=== PATIENT | female | born 1940 | race Two or more races ===

== ENCOUNTER → 2016-12-10 | Outpatient (CLI) | payer OTHER ==
--- NOTE | 2016-12-11 07:26 | HKNOTE ---
DATE OF SERVICE: 12/10/2016 MAIN COMPLAINT: Pain in the right knee. HISTORY OF MAIN COMPLAINT: The patient is a 76-year-old female from [place] who complains of pain in both knees which has been present for about 8 years. The pain in her right knee is worse than in th e left knee (60/40). The pain has become so severe that she is not able to get around. She uses a walker and/or a wheelc hair pretty much all the time to get around. She is not able to take more than 10 steps at a time b ecause of the pain. She saw Dr. Dru Serra, and he has referred her to me for diagnosis and treatmen t of her right knee problem. PRESENT COMPLAINTS: The patient gets pain in both knees as noted above. The pain in the right knee is described as being severe. The pain is aggravated by any attempt at walking and bearing weight on the right leg. She is not able to do stairs. She does get rest pain and night pain. She takes Naprosyn 500 mg twice a day for pain and indicates that this does not give her any relief. She has not had any other treatments in the past. She does not have any problems with her lower back. No numbness or tingling in her legs. She can walk about 10 steps using a walker. She gets pain in the knee with every step that she take s. She does limp all the time. She does not have a shoe lift. It is difficult for her to clip her toenails or tie her shoelaces. PAST ORTHOPEDIC HISTORY: PREVIOUS ORTHOPEDIC OPERATIONS: None. PRIOR CORTISONE INTAKE: None. ALCOHOL INTAKE: None. OTHER JOINT PROBLEMS: None. BLOOD TESTS FOR ARTHRITIS: None. PRIOR INJURIES TO HIPS OR KNEES: None. 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 PAST MEDICAL HISTORY: 1. Hypertension. 2. Arthritis. PAST SURGICAL HISTORY: Negative. ALLERGIES: NONE. MEDICATIONS: 1. Naproxen 50 mg by mouth once or twice a day. 2. Atenolol 50 mg once a day. 3. Losartan once a day. FAMILY HISTORY: Father, not applicable. Mother at unstated age of a stroke and hypertension. SYSTEMS REVIEW: Gait disturbance, hypertension. HABITS: The patient does not smoke or drink alcoholic beverages. 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 Dru Serra, [id number] [place], [place] [address] PHYSICAL EXAMINATION: GENERAL: The patient is a rather fragile looking 76-year-old female. She comes in with her 2 daugh ters. She comes in a wheelchair. HIPS: Both hips have full range of motion without pain. RIGHT KNEE: Varus alignment instability of the medial collateral ligament, 6+ crepitus of the knee and the patella. Extension lacks 15 degrees. Flexion is to 105 degrees. Pain at all limits of mot ion. The medial and lateral collateral ligaments and cruciate ligaments are intact. Barbara test is negative. There is no effusion, tenderness, scarring, or cysts. The patella tracks normally. There is no tenderness on the articular surface of the patella or in the patellar groove. The Q angle is n ormal. IMAGING: Plain x-rays of the right knee brought with her show exceedingly severe degenerative osteo arthritis of the right knee affecting mostly the medial compartment with erosion of the medial tibia l plateau. There is marked narrowing of the medial compartment as well as the patellofemoral joint. Mild osteoporosis. Osteophyte formation. Subchondral sclerosis. Intraosseous cyst formation. DIAGNOSES: 1. Exceedingly severe degenerative osteoarthritis of the right knee. 2. Hypertension. MANAGEMENT: The patient is advised that she could be greatly helped by having a knee replacement op eration. It is remarkable to me that she has not sought surgical attention for this in the past. The operation of total knee replacement was discussed with the patient and her family in a great sury l of detail. Note that all 3 of them speak perfect [place]. One of the daughters indicates that she downloaded my online book on knee arthritis including the te stimonials. The patient was given my manual titled "Arthritis of the Knee Joint" which contains information conc erning the various alternatives of treatment. It includes various forms of conservative treatment, i ncluding the use of nonsteroidal anti-inflammatory medications and their dangers. Various surgical a lternatives are discussed. The technique of total knee replacement is discussed in detail, including possible complications. Included also is a section on the possible complications of blood transfusi on, a section on postoperative precautions, and an exercise program to follow at home after total kn ee replacement. The long-term care of a total knee replacement implant is also covered in detail. Th e patient was instructed to read this manual in its entirety since it is, in and of itself, a form o f informed consent. After reading this manual, the patient will make a list of further questions paresh t may not have been covered adequately. The patient was further advised that this manual, although e xhaustive in nature, is only intended to supplement and complement a one-on-one discussion with me. FINAL DIAGNOSES: 1. Exceedingly severe degenerative osteoarthritis of the right knee. 2. Hypertension. The patient will call to have her surgery scheduled in the very near future. FOOTNOTE: The patient will need a stemmed component on the tibial side. Dictated By: LEAH BERNAL/CITLALLI Conf#: [id number] DID#: [id number]
== END | disposition home or self-care (01) ==
LOC: HKI 15:41
DX: M17.11 Unilateral primary osteoarthritis, right knee (principal); I10 Essential (primary) hypertension
CPT/HCPCS: G0463

== ENCOUNTER → 2017-01-02 | Outpatient (CLI) | payer OTHER ==
[~2017-01-02] MED LIST: HYDR12.58 PO; LOSA25TA5 PO; LOSA50TA6 PO
--- NOTE | 2017-01-02 17:22 | HKNOTE ---
DATE OF SERVICE: 01/02/2017 Patient comes in for preoperative evaluation. Scheduled to have a right total knee replacement on 0 01/03/2017. She has been cleared for surgery by Dr. Dru Serra. They have read my booklet on knee a rthritis and knee replacement surgery. Numerous questions were asked and answered. She comes in wi th her 2 daughters. She has not given any blood for autotransfusion. She understands the risks ass ociated with using hospital blood. She is agreeable to using hospital blood if needed. Note that s he has severe pain in her left knee. She has not been authorized to have x-rays or any treatment fo r the left knee, but clinically she has degenerative osteoarthritis of the left knee. She is agreeable to having me inject cortisone into her left knee while she is under anesthetic karime libra in order to assist with her recovery on her right knee replacement. Dictated By: LEAH BERNAL/CITLALLI Conf#: [id number] DID#: [id number]
== END | disposition home or self-care (01) ==
LOC: HKI 14:18
DX: Z01.818 Encounter for other preprocedural examination (principal)
CPT/HCPCS: G0463

== ENCOUNTER 2017-01-03 05:30 | Inpatient (IN) | payer OTHER ==
[2017-01-02 10:53] VITALS: BMI 28.3
--- NOTE | 2017-01-02 12:38 | PREOPHP ---
DATE OF ADMISSION: 01/03/2017 PREOPERATIVE CLEARANCE HISTORY OF PRESENT ILLNESS: Kylee Pereira is scheduled for right total knee replacement by Dr. Juanito schumacher. The patient is a 76-year-old female and she has history of severe osteoarthritis of the knee for more than 8 years and she is scheduled for right total knee replacement. The patient has history of hypertension, which is controlled with losartan 75 mg daily and low salt diet and exercise. 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 Oth er than that, there is no significant history. PHYSICAL EXAMINATION: As far as medical examination: VITAL SIGNS: Blood pressure is 120/80, temperature is 98, the height is 59 and weight is 137. ENT: Eyes are okay. NECK: Supple. BACK: No positive finding. HEART: Regular sinus rhythm. ABDOMEN: Overweight. No hepatosplenomegaly. PELVIC: Examination was refused. EXTREMITIES: There was tenderness of both knees, right more than left. ALLERGIES: The patient does not have any history of allergies. MEDICATIONS: 1. Besides the medicine for hypertension, the patient is getting also 2. Ecotrin 81 mg daily. 3. Vitamin D. LABORATORY DATA: The laboratory results are okay for surgery. There was some ST-T changes in the davin ctrocardiogram. It was evaluated by the ordnance engineer, Dr. Stein, who approved the surgery and there was no contraindication. So briefly speaking, this patient has some mild hypertension and mild arth ritis of both knees and she is cleared medically for the planned surgery. Dictated By: GENERIC AUTHOR for LEAH BENITEZ/CITLALLI Conf#: [id number] DID#: [id number]
[~2017-01-03] VITALS: Ht 147.3 cm; Wt 63.8 kg
[2017-01-03] VITALS (35 sets, daily range): BP systolic 95–162; BP diastolic 41–95; PULSE 60–88; RESP 13–25; Ht 147.3 cm; Wt 63.8 kg
[~2017-01-03 05:30] MED LIST changes: -HYDR12.58 PO; +KNEE PAIN COCKTAIL VANCO INJ SCH; -LOSA25TA5 PO; -LOSA50TA6 PO
[2017-01-03] MEDS ORDERED: ONDANSETRON 4 MG INJ IV ONE (06:00)
[2017-01-03] MEDS ORDERED: VANCOMYCIN 1 GM (PMX) 250 ML IVPB ONE (06:00)
[2017-01-03] MEDS ORDERED: SOD CHLORIDE 0.9% IVPB ONE ×3 (06:00→19:00)
[2017-01-03] MEDS ORDERED: LACTATED RINGER'S 1,000 ML IV* SCH (06:00)
[2017-01-03] MEDS ORDERED: oxyCODONE (CR) 10 MG TAB [oxyCONTIN] PO ONE (06:00)
[2017-01-03] MEDS ORDERED: ACETAMINOPHEN 1000MG/100ML IV 100 ML IVPB ONE (06:00)
[2017-01-03] MEDS ORDERED: DEXAMETHASONE 4 MG/ML 1 ML INJ IV ONE (06:00)
[2017-01-03] MEDS ORDERED: LANSOPRAZOLE 30 MG CAP PO ONE (06:00)
[2017-01-03] MEDS ORDERED: TRANEXAMIC ACID IVPB ONE ×3 (06:00→19:00)
[2017-01-03] MEDS ORDERED: CELECOXIB 200 MG CAP PO ONE (06:00)
[2017-01-03] MEDS ORDERED: LOSA25TA5 PO (06:25)
[2017-01-03] MEDS ORDERED: LOSA50TA6 PO (06:25)
[2017-01-03] MEDS ORDERED: HYDR12.58 PO (06:25)
--- NOTE | 2017-01-03 07:02 | HPN ---
Date/Time of Note Date/Time of Note DATE: 01/03/17 TIME: 07:02 Interval H&P Admission Note Pt. seen H&P reviewed: No system changes TAVARES MITCHELL PA-C Jan 03, 2017 07:02
[2017-01-03] MEDS ORDERED: METHYLENE BLUE 10 MG/ML VIAL ONE (07:23)
[2017-01-03] MEDS ORDERED: BUPIVACAINE 0.25%/EPI (SDV) 30 ML INJ ONE (07:23)
[2017-01-03] MEDS ORDERED: VANCOMYCIN 1 GM INJ ONE (07:24)
[2017-01-03] MEDS ORDERED: TOBRAMYCIN 1.2 GM POWDER ONE (07:24)
[2017-01-03] MEDS ORDERED: POLYMYXIN B 500000 UNIT INJ ONE (07:24)
[2017-01-03] MEDS ORDERED: ROPIVACAINE 0.2% 100 ML ONE (07:24)
[2017-01-03] MEDS ORDERED: BUPIVACAINE 0.5%/EPI (SDV) 30 ML INJ ONE (07:42)
[2017-01-03] MEDS ORDERED: MIDAZOLAM 1 MG/ML 2 ML INJ ONE (07:46)
[2017-01-03] MEDS ORDERED: SOD CHLORIDE 0.9% IRR SCH ×2 (08:00)
[2017-01-03] MEDS ORDERED: TRANEXAMIC ACID IRR SCH ×2 (08:00)
[2017-01-03] MEDS ORDERED: LIDOCAINE 2% (SDV) 5 ML INJ ONE (08:04)
[2017-01-03] MEDS ORDERED: PROPOFOL 20 ML ONE (08:04)
[2017-01-03] MEDS ORDERED: TRIAMCINOLONE ACET 40 MG/ML INJ ONE (08:31)
[2017-01-03] MEDS ORDERED: hydrALAzine 20 MG INJ ONE (09:13)
[2017-01-03] MEDS ORDERED: BACITRACIN 50000 UNITS INJ IRR ONE (09:22)
[2017-01-03] MEDS ORDERED: ROPIVACAINE 0.2% 100ML BAG INJ ONE (09:23)
[2017-01-03] MEDS ORDERED: ASPIRIN (EC) 325 MG TAB PO ONE (13:00)
[2017-01-03] MEDS ORDERED: SENNA/DOCUSATE NA (8.6MG/50MG) TAB PO PRN (13:00)
[2017-01-03] MEDS ORDERED: HYDROmorphONE 0.2 MG/ML PCA IV PRN (13:00)
[2017-01-03] MEDS ORDERED: FENTAnyl 50 MCG/ML VIAL IV PRN ×2 (13:00)
[2017-01-03] MEDS ORDERED: METOCLOPRAMIDE 10 MG INJ IV PRN (13:00)
[2017-01-03] MEDS ORDERED: DIPHENHYDRAMINE 50 MG INJ IM PRN (13:00)
[2017-01-03] MEDS: CEFAZOLIN 1 GM/50 ML (PMX) 50 ML IVPB SCH ×2 (13:00→20:23)
[2017-01-03] MEDS ORDERED: DIPHENHYDRAMINE 50 MG INJ IV PRN (13:00)
[2017-01-03] MEDS ORDERED: EPHEDrine SULFATE 50 MG/5 ML SYG IV PRN (13:00)
[2017-01-03] MEDS ORDERED: LABETALOL HCL 20MG INJ IV PRN (13:00)
[2017-01-03] MEDS ORDERED: DOCUSATE SODIUM 100 MG CAP PO ONE (13:00)
[2017-01-03] MEDS ORDERED: MEPERIDINE 10 MG/ML 30 ML PCA IV PRN (13:00)
[2017-01-03] MEDS ORDERED: MAGNESIUM HYDROXIDE 30ML CUP PO PRN (13:00)
[2017-01-03] MEDS ORDERED: hydrALAzine 20 MG INJ IV PRN (13:00)
[2017-01-03] MEDS ORDERED: NA PHOSPHATE/BIPHOS 133 ML ENEMA PR PRN (13:00)
[2017-01-03] MEDS ORDERED: oxyCODONE 5 MG TAB PO PRN ×2 (13:00)
[2017-01-03] MEDS ORDERED: HYDROmorphONE (0.2 MG/ML) 10ML SYG IV PRN ×2 (13:00)
[2017-01-03] MEDS ORDERED: MEPERIDINE 25 MG INJ IV PRN (13:00)
[2017-01-03] MEDS ORDERED: morphine (1 MG/ML) 10ML SYRINGE IV PRN ×2 (13:00)
[2017-01-03] MEDS ORDERED: BISACODYL 10 MG SUPP PR PRN (13:00)
[2017-01-03] MEDS ORDERED: COUMADIN NOTE XX SCH (13:00)
[2017-01-03] MEDS ORDERED: NALOXONE (0.4 MG/ML) INJ IV PRN (13:00)
[2017-01-03] MEDS ORDERED: ONDANSETRON 4 MG INJ IV PRN (13:00)
[2017-01-03] MEDS ORDERED: BETHANECHOL 25 MG TAB PO PRN (13:00)
[2017-01-03] MEDS ORDERED: MIDAZOLAM 1 MG/ML 2 ML INJ IV PRN (13:00)
--- NOTE | 2017-01-03 13:00 | PDOCDIS ---
Discharge Instructions DIAGNOSIS Discharge Diagnosis: s/p right total knee replacement CONDITION Patient Condition: Stable HOME CARE INSTRUCTIONS: Diet Instructions: Regular ACTIVITY: Activity Restrictions: Slowly Increase Activity Rest between Activity Avoid heavy lifting No Sexual Activity Do not Drive Do not operate Machinery Avoid Heavy Housework Keep Limb Elevated Weight Bearing (as tolerated and with walker (if needed)) Bathing Restrictions: Shower (Use tegaderm dressing with pad over the wound while showering. Make sure area is dry prior to removal of tegaderm after shower. Do this everyday until flor are removed around 10 days after surgery. ) FOLLOW UP/APPOINTMENTS Appointments Follow up 01/23/17 at 2:45PM Continue DVT prophylaxis Pain meds as needed Continue with physical therapy at custodial facility. TAVARES MITCHELL PA-C Jan 03, 2017 13:00
--- NOTE | 2017-01-03 13:24 | OPR ---
DATE OF OPERATION: 01/03/2017 FOOTNOTE TO THE OPERATIVE REPORT OF 01/03/2017 Note that the medial collateral ligaments are rather flimsy. The collateral ligament did, however, r emain intact. Parts of the anterior fibers were too flimsy to hold sutures so two Super Mitek sutur es were embedded in the bone and the more substantive part of the medial collateral ligaments were a nchored down to the bone. Dictated By: LEAH BERNAL/CITLALLI Conf#: [id number] DID#: [id number]
--- NOTE | 2017-01-03 13:33 | RADRPT ---
PROCEDURE: X-ray fluoroscopy guidance CLINICAL INDICATION: Right knee pain, right knee replacement, fluoroscopic guidance. TECHNIQUE: Fluoroscopic guidance was utilized for an intraoperative procedure. COMPARISON: None available FINDINGS: Fluoroscopic guidance was utilized for and intraoperative procedure. 7 seconds of fluoroscopy time w as utilized for the procedure. 3 x-ray images were obtained during the procedure in progress. Images demonstrate intraoperative surgical instruments over the knee. Severe osteoarthritis of the knee i s seen. IMPRESSION: X-ray fluoroscopic guidance utilized for intraoperative procedure. Severe osteoarthritis of the knee. Images that demonstrate intraoperative surgical instruments over the knee. Please see procedure note for details. RPTAT: AA .Dariel Fontenot MD, Date Time Electronically viewed and signed by .Dariel Fontenot MD, on 01/03/2017 13:33 .P/
--- NOTE | 2017-01-03 13:34 | RADRPT ---
PROCEDURE: XR Knee. CLINICAL INDICATION: Status post right knee replacement TECHNIQUE: AP and lateral view of the right knee were obtained. The images reviewed on a PACS wor kstation. COMPARISON: January 03, 2017 11:09 a.m. FINDINGS: Complete right knee replacement is identified. Prosthetic components are in appropriate position an d alignment. No fractures or destructive lesions are observed. Surgical drain is seen in the knee. Soft tissue air is procedural in nature. IMPRESSION: Status post right knee replacement. Prosthetic components are in appropriate position and alignment . RPTAT: AA .Dariel Fontenot MD, Date Time Electronically viewed and signed by .Dariel Fontenot MD, on 01/03/2017 13:34 .P/
--- NOTE | 2017-01-03 13:39 | RADRPT ---
PROCEDURE: XR Knee. CLINICAL INDICATION: Intraoperative localization TECHNIQUE: A single lateral view of the right knee was obtained. The images reviewed on a PACS [facility]. COMPARISON: Plain films from the same day FINDINGS: Right knee arthroplasty. A probe is directed between the femoral and tibial components. IMPRESSION: Intraoperative localization for right knee arthroplasty placement. RPTAT: QQ. .Beatrice Plata MD, MD Date Time Electronically viewed and signed by .Beatrice Plata MD, on 01/03/2017 13:39 .F/
--- NOTE | 2017-01-03 14:04 | CONS ---
DATE OF ADMISSION: 01/03/2017 DATE OF CONSULTATION: 01/03/2017 REQUESTING PHYSICIAN: Syed De León MD REASON FOR CONSULTATION: Medical management. HISTORY OF PRESENT ILLNESS: This is a pleasant 76-year-old female with past medical history of morb id obesity, severe osteoarthritis of the knee more than 8 years, hypertension. She has been having difficulty with ambulation and increased severity of the pain in her right knee and was seen and kelsy luated by the orthopedic surgeon as an outpatient. After failing outpatient means of treatme nt such as pain medication, assistive device and physical therapy, it was decided to proceed with gutierrez rgical intervention such as right total knee replacement. The patient was admitted to [facility] and after discussing the risk and benefits of the surgery and signing a consent, she was taken to the OR today on 01/03/2017 for right total knee replacement. Under general anesthesia , the patient had total right knee surgery, which patient tolerated the procedure well and was trans ported to the recovery room, where medical team was consulted for further management. At this time, the patient denies having any chest pain, shortness of breath, nausea, vomiting, diarrhea. No head ache, dizziness, lightheadedness. No change in visual acuity, diplopia, photophobia. No pain in he r extremities. No abdominal pain. No neck pain. No restricted range of motion in her neck or any other discomfort at this time. PAST MEDICAL AND SURGICAL HISTORY: 1. Obesity. 2. Hypertension. 3. Osteoarthritis. MEDICATIONS: 1. Hydrochlorothiazide. 2. Losartan. ALLERGIES: NO KNOWN DRUG ALLERGIES. FAMILY HISTORY: Positive for hypertension. SOCIAL HISTORY: Negative x3 for smoking, alcohol, illicit drugs. REVIEW OF SYSTEMS: As above per HPI, otherwise 12 review of systems was found to be negative. PHYSICAL EXAMINATION: VITAL SIGNS: Temperature 98.5, pulse 60, respirations 18, blood pressure 134/63, oxygen saturation 99% in room air. GENERAL APPEARANCE: The patient is lying in bed comfortably without any acute distress. She is herberth ke, alert, oriented. She is able to answer my questions properly. EYES AND ENT: Conjunctivae and lids are normal. Pupils are normal. Extraocular normal. Hearing g rossly normal. Lips and gums normal. Oral mucosa is moist. NECK: Supple. Trachea is midline. No lymphadenopathy. RESPIRATORY: Effort is normal. Clear to auscultation bilaterally. CARDIOVASCULAR: Normal S1, S2. Regular rhythm and rate. No murmur, no bruits, no edema. Peripher al pulses, radial pulses palpable. Capillary refill is normal. CHEST: Normal expansion of thorax during inspiration. GASTROINTESTINAL: Abdomen is soft, nontender, nondistended. Bowel sounds present. No guarding, no rebound. GENITOURINARY: Deferred. MUSCULOSKELETAL: Upper extremities within normal limits. Left lower extremity within normal limits . Right lower extremity, she is status post right knee surgery. The surgical site is dry and clean and is wrapped in dry dressing. There is a drain in place. PSYCHIATRIC: She is awake, alert, oriented. LABORATORY WORK AND IMAGING: WBC 5.6, hemoglobin 13.3, hematocrit 40.9, platelets 224. Glucose 98, BUN 11, creatinine 0.77, GFR 76, sodium 141, potassium 3.8, chloride 99, bicarbonate 27, calcium 9. 6. LFTs all within normal limits. Urinalysis negative. ASSESSMENT AND PLAN: 1. Osteoarthritis of the right knee. The patient is status post total knee replacement. Continue pain medication, physical therapy. The patient has been placed on aspirin for deep venous thrombosi s prophylaxis as per orthopedic surgeon recommendation. 2. Essential hypertension, well controlled on Losartan. 3. Obesity with BMI 29.4. Diet and exercise will be recommended. 4. Deep venous thrombosis prophylaxis, on aspirin. 5. For gastrointestinal prophylaxis, on proton pump inhibitor. 6. We will continue to monitor patient closely. Further recommendations, management and treatment as per clinical course. Total amount of time was spent for evaluation of patient and consultation note 40 minutes. Dictated By: RAUL SILVA/NTS Conf#: [id number] DID#: [id number]
[2017-01-03] MEDS: ONDANSETRON 4 MG INJ IV SCH ×2 (14:22→18:36)
[2017-01-03] MEDS: ACETAMINOPHEN 1000MG/100ML IV 100 ML IVPB SCH ×2 (14:24→21:25)
[2017-01-03] MEDS ORDERED: BACITRACIN 50000 UNITS INJ ONE (15:13)
[2017-01-03] MEDS: DEXTROSE 5%-LR 1,000 ML IV SCH (16:15)
[2017-01-03] MEDS: ZOLPIDEM 5 MG TAB PO PRN (22:35)
[2017-01-04] MEDS: ONDANSETRON 4 MG INJ IV SCH ×2 (00:12→06:20)
[2017-01-04] MEDS: DEXTROSE 5%-LR 1,000 ML IV SCH ×2 (01:02→07:33)
[2017-01-04] MEDS: CEFAZOLIN 1 GM/50 ML (PMX) 50 ML IVPB SCH (04:29)
[2017-01-04 05:04] LABS: BASOPHILS % 0.3 % (0.0-2.0); EOSINOPHILS % 0.1 % (0.0-7.0); HEMATOCRIT 28.7 % (37.0-47.0); HEMOGLOBIN 9.7 g/dl (12.0-16.0); LYMPHOCYTES # 1.2 10^3/ul (0.8-2.9); MEAN CORPUSCULAR HGB CONC 33.8 g/dl (32.0-37.0); MEAN CORPUSCULAR VOLUME 88.8 fl (82.0-101.0); MEAN PLATELET VOLUME 6.4 fl (7.4-10.4); MONOCYTE # 0.6 10^3/ul (0.3-0.9); MONOCYTES % 6.5 % (0.0-11.0); NEUTROPHIL # 7.6 10^3/ul (1.6-7.5); NEUTROPHILS % 80.1 % (39.0-77.0); PLATELET COUNT 198 10^3/UL (140-440); RED BLOOD COUNT 3.24 10^6/ul (4.20-5.40); RED CELL DISTRIBUTION WIDTH 13.8 % (11.5-14.5); UNCORRECTED WBC 9.4 10^3/ul (4.8-10.8); WHITE BLOOD COUNT 9.4 10^3/ul (4.8-10.8)
[2017-01-04] MEDS: ACETAMINOPHEN 1000MG/100ML IV 100 ML IVPB SCH ×3 (05:16→21:12)
[2017-01-04 05:26] LABS: POTASSIUM 3.6 mmol/L (3.5-5.1)
[2017-01-04 05:28] LABS: CONDITION 1; CREATININE 0.72 mg/dl (0.44-1.00)
[2017-01-04] MEDS ORDERED: BUPIVACAINE 0.25%/EPI (SDV) 30 ML INJ INJ PRN (06:00)
[2017-01-04] MEDS ORDERED: KETOROLAC 30 MG INJ INJ PRN (06:00)
[2017-01-04 06:10] LABS: ADD UMIC YES; URINE BILIRUBIN (Dip) NEGATIVE (NEGATIVE); URINE BLOOD (Dip) 2+ (NEGATIVE); URINE COLOR LT. YELLOW (YELLOW); URINE GLUCOSE (Dip) NEGATIVE (NEGATIVE); URINE KETONES (Dip) NEGATIVE (NEGATIVE); URINE LEUKOCYTE ESTERASE (Dip) NEGATIVE (NEGATIVE); URINE NITRITE (Dip) NEGATIVE (NEGATIVE); URINE TOTAL PROTEIN (Dip) NEGATIVE (NEGATIVE); URINE UROBILINOGEN (Dip) 0.2 E.U./dL (0.1-1.0)
[2017-01-04] MEDS: DEXAMETHASONE 4 MG/ML 1 ML INJ IV SCH (06:20)
[2017-01-04] MEDS: oxyCODONE 5 MG TAB PO PRN ×2 (06:28→16:21)
[2017-01-04 06:38] LABS: BACTERIA,URINE RARE; SQUAMOUS EPITHELIAL CELL,UR OCCASIONAL
[2017-01-04 07:35] VITALS: BP 125/72; RESP 16
[2017-01-04] MEDS: FERROUS FUMARATE (SR) TAB PO SCH ×2 (08:34→21:12)
[2017-01-04] MEDS: CELECOXIB 200 MG CAP PO SCH ×2 (08:35→21:12)
[2017-01-04] MEDS: ASPIRIN (EC) 325 MG TAB PO SCH ×2 (08:35→21:12)
[2017-01-04] MEDS: DOCUSATE SODIUM 100 MG CAP PO SCH ×2 (08:35→21:12)
--- NOTE | 2017-01-04 11:36 | PN ---
Date/Time of Note Date/Time of Note DATE: 01/04/17 TIME: 11:33 Assessment/Plan Lines/Catheters IV Catheter Type (from Nrsg): Peripheral IV Marion in Place (from Nrsg): Yes Assessment/Plan Assessment/Plan Stable POD #1, s/p right TKA -pain cocktail given -pain meds prn -cont ASA/SCDs for DVT prophylaxis -OOB with PT -drain removed -check AM labs. H&H slightly low. Will monitor for now. -d/c planning. Patient would like to go to [facility] upon d/c Subjective 24 Hr Interval Summary Doing well. No acute overnight events. Worked with PT. Mild pain. H&H mildy low but patient asymptomatic. VSS, afebrile. Exam/Review of Systems Vital Signs Vitals Vital Signs Date Time Temp Pulse Resp B/P Pulse Ox O2 Delivery O2 Flow Rate FiO2 01/04/17 07:35 97.8 62 16 125/72 96 01/03/17 18:10 Room Air Intake and Output 01/03/17 01/03/17 01/04/17 15:00 23:00 07:00 Intake Total 2712.7 ml 816.4 ml 1350 ml Output Total 200 ml 450 ml 1110 ml Balance 2512.7 ml 366.4 ml 240 ml Exam Free Text/Dictation Hemovac: 360cc Dressing dry Incision clean, dry, and intact without redness or drainage Thigh soft 5/5 Quadriceps, Tibialis Anterior, EHL, Gastroc, Soleus, Peroneals Normal sensation Palpable DT/PT, CR <2 sec No distal edema Results Result Diagram: 01/04/17 0425 01/04/17 0425 VICKI SOLO PA-C Jan 04, 2017 11:36
--- NOTE | 2017-01-04 16:13 | PN ---
Date/Time of Note Date/Time of Note DATE: 01/04/17 TIME: 16:11 Assessment/Plan VTE Prophylaxis VTE Prophylaxis Intervention: other Lines/Catheters IV Catheter Type (from Nrs): Peripheral IV Assessment/Plan Chief Complaint/Hosp Course 1. Osteoarthritis of the right knee status post total knee replacement - Continue pain medication, physical therapy. The patient has been placed on aspirin for deep venous thrombosis prophylaxis as per orthopedic surgeon recommendation. 2. Essential hypertension, well controlled on Losartan. 3. Obesity with BMI 29.4. Diet and exercise will be recommended. 4. Deep venous thrombosis prophylaxis, on aspirin. 5. For gastrointestinal prophylaxis, on proton pump inhibitor. Problems: Subjective 24 Hr Interval Summary Musculoskeletal: bone/joint pain Exam/Review of Systems Vital Signs Vitals Vital Signs Date Time Temp Pulse Resp B/P Pulse Ox O2 Delivery O2 Flow Rate FiO2 01/04/17 07:35 97.8 62 16 125/72 96 01/03/17 18:10 Room Air Intake and Output 01/03/17 01/03/17 01/04/17 15:00 23:00 07:00 Intake Total 2712.7 ml 816.4 ml 1350 ml Output Total 200 ml 450 ml 1110 ml Balance 2512.7 ml 366.4 ml 240 ml Exam Constitutional: alert Respiratory: clear to auscultation Cardiovascular: regular rate and rhythm Gastrointestinal: soft, No distended Musculoskeletal: nl extremities to inspection Results Result Diagram: 01/04/17 0425 01/04/17 0425 Results 24 hrs Laboratory Tests Test 01/04/17 04:21 01/04/17 04:25 Urine Bacteria RARE Urine Bilirubin NEGATIVE Urine Clarity CLEAR Urine Color LT. YELLOW Urine Glucose NEGATIVE Urine Hemoglobin 2+ H Urine Ketones NEGATIVE Urine Leukocyte Esterase NEGATIVE Urine Microscopic RBC 10-25 Urine Microscopic WBC 0-2 Urine Nitrite NEGATIVE Urine Specific [place] <=1.005 L Urine Squamous Epithelial Cells OCCASIONAL Urine Total Protein NEGATIVE Urine Urobilinogen 0.2 E.U./dL Urine pH 6.0 Anion Gap 10 Basophils # 0.0 Basophils % 0.3 Blood Morphology Comment Blood Urea Nitrogen 13 Calcium Level 8.0 L Carbon Dioxide Level 27 Chloride Level 104 Creatinine 0.72 Eosinophils # 0.0 Eosinophils % 0.1 Glucose Level 122 Hematocrit 28.7 L Hemoglobin 9.7 L Lymphocytes # 1.2 Lymphocytes % 13.0 L Mean Corpuscular Hemoglobin 30.0 Mean Corpuscular Hemoglobin Concent 33.8 Mean Corpuscular Volume 88.8 Mean Platelet Volume 6.4 L Monocytes # 0.6 Monocytes % 6.5 Neutrophils # 7.6 H Neutrophils % 80.1 H Nucleated Red Blood Cells # 0.0 Nucleated Red Blood Cells % 0.0 Platelet Count 198 Potassium Level 3.6 Red Blood Count 3.24 L Red Cell Distribution Width 13.8 Sodium Level 137 White Blood Count 9.4 Medications Medications Current Medications Oxycodone HCl (Roxicodone) 20 mg Q3H PRN PO PAIN LEVEL 8-10; Start 01/03/17 at 13:00 Oxycodone HCl (Roxicodone) 10 mg Q3H PRN PO PAIN LEVEL 4-7; Start 01/03/17 at 13:00 Oxycodone HCl 5 mg 5 mg Q3H PRN PO PAIN LEVEL 1-3 Last administered on 06:28; Admin Dose 5 MG; Start 01/03/17 at 13:00 Acetaminophen (Ofirmev 1000mg/ 100ml Iv) 100 ml @ 400 mls/hr Q8H IVPB Last administered on 01/04/17 13:16; Admin Dose 400 MLS/HR; Start 01/03/17 at 14:00 ; Stop 01/05/17 at 06:14 Zolpidem Tartrate (Ambien) 5 mg HS PRN PO INSOMNIA Last administered on 22:35; Admin Dose 5 MG; Start 01/03/17 at 13:00 Miscellaneous Information (Note) NOTE XX ; Start 01/03/17 at 13:00 Aspirin (Ecotrin) 325 mg BID PO Last administered on 01/04/17 08:35; Admin Dose 325 MG; Start 01/04/17 at 09:00 Celecoxib (Celebrex) 200 mg BID PO Last administered on 01/04/17 08:35; Admin Dose 200 MG; Start 01/04/17 at 09:00 Dexamethasone (Decadron) 4 mg DAILY@07 IV Last administered on 01/04/17 06:20 ; Admin Dose 4 MG; Start 01/04/17 at 07:00; Stop 01/07/17 at 06:59 Pantoprazole (Protonix Tab) 40 mg DAILY@06 PO ; Start 01/05/17 at 06:00 Docusate Sodium/ Ferrous Fumarate (Dorian-Sequels) 1 tab BID PO Last administered on 01/04/17 08:34; Admin Dose 1 TAB; Start 01/04/17 at 09:00 Docusate Sodium (Colace) 200 mg BID PO Last administered on 01/04/17 08:35; Admin Dose 200 MG; Start 01/04/17 at 09:00; Stop 01/07/17 at 08:59 Simethicone (Mylicon) 80 mg TID PRN PO DISTENSION/GAS/BLOATING; Start 01/03/17 at 13:00 Senna/Docusate Sodium (Senokot-S) 2 tab BID PRN PO CONSTIPATION; Start at 13:00 Magnesium Hydroxide (Milk Of Mag) 30 ml HS PRN PO CONSTIPATION; Start 01/03/17 at 13:00 Bisacodyl (Dulcolax Supp) 10 mg DAILY PRN PA CONSTIPATION; Start 01/03/17 at 13 :00 Sodium Biphosphate/ Sodium Phosphate (Fleet Enema) 133 ml DAILY PRN PA CONSTIPATION; Start 01/03/17 at 13:00 Diphenhydramine HCl (Benadryl) 25 mg Q4H PRN IM ITCHING OR RASH; Start at 13:00 Ketorolac Tromethamine (Toradol) 30 mg DAILY@06 PRN INJ ADMINSTER BY SURGEON ONLY; Start 01/04/17 at 06:00; Stop 01/08/17 at 05:59 Bupivacaine HCl/ Epinephrine Bitart (Marcaine 0.25%/ Epi (Sdv) 30 ml) 20 ml DAILY@06 PRN INJ ADMINSTER BY SURGEON ONLY; Start 01/04/17 at 06:00; Stop 01/08 at 05:59 Naloxone HCl (Narcan) 0.2 mg Q2M PRN IV DECREASED REPIRATORY RATE; Start at 13:00 ABIMAEL FAROOQ Jan 04, 2017 16:12
[2017-01-04 20:00] VITALS: BP 142/65; RESP 20
[2017-01-05] MEDS: ZOLPIDEM 5 MG TAB PO PRN ×2 (00:44→21:47)
[2017-01-05 05:16] LABS: POTASSIUM 3.5 mmol/L (3.5-5.1)
[2017-01-05 05:19] LABS: CREATININE 0.72 mg/dl (0.44-1.00)
[2017-01-05 05:29] LABS: BASOPHILS % 0.2 % (0.0-2.0); EOSINOPHILS % 0.2 % (0.0-7.0); HEMATOCRIT 28.6 % (37.0-47.0); HEMOGLOBIN 9.8 g/dl (12.0-16.0); LYMPHOCYTES # 0.9 10^3/ul (0.8-2.9); MEAN CORPUSCULAR HEMOGLOBIN 30.3 pg (29.0-33.0); MEAN CORPUSCULAR HGB CONC 34.4 g/dl (32.0-37.0); MEAN CORPUSCULAR VOLUME 88.2 fl (82.0-101.0); MEAN PLATELET VOLUME 6.8 fl (7.4-10.4); MONOCYTE # 0.5 10^3/ul (0.3-0.9); MONOCYTES % 6.3 % (0.0-11.0); NEUTROPHIL # 6.5 10^3/ul (1.6-7.5); NEUTROPHILS % 82.3 % (39.0-77.0); PLATELET COUNT 190 10^3/UL (140-440); RED BLOOD COUNT 3.24 10^6/ul (4.20-5.40); RED CELL DISTRIBUTION WIDTH 13.6 % (11.5-14.5); UNCORRECTED WBC 7.9 10^3/ul (4.8-10.8); WHITE BLOOD COUNT 7.9 10^3/ul (4.8-10.8)
[2017-01-05 06:08] LABS: CONDITION 1
[2017-01-05] MEDS: DEXAMETHASONE 4 MG/ML 1 ML INJ IV SCH (06:18)
[2017-01-05] MEDS: PANTOPRAZOLE (EC) 40 MG TAB PO SCH (06:18)
[2017-01-05] MEDS: ACETAMINOPHEN 1000MG/100ML IV 100 ML IVPB SCH (06:23)
[2017-01-05 07:34] VITALS: BP 154/73; RESP 16
[2017-01-05] MEDS: CELECOXIB 200 MG CAP PO SCH ×2 (10:05→21:43)
[2017-01-05] MEDS: FERROUS FUMARATE (SR) TAB PO SCH ×2 (10:05→21:43)
[2017-01-05] MEDS: ASPIRIN (EC) 325 MG TAB PO SCH ×2 (10:05→21:43)
[2017-01-05] MEDS: DOCUSATE SODIUM 100 MG CAP PO SCH ×2 (10:06→21:43)
--- NOTE | 2017-01-05 10:11 | PN ---
Date/Time of Note Date/Time of Note DATE: 01/05/17 TIME: 10:10 Assessment/Plan Lines/Catheters IV Catheter Type (from Nrsg): Peripheral IV Assessment/Plan Assessment/Plan Stable POD #2, s/p right TKA -pain cocktail given -pain meds as needed -continue ASA/SCDs for DVT prophylaxis -OOB with PT -check AM labs. H&H stable -d/c planning. Will likely transfer to [facility] tomorrow. Subjective 24 Hr Interval Summary Doing well. No acute overnight events. Denies significant pain. Progressing well with PT. VSS, afebrile. Plan to d/c tomorrow to [facility]. Exam/Review of Systems Vital Signs Vitals Vital Signs Date Time Temp Pulse Resp B/P Pulse Ox O2 Delivery O2 Flow Rate FiO2 01/05/17 07:34 98.0 68 16 154/73 95 01/03/17 18:10 Room Air Intake and Output 01/04/17 01/04/17 01/05/17 15:00 23:00 07:00 Intake Total 100 ml 1600 ml 600 ml Output Total 850 ml 820 ml Balance 100 ml 750 ml -220 ml Exam Free Text/Dictation Dressing dry Incision clean, dry, and intact without redness or drainage Thigh soft 5/5 Quadriceps, Tibialis Anterior, EHL, Gastroc, Soleus, Peroneals Normal sensation Palpable DT/PT, CR <2 sec No distal edema Results Result Diagram: 01/05/179 01/05/179 VICKI SOLO PA-C Jan 05, 2017 10:11
--- NOTE | 2017-01-05 13:08 | PN ---
Date/Time of Note Date/Time of Note DATE: 01/05/17 TIME: 13:03 Assessment/Plan VTE Prophylaxis VTE Prophylaxis Intervention: other Lines/Catheters IV Catheter Type (from Nrs): Saline Lock Assessment/Plan Chief Complaint/Hosp Course 1. Osteoarthritis of the right knee status post total knee replacement - Continue pain medication, physical therapy. The patient has been placed on aspirin for deep venous thrombosis prophylaxis as per orthopedic surgeon recommendation. 2. Essential hypertension -Home regimen had been Losartan 50 mg QAM and 25 Q Evening and HCTZ 12.5 QAM, BP reportedly was still high on that regimen so have increased the evening Losartan dose to 50 mg, if BP is stable on this regimen today and tomorrow then regimen should be changed to this new regimen upon DC 3. Obesity with BMI 29.4. Diet and exercise will be recommended. 4. Deep venous thrombosis prophylaxis, on aspirin. 5. For gastrointestinal prophylaxis, on proton pump inhibitor Dispo- Ortho likely to DC to Rehab center tomorrow Problems: Subjective 24 Hr Interval Summary Constitutional: no complaints Exam/Review of Systems Vital Signs Vitals Vital Signs Date Time Temp Pulse Resp B/P Pulse Ox O2 Delivery O2 Flow Rate FiO2 01/05/17 07:34 98.0 68 16 154/73 95 01/03/17 18:10 Room Air Intake and Output 01/04/17 01/04/17 01/05/17 15:00 23:00 07:00 Intake Total 100 ml 1600 ml 600 ml Output Total 850 ml 820 ml Balance 100 ml 750 ml -220 ml Exam Constitutional: alert, oriented Respiratory: clear to auscultation Cardiovascular: regular rate and rhythm Gastrointestinal: soft, No distended Musculoskeletal: nl extremities to inspection Results Result Diagram: 01/05/17 0429 01/05/17 0429 Results 24 hrs Laboratory Tests Test 01/05/17 04:29 Anion Gap 9 Basophils # 0.0 Basophils % 0.2 Blood Morphology Comment Blood Urea Nitrogen 13 Calcium Level 8.0 L Carbon Dioxide Level 29 Chloride Level 105 Creatinine 0.72 Eosinophils # 0.0 Eosinophils % 0.2 Glucose Level 109 Hematocrit 28.6 L Hemoglobin 9.8 L Lymphocytes # 0.9 Lymphocytes % 11.0 L Mean Corpuscular Hemoglobin 30.3 Mean Corpuscular Hemoglobin Concent 34.4 Mean Corpuscular Volume 88.2 Mean Platelet Volume 6.8 L Monocytes # 0.5 Monocytes % 6.3 Neutrophils # 6.5 Neutrophils % 82.3 H Nucleated Red Blood Cells # 0.0 Nucleated Red Blood Cells % 0.0 Platelet Count 190 Potassium Level 3.5 Red Blood Count 3.24 L Red Cell Distribution Width 13.6 Sodium Level 139 White Blood Count 7.9 Medications Medications Current Medications Oxycodone HCl (Roxicodone) 20 mg Q3H PRN PO PAIN LEVEL 8-10; Start 01/03/17 at 13:00 Oxycodone HCl (Roxicodone) 10 mg Q3H PRN PO PAIN LEVEL 4-7; Start 01/03/17 at 13:00 Oxycodone HCl (Roxicodone) 5 mg Q3H PRN PO PAIN LEVEL 1-3 Last administered on 01/04/17 16:21; Admin Dose 5 MG; Start 01/03/17 at 13:00 Zolpidem Tartrate (Ambien) 5 mg HS PRN PO INSOMNIA Last administered on 00:44; Admin Dose 5 MG; Start 01/03/17 at 13:00 Miscellaneous Information (Note) NOTE XX ; Start 01/03/17 at 13:00 Aspirin (Ecotrin) 325 mg BID PO Last administered on 01/05/17 10:05; Admin Dose 325 MG; Start 01/04/17 at 09:00 Celecoxib (Celebrex) 200 mg BID PO Last administered on 01/05/17 10:05; Admin Dose 200 MG; Start 01/04/17 at 09:00 Dexamethasone (Decadron) 4 mg DAILY@07 IV Last administered on 01/05/17 06:18 ; Admin Dose 4 MG; Start 01/04/17 at 07:00; Stop 01/07/17 at 06:59 Pantoprazole (Protonix Tab) 40 mg DAILY@06 PO Last administered on 01/05/17 06 :18; Admin Dose 40 MG; Start 01/05/17 at 06:00 Docusate Sodium/ Ferrous Fumarate (Dorian-Sequels) 1 tab BID PO Last administered on 01/05/17 10:05; Admin Dose 1 TAB; Start 01/04/17 at 09:00 Docusate Sodium (Colace) 200 mg BID PO Last administered on 01/05/17 10:06; Admin Dose 200 MG; Start 01/04/17 at 09:00; Stop 01/07/17 at 08:59 Simethicone (Mylicon) 80 mg TID PRN PO DISTENSION/GAS/BLOATING; Start 01/03/17 at 13:00 Senna/Docusate Sodium (Senokot-S) 2 tab BID PRN PO CONSTIPATION; Start at 13:00 Magnesium Hydroxide (Milk Of Mag) 30 ml HS PRN PO CONSTIPATION; Start 01/03/17 at 13:00 Bisacodyl (Dulcolax Supp) 10 mg DAILY PRN NC CONSTIPATION; Start 01/03/17 at 13 :00 Sodium Biphosphate/ Sodium Phosphate (Fleet Enema) 133 ml DAILY PRN NC CONSTIPATION; Start 01/03/17 at 13:00 Diphenhydramine HCl (Benadryl) 25 mg Q4H PRN IM ITCHING OR RASH; Start at 13:00 Ketorolac Tromethamine (Toradol) 30 mg DAILY@06 PRN INJ ADMINSTER BY SURGEON ONLY; Start 01/04/17 at 06:00; Stop 01/08/17 at 05:59 Bupivacaine HCl/ Epinephrine Bitart (Marcaine 0.25%/ Epi (Sdv) 30 ml) 20 ml DAILY@06 PRN INJ ADMINSTER BY SURGEON ONLY; Start 01/04/17 at 06:00; Stop 01/08 at 05:59 Naloxone HCl (Narcan) 0.2 mg Q2M PRN IV DECREASED REPIRATORY RATE; Start at 13:00 Losartan Potassium (Cozaar) 50 mg BID PO ; Start 01/05/17 at 12:00 Hydrochlorothiazide (Hydrochlorothiazide) 12.5 mg DAILY PO ; Start 01/06/17 at 09:00 ABIMAEL FAROOQ Jan 05, 2017 13:08
[2017-01-05] MEDS: LOSARTAN 50 MG TAB PO SCH ×2 (14:53→21:43)
[2017-01-06] MEDS: PANTOPRAZOLE (EC) 40 MG TAB PO SCH (05:56)
[2017-01-06] MEDS: DEXAMETHASONE 4 MG/ML 1 ML INJ IV SCH (06:03)
[2017-01-06 06:50] LABS: BASOPHILS % 0.4 % (0.0-2.0); EOSINOPHILS % 0.6 % (0.0-7.0); HEMATOCRIT 28.1 % (37.0-47.0); HEMOGLOBIN 9.7 g/dl (12.0-16.0); LYMPHOCYTES # 1.2 10^3/ul (0.8-2.9); LYMPHOCYTES % 16.9 % (15.0-51.0); MEAN CORPUSCULAR HEMOGLOBIN 30.4 pg (29.0-33.0); MEAN CORPUSCULAR HGB CONC 34.4 g/dl (32.0-37.0); MEAN CORPUSCULAR VOLUME 88.5 fl (82.0-101.0); MEAN PLATELET VOLUME 6.8 fl (7.4-10.4); MONOCYTE # 0.5 10^3/ul (0.3-0.9); MONOCYTES % 7.5 % (0.0-11.0); NEUTROPHIL # 5.3 10^3/ul (1.6-7.5); NEUTROPHILS % 74.6 % (39.0-77.0); PLATELET COUNT 192 10^3/UL (140-440); RED BLOOD COUNT 3.17 10^6/ul (4.20-5.40); RED CELL DISTRIBUTION WIDTH 13.9 % (11.5-14.5); UNCORRECTED WBC 7.1 10^3/ul (4.8-10.8); WHITE BLOOD COUNT 7.1 10^3/ul (4.8-10.8)
[2017-01-06 06:55] LABS: CONDITION 1
--- NOTE | 2017-01-06 08:07 | PN ---
Date/Time of Note Date/Time of Note DATE: 01/06/17 TIME: 08:02 Assessment/Plan VTE Prophylaxis VTE Prophylaxis Intervention: ambulation, SCD's, other (Aspirin 325 mg twice daily) Lines/Catheters IV Catheter Type (from Nrsg): Saline Lock Assessment/Plan Assessment/Plan -Pain Cocktail Given and Drains removed. -Pain Meds as needed -Dress change performed today -ASA for DVT Prophylaxis x 6 weeks outpatient discussed. -Continue monitoring as outpatient on discharge -Follow-up at scheduled postop outpatient appointment or sooner if there is any issue. -Tegaderm dressings given with specific instructions to use as outpatient to keep wound dry until flor are moved in around 10 days. -Patient Stable -Discharge to [facility] Subjective 24 Hr Interval Summary 76-year-old female postop day 3 status post right total knee replacement. Denies any pain complaints. Patient is up and walking throughout hallways with physical therapy. Uses front wheeled walker for assisted ambulation. Very pleased status post surgery. Denies any calf pain, chest pain or shortness of breath. Constitutional: ambulates, no complaints Pain Control: well controlled Exam/Review of Systems Vital Signs Vitals Vital Signs Date Time Temp Pulse Resp B/P Pulse Ox O2 Delivery O2 Flow Rate FiO2 01/05/17 07:34 98.0 68 16 154/73 95 01/03/17 18:10 Room Air Intake and Output 01/05/17 01/05/17 01/06/17 15:00 23:00 07:00 Intake Total 1280 ml 400 ml Output Total 3050 ml 800 ml Balance -1770 ml -400 ml Exam Free Text/Dictation -Hemovac: Intact -Pain Cocktail Drains: Intact -Incision: Clean, Dry and Intact without any redness or drainage -5/5 Tibialis Anterior, EHL Gastrocnemius/Soleus and Peroneals -Normal Sensation -Palpable DP/PT, Capillary Refill <2 secs -No Distal Edema -Negative Brianne Sign/No calf pain -Toes Freely Movable Constitutional: alert, oriented, well developed Results Result Diagram: 01/06/17 0430 01/05/17 0429 TAVARES MITCHELL PA-C Jan 06, 2017 08:07
--- NOTE | 2017-01-06 08:24 | DS ---
Date/Time of Note Date/Time of Note DATE: 01/06/17 TIME: 08:19 Discharge Summary Admission/Discharge Info Admit Date/Time Jan 03, 2017 at 05:30 Discharge Date/Time 01/07/17 Final Diagnosis Status post right total knee replacement. Patient Condition: Stable Hospital Course On the day of admission, the patient underwent right total knee replacement Intraoperative complications: None Postoperative complications: None The patient was given prophylactic antibiotics and anticoagulants. On the day of surgery and first postoperative day patient was started on gait training and was taught usual restrictions following right total knee replacement Suction drain removed on the first postoperative day and the dressings were changed. The wound was found to be clean and healing well. There was no sign of infection. Pain cocktail given. On the second postoperative day, patient continued with inpatient PT. Dressings were changed. Wound was found to be clean and healing well. No signs of infection. Pain cocktail given. On the day of discharge, the wound was clean and healing well; there was no sign of infection. The dressings were changed. Additional Tegaderm was provided for patient with instructions on how to use while showering to keep wound dry. Patient kept an additional day as she needed to be cleared by PT in regards to ability to climb steps. Discharge Temperature: 98.2 Discharge White Blood Cell Count: 7.7 Discharge Hemoglobin: 10.9 The patient was discharged Home with Home health. The patient will be seen in office at scheduled postoperative evaluation date given on their preoperative exam. Should patient complain of any problems prior to scheduled postoperative evaluation date, they may call into outpatient clinic to determine if they need to be scheduled at sooner appointment to be seen immediately if needed. Discharge medications: As per medication reconciliation form Diet: Same as preadmission diet. This is Tavares Babin PA-C dictating discharge summary for Dr. Syed De León. Home Meds Active Scripts Losartan Potassium* (Losartan Potassium*) 50 Mg Tablet, 50 MG PO BID for 30 Days , TAB Prov:AIRAM CUMMINGS BILLING REP 01/07/17 Reported Medications Hydrochlorothiazide* (Hydrochlorothiazide*) 12.5 Mg Tablet, 12.5 MG PO DAILY, # 30 TAB 01/03/17 Discontinued Reported Medications Losartan Potassium* (Losartan Potassium*) 50 Mg Tablet, 50 MG PO QAM, TAB 01/03/17 Losartan Potassium* (Losartan Potassium*) 25 Mg Tablet, 25 MG PO QPM, TAB 01/03/17 Follow-up Plan Follow-up on January 23, 2017 at 2:45 PM DVT prophylaxis discussed in detail Dressing changes in regards to Tegaderm dressing to keep wound dry while showering discussed in detail with patient. Tegaderm dressings provided. Pain medications as needed for pain complaints. Pending Labs Laboratory Tests Test 01/06/17 04:30 Basophils # 0.010^3/ul (0.0-0.1) Basophils % 0.4% (0.0-2.0) Blood Morphology Comment Eosinophils # 0.010^3/ul (0.0-0.5) Eosinophils % 0.6% (0.0-7.0) Hematocrit 28.1% (37.0-47.0) Hemoglobin 9.7g/dl (12.0-16.0) Lymphocytes # 1.210^3/ul (0.8-2.9) Lymphocytes % 16.9% (15.0-51.0) Mean Corpuscular Hemoglobin 30.4pg (29.0-33.0) Mean Corpuscular Hemoglobin Concent 34.4g/dl (32.0-37.0) Mean Corpuscular Volume 88.5fl (82.0-101.0) Mean Platelet Volume 6.8fl (7.4-10.4) Monocytes # 0.510^3/ul (0.3-0.9) Monocytes % 7.5% (0.0-11.0) Neutrophils # 5.310^3/ul (1.6-7.5) Neutrophils % 74.6% (39.0-77.0) Nucleated Red Blood Cells # 0.010^3/ul (0.0-0.0) Nucleated Red Blood Cells % 0.0/100WBC (0.0-0.0) Platelet Count 62188^3/UL (140-440) Red Blood Count 3.1710^6/ul (4.20-5.40) Red Cell Distribution Width 13.9% (11.5-14.5) White Blood Count 7.110^3/ul (4.8-10.8) TAVARES MITCHELL PA-C Jan 06, 2017 08:24
[2017-01-06 09:04] VITALS: BP 145/79; RESP 18
[2017-01-06] MEDS: DOCUSATE SODIUM 100 MG CAP PO SCH ×2 (09:06→20:29)
[2017-01-06] MEDS: LOSARTAN 50 MG TAB PO SCH ×2 (09:07→21:52)
[2017-01-06] MEDS: HYDROCHLOROTHIAZIDE 12.5 MG CAP PO SCH (09:07)
[2017-01-06] MEDS: CELECOXIB 200 MG CAP PO SCH ×2 (09:07→21:51)
[2017-01-06] MEDS: ASPIRIN (EC) 325 MG TAB PO SCH ×2 (09:08→21:51)
[2017-01-06] MEDS: FERROUS FUMARATE (SR) TAB PO SCH ×2 (09:08→21:51)
--- NOTE | 2017-01-06 11:31 | PN ---
DATE: 01/06/2017 SUBJECTIVE DATA: The patient has been walking around the unit with the help of a walker. Right knee pain well controlled. OBJECTIVE: VITAL SIGNS: Temperature 97.8, pulse rate 79, respiratory rate 18, blood pressure 145/70, oxygen saturation 94% on room air. GENERAL: This is a slightly overweight female patient lying in bed in no apparent distress. HEENT: Head normocephalic and atraumatic. Eyes: Anicteric sclerae. Conjunctivae clear. ENT: Nasal septum is midline. Oral mucosa is moist. NECK: Supple. No JVD noticed. RESPIRATORY: Bilaterally clear to auscultation. No adventitious breath sounds. No use of accessory muscles of respiration. CARDIAC: Regular rate and rhythm. No murmurs. ABDOMEN: Soft, nontender and nondistended. Bowel sounds positive in all 4 quadrants. GENITOURINARY: Deferred. EXTREMITIES: No cyanosis, no clubbing. Right knee incision is clean, dry and intact without any redness or drainage. No edema. Peripheral pulses are palpable. NEUROLOGIC: The patient is awake, alert and oriented. Cranial nerves are grossly intact. LABORATORY AND DIAGNOSTIC DATA: None for today. CBC: WBC 7.1, hemoglobin 9.7 , hematocrit 28.1, platelet count 192. ASSESSMENT AND PLAN: 1. Right knee osteoarthritis, status post total right knee replacement. Continue physical therapy and pain management. 2. Essential hypertension. Blood pressure currently well controlled. Continue antihypertensives. 3. Normocytic normochromic anemia. Etiology unclear. H and H stable. 4. Obesity with a BMI of 29.4 kilograms per meter square. Weight reduction advised. 5. Fluid, electrolytes and nutrition. Regular diet as tolerated. 6. Deep venous thrombosis prophylaxis. On aspirin as per orthopedic surgery. 7. Gastrointestinal prophylaxis. On proton pump inhibitors. PLAN: The patient is medically stable to be discharged to a rehabilitation facility. The case was discussed with Dr. Markham. Thank you for the consult. AIRAM MARKHAM MD, AM/CITLALLI Conf#: [id number] DID#: [id number] MTDD
--- NOTE | 2017-01-06 13:29 | OPR ---
DATE OF OPERATION: 01/03/2017 SURGEON: Syed De León MD FUNERAL LOCATION MANAGER: Oma Couch PA-C ANESTHESIOLOGIST: Mahad Meza MD PREOPERATIVE DIAGNOSIS: Exceedingly severe degenerative osteoarthritis of the right knee. POSTOPERATIVE DIAGNOSIS: Exceedingly severe degenerative osteoarthritis of the right knee. OPERATION PERFORMED: Right total knee replacement (arthroplasty of the knee, condylar plateau media l and lateral compartments with patella resurfacing, CPT 24273). FINDINGS AT SURGERY: JUSTIFICATION FOR SURGERY: The knee was found to have end-stage osteoarthritis. The patient is a v fiordaliza active 76-year-old whose activities of daily living are markedly affected by the arthritic knee. An extensive course of conservative care has been tried prior to embarking on the knee replacement operation. There can be no reasonable expectation that any further conservative treatment will nacho e any improvement to this patient's pain level and lifestyle. The risks and complications of the gutierrez rgery were discussed with the patient at the preoperative visit as well as the risks and possible co mplications of blood transfusion using hospital blood. The patient is agreeable to using hospital b lood if needed. DESCRIPTION OF PROCEDURE: The patient was given intravenous antibiotics 1 hour prior to surgery. A n epidural anesthetic was initiated in the ICU holding area. The patient was taken to the operating room and given a light general anesthetic. The leg, foot, and ankle were prepared and draped in th e usual sterile fashion. The center of the ankle was marked at the midpoint between the 2 malleoli with a sterile marking pen. A tourniquet around the thigh was inflated to 250 mmHg after the leg bedolla d been exsanguinated using an Esmarch bandage. The tourniquet was inflated at the initiation of pro cedure for a short period and was then again reinflated at the time of cementing the components part s. The total tourniquet time was minutes. A longitudinal incision was made over the anterior aspect of the knee. The incision extended from t he tibial tubercle to a point just above the patella. The medial capsule was exposed by sharp and b bert dissection, and was incised 1/4 inch medial to the patella. A marking stitch was set on each s matt of the incision at the midpoint of the capsule so as to enable accurate reapproximation at the e nd of the operation. A vastus split was made in the vastus medialis extending from the superior tamra e of the patella for approximately 5 cm between the line with the muscle fibers. The ends of the mu scle split at the patella were marked with a marking stitch on each side for later accurate reapprox imation. The patella was reflected laterally and osteophytes around the rim of the patella were rem joe. Osteophytes along the lateral femoral condyle were removed so as to facilitate lateral reflec tion of the patella. Posteromedial osteophytes were removed on the lateral side as well, so as to f ree up the lateral collateral ligament. Medial femoral osteophytes and posteromedial femoral osteop hytes were also removed at this time. This allowed for the knee to be brought into a more normal al ignment. A segment of bone was cut from the articular surface of the patella using a caliper to det ermine the exact thickness to be removed. The remaining thickness of the patella was 16 mm. The kn ee was flexed, and the patella was displaced laterally without eversion. Osteophytes in the femoral notch were removed. The remnants of the medial and lateral menisci were excised and the cruciate l igaments were excised. The medial collateral ligament was elevated as an osteo-periosteal flap from the proximal tibia. The distal end of the medial collateral ligament remained attached to the tibi a throughout the operation. The tibia was retracted forward with Hohmann retractor, inserted children counselor ior to the midpoint of the proximal tibia. The tibial jig was set in place in such a way as to alig n longitudinally with the anterior tibial spine, with the junction of the middle and medial 2/3 of t he patella tendon, and with the posterior intercondylar eminence of the tibia. An AP and lateral x- ray was obtained with the alignment jig in place. This showed that the alignment was satisfactory a fter some slight adjustments were made. The posterior slope of the tibia was set at 6 degrees. The tibial cutting block was attached to the proximal tibia with 2 Steinmann pins. An external alignme nt orestes was placed on the cutting block to confirm the alignment of the cutting block. An Andreas Wing feeler gauge was now placed on the superior aspect of the cutting block to further confirm the post erior slope of the tibia and the depth of the cut to be made. An oscillating saw was used to remove an appropriate amount of bone from the proximal tibia with the healthy side being used to measure t he cutting depth. The lateral femoral condyle of the distal femur was measured to determine the kendra ropriate size for the femoral component. The anterior condyle of the femur was partially removed wi th a rongeur. A medium-sized cutting block was attached to the distal femur with 2 Steinmann pins t hrough the pin holes in the block. The external alignment jig of this cutting block was lined up wi th the anterior surface of the femur and a central intercondylar hole for the intramedullary orestes was drilled through the hole in the alignment block. The block was removed. A long Waterpik nozzle wa s used to flush fat from the intramedullary canal. The appropriately sized cutting block was now at tached to the femur by means of an intramedullary orestes. The linking guide was inserted into the slot in the base of the femoral cutting block with the knee set at 90 degrees of flexion and with the li nking guide set flush with the proximal tibial cut in order to set the appropriate rotational alignm ent on the femoral cutting block. Ligament balance was checked at this point and was found to be ve ry satisfactory. Once the rotational alignment had been determined, and the ligaments found to be b alanced, the femoral cutting block was secured to the distal femur with 2 Steinmann pins. The anter ior and posterior cuts of the distal femur were made off the femoral cutting block. The cutting blo ck was removed and a spacer block was used to measure the flexion gap which was found to be mm. The same spacer block size without the femoral element was used with the leg in extension to determi ne the amount of distal femur to be removed in the transverse plane. A 5-degree distal cutting bloc k was now set on the femoral intramedullary orestes, and the orestes was inserted into the intramedullary ca nal. The appropriate amount of bone to be removed was determined. The femoral cutting block was pi nned to the anterior surface of the femur with 2 Steinmann pins. The appropriate amount of bone was resected off the distal femur to give an extension gap equal to the thickness of the flexion gap. The cut needed to be repeated after initial cut in order to produce an extension gap the same size a s the flexion gap. By using the appropriate cutting blocks, the rest of the femoral cuts were made. The femoral trial component was installed and was found to fit perfectly. The femoral trial component was removed. T he proximal tibia was sized, and the appropriate tibial tray selected. The central fixation hole in the tibia was made using the tibial tray template and the appropriate instruments. The femoral and tibial trials and the trial tibial insert were installed, and the patella was prepared to accept e 32 mm-sized patella dome component. The trial components were all removed. The tourniquet was in flated. Soft tissues around the knee, especially the posterior capsule, were injected with a mixtur e of Naropin, Toradol, morphine, and clonidine. The cut surfaces of the bones were cleaned with pul satile Water Jet lavage and thoroughly dried. Sclerotic bone surfaces were drilled with a 1/8-inch drill. The tibial trial component was installed with methyl methacrylate cement followed by the fem oral component. While the femoral component was being installed the cement suddenly became hard to a degree that was not expected. Note, that the operating room was very hot today. Before we could seat the femoral component all the way the cement was hard. We normally extend the knee with a trial tibial component in place while the cement hardens. Although we had made cuts for 15 mm flexion an d extension gaps the 12.5 mm insert was inserted. Cement was used on all 3 components. The cement was finger packed into the cut surfaces of the bone and pressurized with a rubber dam in order to ge t good interdigitation of the cement into the bone. A lateral x-ray of the knee was obtained while the cement was hardening with the anticipated appropriate spacer trial in place. Once the cement wa s hard, all extraneous cement was removed. The cut edges of the medial capsule were held together a t the midpoint with a towel clip, and the knee was put through a full range of motion. The patella was found to track satisfactorily. A lateral release was not required. At this point, the patella was found to track very well in the patellar groove of the femoral component. Once all the cement h ad been removed the trial 15 mm insert was installed. The medial collateral ligaments now tightened up compared to the 12.5 mm insert. The knee was frequently irrigated with normal saline containing antibiotics with pulsatile lavage th roughout the entire operation as a prophylactic measure against infection. Once the cement was hard , the tourniquet was released. Bleeding points were cauterized. The total tourniquet time was. e patient's vital signs remained stable throughout the operation. The permanent rotating bearing was installed. Superficial and deep Hemovac drains were set in place . The wound was closed using interrupted Vicryl on the capsule with FiberWire used at strategic poi nts such as the attachment of the distal ends of the vastus medialis at the split, and the tibial te ndon was also attached to the osteo-periosteal flap with FiberWire. The rest of the medial capsule was closed with interrupted Vicryl. A subcuticular stitch was inserted and flor were used on the skin. The usual sterile dressings were applied. A Chente-Warren compression dressing was applied a fter a sterile cooling pad had been set in place against the deep tissues by sterile cast padding. The patient's condition at the end of the procedure was satisfactory. Vital signs remained stable t hroughout the operation. The patient returned to the recovery room in stable condition. X-rays wer e obtained in the recovery room. Calf pumps were applied to both legs in the operating room. There were no problems or complications as far as we know. The sponge and instrument counts were correct . COMPONENT INFORMATION: KNEE IMPLANT TYPE: LCS. 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
[2017-01-06 19:27] VITALS: BP 176/81; RESP 21
[2017-01-06 21:50] VITALS: BP 150/68; PULSE 70
[2017-01-06] MEDS: oxyCODONE 5 MG TAB PO PRN (21:52)
[2017-01-06] MEDS: ZOLPIDEM 5 MG TAB PO PRN (23:51)
[2017-01-07] MEDS: PANTOPRAZOLE (EC) 40 MG TAB PO SCH (06:11)
[2017-01-07 06:41] LABS: BASOPHILS % 0.3 % (0.0-2.0); EOSINOPHILS # 0.1 10^3/ul (0.0-0.5); EOSINOPHILS % 1.6 % (0.0-7.0); HEMATOCRIT 31.4 % (37.0-47.0); HEMOGLOBIN 10.9 g/dl (12.0-16.0); LYMPHOCYTES # 1.6 10^3/ul (0.8-2.9); LYMPHOCYTES % 20.6 % (15.0-51.0); MEAN CORPUSCULAR HEMOGLOBIN 30.5 pg (29.0-33.0); MEAN CORPUSCULAR HGB CONC 34.6 g/dl (32.0-37.0); MEAN CORPUSCULAR VOLUME 88.1 fl (82.0-101.0); MEAN PLATELET VOLUME 6.8 fl (7.4-10.4); MONOCYTE # 0.5 10^3/ul (0.3-0.9); MONOCYTES % 6.9 % (0.0-11.0); NEUTROPHIL # 5.4 10^3/ul (1.6-7.5); NEUTROPHILS % 70.6 % (39.0-77.0); PLATELET COUNT 234 10^3/UL (140-440); RED BLOOD COUNT 3.56 10^6/ul (4.20-5.40); UNCORRECTED WBC 7.7 10^3/ul (4.8-10.8); WHITE BLOOD COUNT 7.7 10^3/ul (4.8-10.8)
--- NOTE | 2017-01-07 07:05 | PN ---
Date/Time of Note Date/Time of Note DATE: 01/07/17 TIME: 07:01 Assessment/Plan VTE Prophylaxis VTE Prophylaxis Intervention: ambulation, SCD's, other (Aspirin 325 mg twice daily) Lines/Catheters IV Catheter Type (from Nrs): Saline Lock [place] in Place (from Nrs): No Assessment/Plan Chief Complaint/Hosp Course Problems: Assessment/Plan -Pain Meds as needed -Dress change performed today -ASA for DVT Prophylaxis x 6 weeks outpatient discussed. -Continue monitoring as outpatient on discharge -Follow-up at scheduled postop outpatient appointment or sooner if there is any issue. -Tegaderm dressings given yesterday with specific instructions to use as outpatient to keep wound dry until flor are moved in around 10 days. -Patient Stable -Discharge Home with home health after clearance from physical therapy and patient's ability to ascend and descend steps. Subjective 24 Hr Interval Summary 76-year-old female postop day 4 status post right total knee replacement. Patient continues with minimal pain complaints. Patient is up and walking with front wheeled walker. Patient originally scheduled for discharge home yesterday (01/06/2017), but, patient has yet to be cleared by physical therapy in regards to her abilities to ascend and descend steps. Patient was originally scheduled to be discharged home with home health, but then requested snf facility. After evaluation yesterday, it was determined that patient is a eligible candidate to be discharged home with home health. Patient continues to do well status post surgery. Constitutional: ambulates, no complaints Pain Control: well controlled Exam/Review of Systems Vital Signs Vitals Vital Signs Date Time Temp Pulse Resp B/P Pulse Ox O2 Delivery O2 Flow Rate FiO2 01/06/17 21:50 70 150/68 01/06/17 19:27 98.1 21 97 01/03/17 18:10 Room Air Intake and Output 01/06/17 01/06/17 01/07/17 15:00 23:00 07:00 Intake Total 920 ml 400 ml Output Total 2 ml Balance 918 ml 400 ml Exam Free Text/Dictation -Hemovac: Removed -Pain Cocktail Drains: Removed -Incision: Clean, Dry and Intact without any redness or drainage -5/5 Tibialis Anterior, EHL Gastrocnemius/Soleus and Peroneals -Normal Sensation -Palpable DP/PT, Capillary Refill <2 secs -No Distal Edema -Negative Brianne Sign/No calf pain -Toes Freely Movable Results Result Diagram: 01/06/17 0430 01/05/17 0429 TAVARES MITCHELL PA-C Jan 07, 2017 07:05
[2017-01-07 07:06] LABS: CONDITION 1
[2017-01-07 08:30] VITALS: BP 175/81; RESP 19
[2017-01-07] MEDS: HYDROCHLOROTHIAZIDE 12.5 MG CAP PO SCH (08:46)
[2017-01-07] MEDS: CELECOXIB 200 MG CAP PO SCH (08:46)
[2017-01-07] MEDS: FERROUS FUMARATE (SR) TAB PO SCH (08:47)
[2017-01-07] MEDS: LOSARTAN 50 MG TAB PO SCH (08:47)
[2017-01-07] MEDS: ASPIRIN (EC) 325 MG TAB PO SCH (08:47)
[2017-01-07] MEDS ORDERED: LOSA50TA6 PO (10:05)
--- NOTE | 2017-01-07 10:07 | PN ---
Date/Time of Note Date/Time of Note DATE: 01/07/17 TIME: 10:07 Assessment/Plan VTE Prophylaxis VTE Prophylaxis Intervention: other (Aspirin) Lines/Catheters IV [facility]from [facility] Saline Lock Urinary Cath still in place: No Assessment/Plan Chief Complaint/Hosp Course 1. Right knee osteoarthritis, status post total right knee replacement. Continue physical therapy and pain management. 2. Essential hypertension. Blood pressure currently well controlled. Continue antihypertensives. 3. Normocytic normochromic anemia. Etiology unclear. H and H stable. 4. Obesity with a BMI of 29.4 kilograms per meter square. Weight reduction advised. 5. Fluid, electrolytes and nutrition. Regular diet as tolerated. 6. Deep venous thrombosis prophylaxis. On aspirin as per orthopedic surgery. 7. Gastrointestinal prophylaxis. On proton pump inhibitors. PLAN: The patient is medically stable to be discharged. Please increase the patient's home dose of losartan to 50 p.o. twice daily. The case was discussed with Dr. Brito. Thank you for the consult. Problems: Subjective 24 Hr Interval Summary Free Text/Dictation Right knee pain well controlled. The patient's a blood pressure has been fluctuating. Exam/Review of Systems Vital Signs Vitals Vital Signs Date Time Temp Pulse Resp B/P Pulse Ox O2 Delivery O2 Flow Rate FiO2 01/07/17 08:30 98.2 66 19 175/81 97 01/03/17 18:10 Room Air Intake and Output 01/06/17 01/06/17 01/07/17 15:00 23:00 07:00 Intake Total 920 ml 400 ml Output Total 2 ml Balance 918 ml 400 ml Exam GENERAL: This is a slightly overweight female patient lying in bed in no apparent distress. HEENT: Head normocephalic and atraumatic. Eyes: Anicteric sclerae. Conjunctivae clear. ENT: Nasal septum is midline. Oral mucosa is moist. NECK: Supple. No JVD noticed. RESPIRATORY: Bilaterally clear to auscultation. No adventitious breath sounds. No use of accessory muscles of respiration. CARDIAC: Regular rate and rhythm. No murmurs. ABDOMEN: Soft, nontender and nondistended. Bowel sounds positive in all 4 quadrants. GENITOURINARY: Deferred. EXTREMITIES: No cyanosis, no clubbing. Right knee incision is clean, dry and intact without any redness or drainage. No edema. Peripheral pulses are palpable. NEUROLOGIC: The patient is awake, alert and oriented. Cranial nerves are grossly intact. Results Result Diagram: 01/07/17 0450 01/05/17 0429 Results 24 hrs Laboratory Tests Test 01/07/17 04:50 Basophils # 0.0 Basophils % 0.3 Blood Morphology Comment Eosinophils # 0.1 Eosinophils % 1.6 Hematocrit 31.4 L Hemoglobin 10.9 L Lymphocytes # 1.6 Lymphocytes % 20.6 Mean Corpuscular Hemoglobin 30.5 Mean Corpuscular Hemoglobin Concent 34.6 Mean Corpuscular Volume 88.1 Mean Platelet Volume 6.8 L Monocytes # 0.5 Monocytes % 6.9 Neutrophils # 5.4 Neutrophils % 70.6 Nucleated Red Blood Cells # 0.0 Nucleated Red Blood Cells % 0.0 Platelet Count 234 # Red Blood Count 3.56 L Red Cell Distribution Width 14.0 White Blood Count 7.7 Medications Medications Current Medications Oxycodone HCl (Roxicodone) 20 mg Q3H PRN PO PAIN LEVEL 8-10; Start 01/03/17 at 13:00 Oxycodone HCl (Roxicodone) 10 mg Q3H PRN PO PAIN LEVEL 4-7; Start 01/03/17 at 13:00 Oxycodone HCl (Roxicodone) 5 mg Q3H PRN PO PAIN LEVEL 1-3 Last administered on 01/06/17 21:52; Admin Dose 5 MG; Start 01/03/17 at 13:00 Zolpidem Tartrate (Ambien) 5 mg HS PRN PO INSOMNIA Last administered on 23:51; Admin Dose 5 MG; Start 01/03/17 at 13:00 Miscellaneous Information (Note) NOTE XX ; Start 01/03/17 at 13:00 Aspirin (Ecotrin) 325 mg BID PO Last administered on 01/07/17 08:47; Admin Dose 325 MG; Start 01/04/17 at 09:00 Celecoxib (Celebrex) 200 mg BID PO Last administered on 01/07/17 08:46; Admin Dose 200 MG; Start 01/04/17 at 09:00 Pantoprazole (Protonix Tab) 40 mg DAILY@06 PO Last administered on 01/07/17 06 :11; Admin Dose 40 MG; Start 01/05/17 at 06:00 Docusate Sodium/ Ferrous Fumarate (Dorian-Sequels) 1 tab BID PO Last administered on 01/07/17 08:47; Admin Dose 1 TAB; Start 01/04/17 at 09:00 Simethicone (Mylicon) 80 mg TID PRN PO DISTENSION/GAS/BLOATING; Start 01/03/17 at 13:00 Senna/Docusate Sodium (Senokot-S) 2 tab BID PRN PO CONSTIPATION; Start at 13:00 Magnesium Hydroxide (Milk Of Mag) 30 ml HS PRN PO CONSTIPATION Last administered on 01/06/17 05:56; Admin Dose 30 ML; Start 01/03/17 at 13:00 Bisacodyl (Dulcolax Supp) 10 mg DAILY PRN VT CONSTIPATION; Start 01/03/17 at 13 :00 Sodium Biphosphate/ Sodium Phosphate (Fleet Enema) 133 ml DAILY PRN VT CONSTIPATION; Start 01/03/17 at 13:00 Diphenhydramine HCl (Benadryl) 25 mg Q4H PRN IM ITCHING OR RASH; Start at 13:00 Ketorolac Tromethamine (Toradol) 30 mg DAILY@06 PRN INJ ADMINSTER BY SURGEON ONLY; Start 01/04/17 at 06:00; Stop 01/08/17 at 05:59 Bupivacaine HCl/ Epinephrine Bitart (Marcaine 0.25%/ Epi (Sdv) 30 ml) 20 ml DAILY@06 PRN INJ ADMINSTER BY SURGEON ONLY; Start 01/04/17 at 06:00; Stop 01/08 at 05:59 Naloxone HCl (Narcan) 0.2 mg Q2M PRN IV DECREASED REPIRATORY RATE; Start at 13:00 Losartan Potassium (Cozaar) 50 mg BID PO Last administered on 01/07/17 08:47; Admin Dose 50 MG; Start 01/05/17 at 12:00 Hydrochlorothiazide (Hydrochlorothiazide) 12.5 mg DAILY PO Last administered on 01/07/17 08:46; Admin Dose 12.5 MG; Start 01/06/17 at 09:00 AIRAM CUMMINGS NP Jan 07, 2017 10:07
== END 2017-01-07 13:50 | disposition home health service (06) | DRG 470 ==
LOC: REC 05:30 → MS1 15:20
PROC: 0SRC0J9 Replacement of Right Knee Joint with Synthetic Substitute, Cemented, Open Approach (ICD-10-PCS; principal; 2017-01-03 08:00)
DX: M17.11 Unilateral primary osteoarthritis, right knee (principal); D64.9 Anemia, unspecified; I10 Essential (primary) hypertension; R26.2 Difficulty in walking, not elsewhere classified; E66.9 Obesity, unspecified; Z68.29 Body mass index [BMI] 29.0-29.9, adult
CPT/HCPCS: 73560; 73562; 80048; 81001; 81003; 85025; 86850; 86900; 86901; 86920; 87086; 88304; 88311; 97110; 97116; 97163; 97166; 97530; C1713; C1776; J0131; J0360; J0690; J0735; J1100; J1885; J2175; J2250; J2274; J2405; J2795; J3301; J3370; J7120; J7121

== ENCOUNTER → 2017-01-23 | Outpatient (CLI) | payer OTHER ==
[~2017-01-23] MED LIST changes: +HYDR12.58 PO; -KNEE PAIN COCKTAIL VANCO INJ SCH; +LOSA50TA6 PO
--- NOTE | 2017-01-23 16:20 | PN ---
Date/Time of Note Date/Time of Note DATE: 01/23/17 TIME: 16:15 Outpatient Progress Note Chief Complaint 3 week postop visit status post right total knee replacement. HPI 76-year-old female presents today for 3 week postop visit status post right total knee replacement performed on 01/03/2017. Since discharge from the hospital, patient denies any pain at rest, sitting or standing. When patient is ambulating however, she reports pain at an 8/10 on the pain scale. Denies any falls. Patient does feel that she is continuing to progress in regards to functionality of the knee but continues with pain with ambulation that is generalized. No increased bruising. Denies any discharge presentation or any signs of infection to the wound. Overall, patient is very happy status post surgery. Continues taking pain medications as needed. Currently performing at home physical therapy. No falls since she was last seen. Uses front-wheeled walker for assisted ambulation. Denies any calf pain, shortness of breath or chest pain/tightness. Review of Systems Const: No Fever, no chills, no Wt. loss, no Fatigue, normal appetite, no diaphoresis. Physical Exam Height is 4 foot 10 inches, weight is 135 pounds General Appearance: well-developed, well-nourished, in no acute distress. Right knee: [place] are intact. Surgical wound is clean dry and intact and healing well. No tenderness to palpation. Patient is able to extend with about 5-10 lag from full extension actively. Active flexion is up to 90. No pain with range of motion. Normal sensory examination to light touch. No calf pain/negative Homans sign. Assisted ambulation with front wheeled walker. Varus deformity on inspection. 5/5 strength on resistance with flexion and extension. Allergies Coded Allergies: No Known Allergy (Unverified , 01/03/17) Assessment/Plan * Staple removal performed today. Dress change performed today. * Continue DVT prophylaxis with aspirin 325 mg twice daily * Pain medications as needed. Advised to take pain pill prior to initiation of physical therapy. * Patient is in possession of outpatient physical therapy prescription and advised to initiate outpatient physical therapy for improved functionality and decrease pain complaints. * At home physical therapy exercises discussed and displayed to patient today. * Follow-up in 3 weeks for repeat evaluation and x-ray. Dr. De León has also seen this patient. He agrees with plan. Medications Home Meds Active Scripts Losartan Potassium* (Losartan Potassium*) 50 Mg Tablet, 50 MG PO BID for 30 Days , TAB Prov:AIRAM CUMMINGS NP 01/07/17 Reported Medications Hydrochlorothiazide* (Hydrochlorothiazide*) 12.5 Mg Tablet, 12.5 MG PO DAILY, # 30 TAB 01/03/17 TAVARES MITCHELL PA-C Jan 23, 2017 16:20
== END | disposition home or self-care (01) ==
LOC: HKI 14:45
DX: Z47.1 Aftercare following joint replacement surgery (principal); Z96.651 Presence of right artificial knee joint

== ENCOUNTER → 2017-01-28 | Outpatient (CLI) | payer OTHER ==
--- NOTE | 2017-01-28 15:13 | RADRPT ---
AMENDMENT: 01/28/2017 3:50:47 PM Сергей Barr MD Call report: A call report of the findings was made to Dr. De León on 01/28/2017 at 1513 hours. PROCEDURE: Right knee radiographs. CLINICAL INDICATION: Right knee pain. Postop. TECHNIQUE: Three views. Weight bearing. Frontal, lateral, and patellar view. COMPARISON: 01/03/2017. FINDINGS: There is an acute comminuted supracondylar fracture of the distal femur with associated varus deform ity. There is no other fracture and there is no dislocation. There is diffuse soft tissue swelling surrounding the fracture. Anterior skin flor and surgical drains have been removed. There is a total right knee arthroplasty which appears satisfactory. There is no lytic or blastic lesion. There is no joint effusion. IMPRESSION: 1. Acute comminuted supracondylar fracture of the distal femur with associated varus deformity and overlying soft tissue swelling. 2. Anterior skin flor and surgical drains removed when compared with 01/03/2017. 3. Otherwise satisfactory postoperative appearance of the right knee. RPTAT: QQ .Сергей Barr MD, MD Date Time Electronically viewed and signed by .Сергей Barr MD, on 01/28/2017 15:50 .R/
--- NOTE | 2017-01-28 18:03 | HKNOTE ---
DATE OF SERVICE: 01/28/2017 MAIN COMPLAINT: Pain in the right knee. HISTORY OF MAIN COMPLAINT: The patient is a 76-year-old female who underwent a right total knee rep lacement on 01/03/2017. She did extremely well postoperatively. She was seen in the office on 07/2017. She was able to walk using a walker and did not have very much pain in the knee. The stapl es were removed. Sometime over the weekend, patient's pain increased quite markedly and she was no longer able to bear weight on the leg. She is using a walker and has to put all her weight on her h ands. She comes in with her daughter and son-in-law. PRESENT COMPLAINTS: Pain in the right knee, unable to put weight on the leg. PHYSICAL EXAMINATION: The knee has as a valgus alignment. Wound is healing well without any sign o f infection. Patient's temperature is 97.5. Blood pressure 110/60. IMAGING: Plain x-rays of the right knee obtained today were reviewed. These show that the patient sustained a supracondylar fracture with the knee within the profile of the femoral component. There is a valgus displacement of the alignment. MANAGEMENT: The patient will require revision of the femoral component to either a distal femoral r eplacement or to a stemmed type of implant if there is sufficient bone left after we remove the femo ral component. The surgery and some of the major possible complications were discussed with the family and the rhianna ent. She is currently on aspirin. She was advised to stop taking the aspirin. She will be seen by Dr. Dru Serra ([phone]) for a medical evaluation and clearance. She also needs to see Dr. Juan A Dennison ([phone]) . Surgery will be scheduled as soon as it can be authorized. Patient belongs to [employer]. Their authorization number is ([phone]), fax [phone]. Her daughter, Cece, will be called as the point person for organizing and getting clearance and perm ission from the [employer]. Cece's phone number is [phone]. Dictated By: LEAH BERNAL/CITLALLI Conf#: [id number] [facility]#: [id number]
== END | disposition home or self-care (01) ==
LOC: HKI 13:49
DX: M25.561 Pain in right knee (principal); Z96.651 Presence of right artificial knee joint

== ENCOUNTER 2017-02-02 16:48 | Inpatient (IN) | payer OTHER ==
[~2017-02-02] VITALS: Ht 149.9 cm; Wt 65.1 kg
[2017-02-02] MEDS: traMADol 50 MG TAB PO SCH ×2 (12:00→18:00)
[2017-02-02 19:00] VITALS: BP 148/74; RESP 20
[2017-02-02] MEDS ORDERED: NACL 0.9% 3 ML SYG IV SCH (20:30)
[2017-02-02] MEDS ORDERED: HYDROmorphONE 1 MG/ML SYG IV PRN (20:30)
[2017-02-02] MEDS ORDERED: NA PHOSPHATE/BIPHOS 133 ML ENEMA PR PRN (20:30)
[2017-02-02] MEDS ORDERED: MAGNESIUM HYDROXIDE 30ML CUP PO PRN (20:30)
[2017-02-02] MEDS ORDERED: ONDANSETRON 4 MG INJ IV PRN (20:30)
[2017-02-02] MEDS ORDERED: DIPHENHYDRAMINE 25 MG CAP PO PRN (20:30)
[2017-02-02] MEDS ORDERED: oxyCODONE 5 MG TAB PO PRN ×2 (20:30)
[2017-02-02] MEDS ORDERED: BISACODYL 10 MG SUPP PR PRN (20:30)
[2017-02-02] MEDS ORDERED: hydrALAzine 20 MG INJ IV PRN (20:30)
--- NOTE | 2017-02-02 21:07 | RADRPT ---
PROCEDURE: XR Chest. CLINICAL INDICATION: Preoperative. TECHNIQUE: Single frontal view. COMPARISON: None. FINDINGS: The lungs are clear. The heart size is normal. There is calcification in the aorta consistent with atherosclerosis. There is no pleural effusion. There is no pneumothorax. IMPRESSION: 1. Atherosclerosis. 2. Clear lungs. RPTAT: QQ .Сергей Barr MD, MD Date Time Electronically viewed and signed by .Сергей Barr MD, MD on 02/02/2017 21:07 .R/
[2017-02-02] MEDS: DOCUSATE SODIUM 100 MG CAP PO SCH (21:48)
[2017-02-03] MEDS: traMADol 50 MG TAB PO SCH ×5 (00:21→23:57)
--- NOTE | 2017-02-03 01:35 | RADRPT ---
PROCEDURE: XR Right Hip. CLINICAL INDICATION: Preoperative planing for right knee arthroplasty TECHNIQUE: Single AP view of the right hip COMPARISON: None. FINDINGS: Demineralization limits evaluation of fine osseous detail. The lateral inferior margin of the right femoral head is not well seen, and this finding is otherwise nonspecific. No fracture or osseous lesion is identified. There are no significant degenerative changes in the hip. The soft tissues are unremarkable. IMPRESSION: Unremarkable right hip. RPTAT: [facility] Physician Jose Date Time Electronically viewed and signed by Physician Jose on 02/03/2017 01:35 RS/
[2017-02-03 01:53] VITALS: Ht 149.9 cm; Wt 65.1 kg
[2017-02-03 01:56] LABS: ADD UMIC YES; URINE BILIRUBIN (Dip) NEGATIVE (NEGATIVE); URINE BLOOD (Dip) 1+ (NEGATIVE); URINE COLOR LT. YELLOW (YELLOW); URINE GLUCOSE (Dip) NEGATIVE (NEGATIVE); URINE KETONES (Dip) NEGATIVE (NEGATIVE); URINE LEUKOCYTE ESTERASE (Dip) NEGATIVE (NEGATIVE); URINE NITRITE (Dip) NEGATIVE (NEGATIVE); URINE TOTAL PROTEIN (Dip) NEGATIVE (NEGATIVE); URINE UROBILINOGEN (Dip) 0.2 E.U./dL (0.1-1.0)
--- NOTE | 2017-02-03 01:57 | RADRPT ---
PROCEDURE: Right femur x-ray CLINICAL INDICATION: Assess total right knee arthroplasty. TECHNIQUE: AP and lateral views of the femur were obtained. COMPARISON: Right knee series dated 01/28/2017. FINDINGS: Demineralization limits evaluation of fine osseous detail. Lucency seen at the medial aspect of the right femoral head, otherwise nonspecific. Total right knee arthroplasty is present. Again seen is a fracture of the distal femoral metaphysis and mild varus angulation at the proximal prosthetic element with respect to the distal shaft of the femur. This is seen best on the AP view and there is impaction of the fracture fragment on the dist al femoral metadiaphysis. This fracture malalignment of the prosthetic element was identified on plain film examination dated 01/28/2007, and there is now mildly improved anatomic alignment of the proximal prosthetic element o leonard the interval. Otherwise, remaining arthroplasty is without evident hardware complication on this limited series. Otherwise, there is no evident acute fracture or dislocation is seen. There are no significant degenerative changes. Soft tissues are substantially unremarkable. IMPRESSION: 1. Again seen is a fracture of the distal right femoral metaphysis with varus angulation at the pro ximal prosthetic element with respect to the distal shaft of the femur. 2. There is improved anatomic alignment of the proximal prosthetic over the interval since 01/29/20 17. RPTAT: [facility] Physician Jose Date Time Electronically viewed and signed by Physician Jose on 02/03/2017 01:56 RS/
--- NOTE | 2017-02-03 01:59 | RADRPT ---
PROCEDURE: XR Knee. CLINICAL INDICATION: Right knee arthroplasty with fracture of the distal right femoral metaphysis. TECHNIQUE: 2 views of the right knee were obtained. The images reviewed on a PACS workstation. COMPARISON: 01/28/2017. FINDINGS: Fracture at the distal femoral metaphysis with mild varus angulation of the proximal right knee pros thetic element. This is improved in anatomic alignment over interval since examination dated 2016. Please see today's right femur series and report. IMPRESSION: Improved anatomic alignment of proximal prosthetic element with fracture of the distal right femoral metaphysis. RPTAT: [facility] Physician Jose Date Time Electronically viewed and signed by Physician Jose on 02/03/2017 01:58 RS/
[2017-02-03 02:28] LABS: BACTERIA,URINE OCCASIONAL; SQUAMOUS EPITHELIAL CELL,UR MODERATE
[2017-02-03 05:06] LABS: ADD SCAN DIFF NO
[2017-02-03] MEDS: PANTOPRAZOLE (EC) 40 MG TAB PO SCH ×2 (05:12→18:27)
--- NOTE | 2017-02-03 05:12 | CONS ---
DATE OF ADMISSION: 02/02/2017 DATE OF CONSULTATION: 02/02/2017 The patient was seen and examined by me on 02/02/2017 at 11:45 p.m. IDENTIFICATION: A 76-year-old female. CHIEF COMPLAINT: Right knee pain and this is a medical management request from the orthopedic surge ry team. HISTORY OF PRESENT ILLNESS: A 76-year-old female with past medical history of hypertension, right t otal knee replacement back in December 2016 who has been having worsening right knee pain over the l ast few days. Apparently, she went to the orthopedic surgery doctor's in the clinic a few days ago and had x-rays performed that showed a sustained an acute comminuted supracondylar fracture of the d istal femur with associated varus deformity and an overlying soft tissue swelling in the femur, and knee x-rays today showed fracture again seen of the distal right femoral metaphysis with varus angul ation of the proximal prosthetic element with respect to the distal shaft of the femur, and the rhianna ent was told to come in today and has been admitted by the orthopedic surgery team for possible revi tom surgery to be done in the next 24 hours. The medicine team was asked to help with management i ncluding blood pressure management. PAST MEDICAL HISTORY: As stated above. ALLERGIES: NO KNOWN DRUG ALLERGIES. MEDICATIONS AT HOME: 1. Losartan 50 mg b.i.d. 2. Hydrochlorothiazide 12.5 mg daily. PAST SURGICAL HISTORY: Again, she had the right total knee replacement done in December 2016. SOCIAL HISTORY: Negative for smoking, drinking, or IV drug abuse. FAMILY HISTORY: Positive for hypertension. PHYSICAL EXAMINATION: VITAL SIGNS: Show T-max of 98.4, pulse 75, respirations 20, blood pressure 148/74, saturating at 98 % on room air. GENERAL: The patient lying in bed, no acute distress. HEENT: Pupils equal, round, react to light. Extraocular muscles intact. NECK: Supple, no thyromegaly. LUNGS: Clear to auscultation bilaterally. CARDIOVASCULAR: S1, S2 heard. No rubs or gallops. ABDOMEN: Soft, nontender, nondistended. Normal bowel sounds. No rebound or guarding. MUSCULOSKELETAL: Decreased range of motion right lower extremity. NEUROLOGIC: No focal deficits. LABORATORY DATA: There is no new CBC or basic metabolic panel for today. ASSESSMENT AND PLAN: A 76-year-old female with new right knee fracture after having a right total k nee replacement in 12/2016 with history of hypertension, awaiting possible revision surgery. 1. Right knee fracture. See above for details of the type of fracture. Again, continue medical ma nagement per orthopedic surgery team. Continue pain control medications and labs. 2. Hypertension. Will continue the patient's hydrochlorothiazide. She is also on hydralazine p.r. n. for systolic greater than 160. 3. History of arthritis. Continue current medications. We will continue to follow along with you. Dictated By: CHANO ALAMO/CITLALLI Conf#: [id number] DID#: [id number]
[2017-02-03 05:18] LABS: BASOPHILS % 0.7 % (0.0-2.0); EOSINOPHILS # 0.4 10^3/ul (0.0-0.5); EOSINOPHILS % 6.5 % (0.0-7.0); HEMATOCRIT 26.7 % (37.0-47.0); HEMOGLOBIN 8.4 g/dl (12.0-16.0); LYMPHOCYTES # 1.5 10^3/ul (0.8-2.9); LYMPHOCYTES % 24.2 % (15.0-51.0); MEAN CORPUSCULAR HEMOGLOBIN 27.5 pg (29.0-33.0); MEAN CORPUSCULAR HGB CONC 31.5 g/dl (32.0-37.0); MEAN CORPUSCULAR VOLUME 87.5 fl (82.0-101.0); MEAN PLATELET VOLUME 8.3 fl (7.4-10.4); MONOCYTE # 0.4 10^3/ul (0.3-0.9); MONOCYTES % 7.3 % (0.0-11.0); NEUTROPHIL # 3.7 10^3/ul (1.6-7.5); NEUTROPHILS % 60.8 % (39.0-77.0); PLATELET COUNT 260 10^3/UL (140-415); RED BLOOD COUNT 3.05 10^6/ul (4.20-5.40); RED CELL DISTRIBUTION WIDTH 14.3 % (11.5-14.5)
[2017-02-03 05:31] LABS: POTASSIUM 3.7 mmol/L (3.5-5.1)
[2017-02-03 05:34] LABS: CREATININE 0.64 mg/dl (0.44-1.00)
[2017-02-03 05:35] LABS: CALCIUM 8.6 mg/dl (8.4-10.2)
[2017-02-03 05:41] LABS: INR 1.16; PROTIME 14.8 Sec (12.2-14.2); PT RATIO 1.2
[2017-02-03 07:52] VITALS: BP 149/72; RESP 18
[2017-02-03] MEDS: HYDROCHLOROTHIAZIDE 12.5 MG CAP PO SCH (08:40)
[2017-02-03] MEDS: DOCUSATE SODIUM 100 MG CAP PO SCH ×2 (08:40→21:00)
--- NOTE | 2017-02-03 10:45 | RADRPT ---
PROCEDURE: US DVT. CLINICAL INDICATION: Evaluate bilateral lower extremities for deep venous thrombosis.. TECHNIQUE: Multiple longitudinal and transverse images of the bilateral lower extremity veins were obtained with rodriguez scale and color Doppler imaging. 2D grayscale measurements with compression, co elif Doppler flow, and augmentation was performed. The calf veins were interrogated as well. COMPARISON: No prior studies are available for comparison. FINDINGS: The bilateral common femoral, superficial femoral and popliteal veins are normally compressible thro ughout. Color flow demonstrates normal filling of the vessel. Normal waveforms are visualized and there is normal response to augmentation. There is a popliteal cyst visualized on the left. IMPRESSION: 1. No evidence of a deep vein thrombosis involving either lower extremity. 2. Left sided popliteal cyst. RPTAT: [facility] Physician Janki Date Time Electronically viewed and signed by Physician Janki on 02/03/2017 10:45 /
[2017-02-03] MEDS ORDERED: DIPHENHYDRAMINE 25 MG CAP PO ONE (11:00)
--- NOTE | 2017-02-03 11:03 | PN ---
Date/Time of Note Date/Time of Note DATE: 02/03/17 TIME: 10:59 Assessment/Plan VTE Prophylaxis VTE Prophylaxis Intervention: other Assessment/Plan Chief Complaint/Hosp Course ASSESSMENT AND PLAN: 1. Right knee fracture. new right knee fracture after having a right total knee replacement in 12/2016 , awaiting possible revision surgery.continue medical management per orthopedic surgery team. 2. Hypertension. Will continue the patient's hydrochlorothiazide. She is also on hydralazine p.r.n. for systolic greater than 160. 3. History of arthritis. Continue current medications. 4. Anemia. Plan to transfuse 1 unit of packed red blood cells prior to surgery We will continue to follow along with you. Problems: Subjective 24 Hr Interval Summary Free Text/Dictation Patient continues to complain of having right knee pain Tolerating oral intake Denies any chest pain or shortness of breath Exam/Review of Systems Vital Signs Vitals Vital Signs Date Time Temp Pulse Resp B/P Pulse Ox O2 Delivery O2 Flow Rate FiO2 02/03/17 07:52 97.9 82 18 149/72 94 Intake and Output 02/02/17 02/02/17 02/03/17 15:00 23:00 07:00 Intake Total 400 ml Output Total 350 ml Balance 50 ml Exam General: The patient is well-developed, Not in acute distress. HEENT: Atraumatic, normocephalic. The pupils are equal and round . Neck: Supple with full range of motion. Chest: Normal expansion of the thorax during inspiration Lungs: Clear to auscultation bilaterally Heart: Normal S1-S2, Regular rhythm and rate. Abdomen: Soft , nontender, nondistended , bowel sounds are present. Extremities: Right knee surgical site is dry and clean, decreased range of motion in right knee secondary to pain, no edema no cyanosis Neurologic: Normal mental status,The patient is awake, alert and oriented . Results Result Diagram: 02/03/17 0432 02/03/17 0432 Results 24 hrs Laboratory Tests Test 02/03/17 04:32 Activated Partial Thromboplast Time 29.5 Anion Gap 12 Basophils # 0.0 Basophils % 0.7 Blood Urea Nitrogen 14 Calcium Level 8.6 Carbon Dioxide Level 29 Chloride Level 105 Creatinine 0.64 Eosinophils # 0.4 Eosinophils % 6.5 Glucose Level 93 Hematocrit 26.7 L Hemoglobin 8.4 #L INR International Normalized Ratio 1.16 Lymphocytes # 1.5 Lymphocytes % 24.2 Mean Corpuscular Hemoglobin 27.5 L Mean Corpuscular Hemoglobin Concent 31.5 L Mean Corpuscular Volume 87.5 Mean Platelet Volume 8.3 # Monocytes # 0.4 Monocytes % 7.3 Neutrophils # 3.7 Neutrophils % 60.8 Nucleated Red Blood Cells # 0.0 Nucleated Red Blood Cells % 0.0 Platelet Count 260 Potassium Level 3.7 Prothrombin Time 14.8 H Prothrombin Time Ratio 1.2 Red Blood Count 3.05 L Red Cell Distribution Width 14.3 Sodium Level 142 White Blood Count 6.0 # Medications Medications Current Medications Hydralazine HCl (Apresoline) 10 mg Q6H PRN IV ELEVATED BLOOD PRESSURE; Start at 20:30 Tramadol HCl (Ultram) 50 mg Q6 PO Last administered on 02/03/17 05:12; Admin Dose 50 MG; Start 02/02/17 at 12:00; Stop 02/05/17 at 11:59 Oxycodone HCl (Roxicodone) 5 mg Q4H PRN PO PAIN LEVEL 1-3; Start 02/02/17 at 20 :30 Oxycodone HCl (Roxicodone) 10 mg Q4H PRN PO PAIN LEVEL 4-7; Start 02/02/17 at 20:30 Hydromorphone HCl (Dilaudid) 1 mg Q3H PRN IV PAIN LEVEL 8-10; Start 02/02/17 at 20:30 Ondansetron HCl (Zofran Inj) 4 mg Q6H PRN IV NAUSEA AND/OR VOMITING; Start at 20:30 Bisacodyl (Dulcolax Supp) 10 mg Q12H PRN [place] CONSTIPATION; Start 02/02/17 at 20: 30 Magnesium Hydroxide (Milk Of Mag) 30 ml BID PRN PO CONSTIPATION; Start at 20:30 Sodium Biphosphate/ Sodium Phosphate (Fleet Enema) 133 ml DAILY PRN [place] CONSTIPATION; Start 02/02/17 at 20:30 Docusate Sodium (Colace) 100 mg BID PO Last administered on 02/03/17 08:40; Admin Dose 100 MG; Start 02/02/17 at 21:00 Diphenhydramine HCl (Benadryl) 25 mg Q6H PRN PO PRURITUS; Start 02/02/17 at 20: 30 Pantoprazole (Protonix Tab) 40 mg BID@06,18 PO Last administered on 02/03/17 05:12; Admin Dose 40 MG; Start 02/03/17 at 06:00 Hydrochlorothiazide 12.5 mg 12.5 mg DAILY PO Last administered on 02/03/17 08: 40; Admin Dose 12.5 MG; Start 02/03/17 at 09:00 Tranexamic Acid 650 mg/Sodium Chloride 106.5 ml @ 200 mls/hr PRE-OP ONCE IVPB ; Start 02/04/17 at 17:00; Stop 02/04/17 at 17:31 Tranexamic Acid 650 mg/Sodium Chloride 106.5 ml @ 200 mls/hr INTRAOP ONCE IVPB ; Start 02/03/17 at 19:00; Stop 02/03/17 at 19:31 Cefazolin Sodium/ Dextrose 50 ml @ 100 mls/hr PREOP IVPB ; Start 02/04/17 at 17 :00; Stop 02/04/17 at 20:00 Lactated Ringer's (Lr) 1,000 ml @ 100 mls/hr Q10H IV ; Start 02/04/17 at 16:00 Oxycodone HCl (Oxycontin) 10 mg PRE-OP ONCE PO ; Start 02/04/17 at 16:00; Stop 02/04/17 at 16:01 Pregabalin (Lyrica) 300 mg PRE-OP ONCE PO ; Start 02/04/17 at 16:00; Stop at 16:01 Celecoxib (Celebrex) 400 mg PRE-OP ONCE PO ; Start 02/04/17 at 16:00; Stop 02/04 at 16:01 Tramadol HCl 50 mg PRE-OP ONCE PO ; Start 02/04/17 at 16:00; Stop 02/04/17 at 16 :01 Bupivacaine HCl/ Morphine Sulfate/ Epinephrine/ Ketorolac Tromethamine/ Clonidine/Sodium Chloride/ Vancomycin HCl (Marcaine 0.5% (Sdv)/Duramorph/ EPINEPHrine/ Toradol/Duraclon/ NS/Vancocin) INTRA-OP ONCE IRR ; Start 02/04/17 at 16:00; Stop 02/04/17 at 16:01 Bupivacaine Liposome (Exparel 266 Mg/ 20 ml Vial) 266 mg INTRA-OP ONCE INFIL ; Start 02/04/17 at 16:00; Stop 02/04/17 at 16:01 Miscellaneous Information 1 ea NOTE XX ; Start 02/04/17 at 10:30; Stop 02/08/17 at 10:29 RAUL NAGEL MD Feb 03, 2017 11:03
--- NOTE | 2017-02-03 11:58 | CONS ---
DATE OF ADMISSION: 02/02/2017 DATE OF CONSULTATION: REASON FOR CONSULTATION: Right distal femur periprosthetic fracture around a total knee arthroplasty. HISTORY OF PRESENT ILLNESS: The patient is a 76-year-old woman who underwent a right total knee arthroplasty by Dr. Crawford about 4 weeks ago. She has had worsening pain in the knee with inability to bear weight on the right lower extremity. X-rays were obtained last week which showed a comminuted displaced right distal femoral fracture just above the implant of the femoral component. There was no trauma. The patient reports that she had increasing pain over the course of the week prior to her coming to see Dr. Crawford and the x-rays being obtained. She has been admitted for further evaluation and management. She denies any fevers or chills or wound drainage. She was on aspirin, but this has been held. She is accompanied by her daughter and son-in-law, who were at her bedside. PAST MEDICAL HISTORY: Hypertension. PAST SURGICAL HISTORY: Right total knee arthroplasty. MEDICATIONS AT HOME: 1. Losartan 50 mg p.o. b.i.d. 2. Hydrochlorothiazide 12.5 mg p.o. b.i.d. ALLERGIES: NO KNOWN DRUG ALLERGIES. SOCIAL HISTORY: The patient does not smoke or drink. FAMILY HISTORY: Noncontributory. REVIEW OF SYSTEMS: GENERAL/CONSTITUTIONAL: Negative for recent fevers, chills, decreased appetite , fatigue, or unexplained weight loss. EYES/EARS/NOSE/MOUTH/THROAT: Negative for headaches, double vision, tearing, nose bleeding, colds, obstruction, discharge, dental difficulties, gingival bleeding, dentures, neck stiffness, pain, tenderness, or masses in thyroid or other areas. CARDIOVASCULAR: Negative for chest pain, palpitations, irregular heartbeat, syncope, dyspnea on exertion, orthopnea, nocturnal paroxysmal dyspnea. History of hypertension. RESPIRATORY: Negative for shortness of breath, wheezing, stridor, hemoptysis, tuberculosis, fever, or night sweats. GASTROINTESTINAL: Negative for dysphagia, abdominal pain, heartburn, nausea, vomiting, hematemesis, jaundice, constipation, diarrhea, abnormal stools (joselin- colored, tarry, bloody, greasy, foul-smelling), or bright red blood per rectum. GENITOURINARY: Negative for urgency, frequency, dysuria, nocturia, hematuria, stones, infections, nephritis, hesitancy, change in size of stream, dribbling, acute retention, or incontinence. MUSCULOSKELETAL: Negative for pain, swelling, redness or heat of muscles or joints, limitation of motion, muscular weakness, atrophy, or cramps. NEUROLOGIC/PSYCHIATRIC: Negative for convulsions, paralyses, tremor, incoordination, paresthesias, difficulties with memory or speech, sensory or motor disturbances, muscular coordination (ataxia, tremor), emotional problems, anxiety, depression, previous psychiatric care, unusual perceptions, or hallucinations. HEMATOLOGIC: Negative for anemia, bleeding tendency, previous transfusions and reactions, or Rh incompatibility. ENDOCRINE: Negative for polydipsia, polyuria, hormone therapy, or intolerance to heat or cold. PHYSICAL EXAMINATION: VITAL SIGNS: Temperature 97.9, blood pressure 149/72, pulse 82, respiratory rate 94. GENERAL APPEARANCE: Well-developed, well-nourished female in no acute distress. ORIENTATION: Alert and oriented to person, place, and time. HEENT: Normocephalic, atraumatic, sclerae anicteric, no nasal discharge, oropharynx clear, dentition is good. SKIN: Normal color, texture, and turgor. No rashes noted throughout the trunk, bilateral upper extremities, and bilateral lower extremities. NECK: Supple, nontender, without lymphadenopathy. No thyromegaly, no masses. CARDIAC: Regular rate and rhythm. LUNGS: Clear to auscultation bilaterally, with symmetric chest rise. ABDOMEN: Soft, nontender, nondistended. MUSCULOSKELETAL EXAMINATION: She is lying on the [facility] with the right lower extremity demonstrating a slight varus deformity at the knee. There is varus alignment to the left knee as well, but not as pronounced. On the right knee, there is a midline incision that has healed well with no redness or drainage. There is no fluctuance. Attempted passive range of motion of the right knee is difficult secondary to pain. There is some varus valgus motion with stress testing of the distal femur. The compartments of the thigh and calf are soft. She has no pain in the right or left hip with log rolling. The left knee has no irritability. There is no pain with passive range of motion of the left knee. NEUROVASCULAR EXAMINATION OF THE LOWER EXTREMITIES: Motor strength is 5/5 in the quadriceps, tibialis anterior, extensor hallucis longus, gastroc-soleus, and peroneals bilaterally. Sensation is intact to light touch throughout both lower extremities. There are 2+ palpable dorsalis pedis and posterior tibial pulses, with capillary refill less than 2 seconds in all 5 digits bilaterally. There is no distal edema. IMAGING: X-rays of the right knee show a displaced comminuted fracture of the distal femur just above the femoral component. The tibial component appears intact, it is in slight varus. There are 2 Mitek anchors along the medial tibia. There are no fractures around the tibial component. There is diffuse osteopenia present. X-rays of the hips show well-preserved joint space and no significant degenerative changes. LABORATORY DATA: Reveal a white blood cell count of 6.0, hematocrit 26.7, platelet count 260, BUN 14, creatinine 0.64. INR 1.16, PTT 29.5. DAPHNIE is negative for signs of infection. ASSESSMENT AND PLAN: Displaced comminuted right supracondylar femur fracture around a right total knee arthroplasty. DISCUSSION: The patient has a very low periprosthetic fracture around a total knee arthroplasty that was done 4 weeks ago. This will require surgical intervention with a revision using a distal femoral replacement. Given that the fracture is quite low, I do not think this would be amenable to open reduction internal fixation with either a retrograde nail or a locking plate. My feeling is that this would have a high risk of failure. I think given her older age and activity level, the best option would be to proceed with revision using a distal femoral replacement as this will allow her to be weightbearing as tolerated immediately. I had a lengthy discussion with the patient and her family about the nature of the surgery and the typical recovery course and what to expect from a functional standpoint. I explained the risks of surgery to include but not be limited to bleeding and possible need for blood transfusion, infection, pain, stiffness, neurovascular injury with possible numbness, weakness, and/or paralysis anywhere from the knee down to the toes, fracture, instability, dislocation, leg length inequality, wear and/or loosening of the prosthesis, need for revision at a later date, wound healing problems, blood clots, pulmonary embolism, and anesthetic complications such as heart attack, stroke, GI bleed, pneumonia and/or . Ample time was allowed for the patient to ask questions, all of which were addressed and answered. She understood the risks involved and wished to proceed. Informed consent was given. We will plan to do the surgery tomorrow afternoon. She will be medically optimized by the hospitalist. I would like to check a venous Doppler of the right lower extremity to rule out DVT given that she has been limited in her ambulatory function over the last week. She will also need transfusion prior to surgery given her hematocrit is at 26.7. We will transfuse her with 2 units of packed red blood cells to increase her hematocrit prior to surgery. She will be made n.p.o. after midnight and typed and crossed and additional 2 units of packed red blood cells. Dictated By: DG HERNÁNDEZ MD EZ/NTS Conf#: [id number] DID#: [id number] CC: CHANO LÓPEZ; LEHA CRAWFORD MD;*EndCC* MTDD
[2017-02-03] MEDS ORDERED: TRANEXAMIC ACID 650 MG in SOD CHLORIDE 0.9% 100 ML IVPB ONE (19:00)
[2017-02-03 19:16] VITALS: BP 128/63; RESP 18
[2017-02-04] VITALS (13 sets, daily range): BP systolic 119–178; BP diastolic 47–74; PULSE 68–80; RESP 11–20
[2017-02-04] MEDS: traMADol 50 MG TAB PO SCH ×5 (05:33→18:00)
[2017-02-04] MEDS: PANTOPRAZOLE (EC) 40 MG TAB PO SCH ×2 (05:34→18:00)
[2017-02-04 05:39] LABS: INR 1.17; PT RATIO 1.2
[2017-02-04 05:47] LABS: ADD SCAN DIFF NO; BASOPHILS % 0.6 % (0.0-2.0); EOSINOPHILS # 0.4 10^3/ul (0.0-0.5); EOSINOPHILS % 6.2 % (0.0-7.0); HEMATOCRIT 36.7 % (37.0-47.0); HEMOGLOBIN 11.8 g/dl (12.0-16.0); LYMPHOCYTES # 1.4 10^3/ul (0.8-2.9); LYMPHOCYTES % 21.5 % (15.0-51.0); MEAN CORPUSCULAR HEMOGLOBIN 26.9 pg (29.0-33.0); MEAN CORPUSCULAR HGB CONC 32.2 g/dl (32.0-37.0); MEAN CORPUSCULAR VOLUME 83.8 fl (82.0-101.0); MEAN PLATELET VOLUME 8.1 fl (7.4-10.4); MONOCYTE # 0.5 10^3/ul (0.3-0.9); MONOCYTES % 7.1 % (0.0-11.0); NEUTROPHIL # 4.3 10^3/ul (1.6-7.5); NEUTROPHILS % 64.1 % (39.0-77.0); PLATELET COUNT 249 10^3/UL (140-415); RED BLOOD COUNT 4.38 10^6/ul (4.20-5.40); RED CELL DISTRIBUTION WIDTH 16.5 % (11.5-14.5); WHITE BLOOD COUNT 6.6 10^3/ul (4.8-10.8)
[2017-02-04 06:15] LABS: POTASSIUM 3.7 mmol/L (3.5-5.1)
[2017-02-04 06:18] LABS: CREATININE 0.69 mg/dl (0.44-1.00)
[2017-02-04 06:19] LABS: CALCIUM 8.6 mg/dl (8.4-10.2)
[2017-02-04] MEDS: HYDROCHLOROTHIAZIDE 12.5 MG CAP PO SCH (08:33)
[2017-02-04] MEDS: DOCUSATE SODIUM 100 MG CAP PO SCH ×3 (08:33→21:00)
[2017-02-04] MEDS ORDERED: EXPAREL NOTE (BUPIVICAINE LIPOSOMAL) XX SCH (10:30)
--- NOTE | 2017-02-04 12:22 | PN ---
Date/Time of Note Date/Time of Note DATE: 02/04/17 TIME: 12:21 Assessment/Plan VTE Prophylaxis VTE Prophylaxis Intervention: other Lines/Catheters IV Catheter Type (from Nrs): Peripheral IV Assessment/Plan Chief Complaint/Hosp Course ASSESSMENT AND PLAN: 1. Right knee fracture. new right knee fracture after having a right total knee replacement in 12/2016 , awaiting possible revision surgery.continue medical management per orthopedic surgery team. 2. Hypertension. Will continue the patient's hydrochlorothiazide. She is also on hydralazine p.r.n. for systolic greater than 160. 3. History of arthritis. Continue current medications. 4. Anemia. Stable, follow up with orthopedic surgeon regarding transfusion We will continue to follow along with you. Problems: Subjective 24 Hr Interval Summary Free Text/Dictation No acute changes Patient continues to complain of having right knee pain No nausea vomiting diarrhea N.p.o. for upcoming procedure Exam/Review of Systems Vital Signs Vitals Vital Signs Date Time Temp Pulse Resp B/P Pulse Ox O2 Delivery O2 Flow Rate FiO2 02/04/17 08:03 97.7 67 18 159/74 95 Intake and Output 02/03/17 02/03/17 02/04/17 15:00 23:00 07:00 Intake Total 830 ml 550 ml Output Total 500 ml 350 ml Balance 330 ml 200 ml Exam General: The patient is moderately overweight, Not in acute distress. HEENT: Atraumatic, normocephalic. The pupils are equal and round . Neck: Supple with full range of motion. Chest: Normal expansion of the thorax during inspiration Lungs: Clear to auscultation bilaterally Heart: Normal S1-S2, Regular rhythm and rate. Abdomen: Soft , nontender, nondistended , bowel sounds are present. Extremities: Right knee tenderness and decreased range of motion secondary to pain, no edema no cyanosis Neurologic: Normal mental status,The patient is awake, alert and oriented . Results Result Diagram: 02/04/17 0447 02/04/17 0447 Results 24 hrs Laboratory Tests Test 02/04/17 04:47 02/04/17 05:00 Anion Gap 12 Basophils # 0.0 Basophils % 0.6 Blood Urea Nitrogen 19 Calcium Level 8.6 Carbon Dioxide Level 28 Chloride Level 103 Creatinine 0.69 Eosinophils # 0.4 Eosinophils % 6.2 Glucose Level 99 Hematocrit 36.7 #L Hemoglobin 11.8 #L Lymphocytes # 1.4 Lymphocytes % 21.5 Mean Corpuscular Hemoglobin 26.9 L Mean Corpuscular Hemoglobin Concent 32.2 Mean Corpuscular Volume 83.8 Mean Platelet Volume 8.1 Monocytes # 0.5 Monocytes % 7.1 Neutrophils # 4.3 Neutrophils % 64.1 Nucleated Red Blood Cells # 0.0 Nucleated Red Blood Cells % 0.0 Platelet Count 249 Potassium Level 3.7 Red Blood Count 4.38 # Red Cell Distribution Width 16.5 H Sodium Level 139 White Blood Count 6.6 INR International Normalized Ratio 1.17 Prothrombin Time 15.0 H Prothrombin Time Ratio 1.2 Medications Medications Current Medications Hydralazine HCl (Apresoline) 10 mg Q6H PRN IV ELEVATED BLOOD PRESSURE; Start at 20:30 Tramadol HCl (Ultram) 50 mg Q6 PO Last administered on 02/04/17 11:46; Admin Dose 50 MG; Start 02/02/17 at 12:00; Stop 02/05/17 at 11:59 Oxycodone HCl (Roxicodone) 5 mg Q4H PRN PO PAIN LEVEL 1-3; Start 02/02/17 at 20 :30 Oxycodone HCl (Roxicodone) 10 mg Q4H PRN PO PAIN LEVEL 4-7; Start 02/02/17 at 20:30 Hydromorphone HCl (Dilaudid) 1 mg Q3H PRN IV PAIN LEVEL 8-10; Start 02/02/17 at 20:30 Ondansetron HCl (Zofran Inj) 4 mg Q6H PRN IV NAUSEA AND/OR VOMITING; Start at 20:30 Bisacodyl (Dulcolax Supp) 10 mg Q12H PRN [place] CONSTIPATION; Start 02/02/17 at 20: 30 Magnesium Hydroxide (Milk Of Mag) 30 ml BID PRN PO CONSTIPATION; Start at 20:30 Sodium Biphosphate/ Sodium Phosphate (Fleet Enema) 133 ml DAILY PRN [place] CONSTIPATION; Start 02/02/17 at 20:30 Docusate Sodium (Colace) 100 mg BID PO Last administered on 02/03/17 21:00; Admin Dose 100 MG; Start 02/02/17 at 21:00 Diphenhydramine HCl (Benadryl) 25 mg Q6H PRN PO PRURITUS; Start 02/02/17 at 20: 30 Pantoprazole (Protonix Tab) 40 mg BID@06,18 PO Last administered on 02/04/17t 05:34; Admin Dose 40 MG; Start 02/03/17 at 06:00 Hydrochlorothiazide 12.5 mg 12.5 mg DAILY PO Last administered on 02/04/17 08: 33; Admin Dose 12.5 MG; Start 02/03/17 at 09:00 Tranexamic Acid 650 mg/Sodium Chloride 106.5 ml @ 200 mls/hr PRE-OP ONCE IVPB ; Start 02/04/17 at 17:00; Stop 02/04/17 at 17:31 Cefazolin Sodium/ Dextrose 50 ml @ 100 mls/hr PREOP IVPB ; Start 02/04/17 at 17 :00; Stop 02/04/17 at 20:00 Lactated Ringer's (Lr) 1,000 ml @ 100 mls/hr Q10H IV ; Start 02/04/17 at 16:00 Oxycodone HCl (Oxycontin) 10 mg PRE-OP ONCE PO ; Start 02/04/17 at 16:00; Stop 02/04/17 at 16:01 Pregabalin (Lyrica) 300 mg PRE-OP ONCE PO ; Start 02/04/17 at 16:00; Stop at 16:01 Celecoxib (Celebrex) 400 mg PRE-OP ONCE PO ; Start 02/04/17 at 16:00; Stop 02/04 at 16:01 Tramadol HCl 50 mg PRE-OP ONCE PO ; Start 02/04/17 at 16:00; Stop 02/04/17 at 16 :01 Bupivacaine HCl/ Morphine Sulfate/ Epinephrine/ Ketorolac Tromethamine/ Clonidine/Sodium Chloride/ Vancomycin HCl (Marcaine 0.5% (Sdv)/Duramorph/ EPINEPHrine/ Toradol/Duraclon/ NS/Vancocin) INTRA-OP ONCE IRR ; Start 02/04/17 at 16:00; Stop 02/04/17 at 16:01 Bupivacaine Liposome (Exparel 266 Mg/ 20 ml Vial) 266 mg INTRA-OP ONCE INFIL ; Start 02/04/17 at 16:00; Stop 02/04/17 at 16:01 Miscellaneous Information 1 ea 1 ea NOTE XX ; Start 02/04/17 at 10:30; Stop at 10:29 Potassium Chloride/Dextrose/ Sod Cl (D5-1/2ns + KCl 20 Meq) 1,000 ml @ 75 mls/ hr [id number] IV ; Start 02/04/17 at 12:30 RAUL NAGEL MD Feb 04, 2017 12:22
[2017-02-04] MEDS: D5W-0.45 NACL + KCL 20 MEQ 1,000 ML IV SCH (12:39)
[2017-02-04] MEDS ORDERED: LACTATED RINGER'S 1,000 ML IV SCH ×2 (16:00→22:32)
[2017-02-04] MEDS ORDERED: BUPIVACAINE LIPOSOME/PF 266 MG/20 ML VIAL INFIL ONE (16:00)
[2017-02-04] MEDS ORDERED: oxyCODONE (CR) 10 MG TAB [oxyCONTIN] X1 DOSE PO ONE (16:00)
[2017-02-04] MEDS ORDERED: traMADOL 50 MG TAB X 1 DOSE PO ONE (16:00)
[2017-02-04] MEDS ORDERED: CELECOXIB 400 MG PO X1 DOSE PO ONE (16:00)
[2017-02-04] MEDS ORDERED: PAIN COCKTAIL - VANCOMYCIN IRR ONE ×7 (16:00)
[2017-02-04] MEDS ORDERED: PREGABALIN 300 MG PO X1 PO ONE (16:00)
[2017-02-04] MEDS ORDERED: CEFAZOLIN 2 GM/50 ML (PMX) 50 ML IVPB SCH (17:00)
[2017-02-04] MEDS ORDERED: TRANEXAMIC ACID 650 MG in SOD CHLORIDE 0.9% 100 ML IVPB ONE (17:00)
[2017-02-04] MEDS ORDERED: TOBRAMYCIN 1.2 GM POWDER ONE (17:26)
[2017-02-04] MEDS ORDERED: VANCOMYCIN 1 GM INJ ONE ×3 (17:26→18:51)
[2017-02-04] MEDS ORDERED: POLYMYXIN B 500000 UNIT INJ ONE (17:27)
[2017-02-04] MEDS ORDERED: MIDAZOLAM 1 MG/ML 2 ML INJ ONE (17:28)
[2017-02-04] MEDS ORDERED: FENTAnyl 50 MCG/ML VIAL ONE ×2 (17:28→22:29)
[2017-02-04] MEDS ORDERED: HEPARIN 1000 UNITS/ML 10 ML INJ ONE (17:33)
[2017-02-04] MEDS ORDERED: BACITRACIN 50000 UNITS INJ ONE (17:43)
--- NOTE | 2017-02-04 17:57 | HPN ---
Date/Time of Note Date/Time of Note DATE: 02/04/17 TIME: 17:55 Interval H&P Admission Note Pt. seen H&P reviewed: Systems changes noted below No change from H&P. Added possible medial gastroc flap and/or split thickness skin graft to consent. Explained that given prior need for repair of MCL by Dr. De León, if medial soft tissues are deficient and need soft tissue coverage, will plan to proceed with medial gastroc flap and/or split thickness skin graft. Patient understands and agrees to proceed with this if necessary. DG HERNÁNDEZ MD Feb 04, 2017 17:57
[2017-02-04] MEDS ORDERED: NALOXONE (0.4 MG/ML) INJ IV PRN (18:00)
[2017-02-04] MEDS ORDERED: MEPERIDINE 25 MG INJ IV PRN (18:00)
[2017-02-04] MEDS ORDERED: HYDROmorphONE (0.2 MG/ML) 10ML SYG IV PRN ×2 (18:00)
[2017-02-04] MEDS ORDERED: METOCLOPRAMIDE 10 MG INJ IV PRN (18:00)
[2017-02-04] MEDS ORDERED: LABETALOL HCL 20MG INJ IV PRN (18:00)
[2017-02-04] MEDS ORDERED: hydrALAzine 20 MG INJ IV PRN (18:00)
[2017-02-04] MEDS ORDERED: DIPHENHYDRAMINE 50 MG INJ IV PRN (18:00)
[2017-02-04] MEDS ORDERED: morphine (1 MG/ML) 10ML SYRINGE IV PRN (18:00)
[2017-02-04] MEDS ORDERED: SODIUM CL BACTERIOSTATIC 30 ML INJ ONE (18:44)
[2017-02-04] MEDS ORDERED: PHENYLephrine (100 MCG/ML) 5ML SYG ONE (20:44)
[2017-02-04] MEDS ORDERED: ROCURONIUM 50 MG INJ ONE (22:17)
[2017-02-04] MEDS ORDERED: LIDOCAINE 2% (SDV) 5 ML INJ ONE (22:17)
[2017-02-04] MEDS ORDERED: CEFAZOLIN 1 GM INJ ONE (22:17)
[2017-02-04] MEDS ORDERED: ETOMIDATE 20 MG INJ ONE (22:17)
[2017-02-04] MEDS ORDERED: ONDANSETRON 4 MG INJ ONE (22:18)
--- NOTE | 2017-02-04 22:28 | OPR ---
Date/Time of Note Date/Time of Note DATE: 02/04/17 TIME: 22:18 Operative Report Free Text/Dictation Plastic Surgery Operative Report Preoperative diagnosis: Right leg, periprosthetic fracture Postoperative diagnosis: same Procedure:right medial gastroc flap Surgeon: óscar Vila.: yogi Anesthesia: gen EBL:50 for plastic surgery portion of the procedure IV fluids: per anesthesia flow sheet Findings: n/a Complications:none Dispo:floor Indications for procedure: 76-year-old lady presents with a periprosthetic fracture in her right distal femur. She underwent a revision with Dr. Pedraza. During this portion, it was noted that her medial patellar tendon was frayed and nonviable. There is a small portion of the lateral patellar tendon that remained intact. Therefore, in order to service worker helper healing, it was determined that a medial gastroc flap would be planned. I was emergently called into the operating room to perform this portion of the procedure. This possibility had been previously discussed with the patient's family, including risks of bleeding , infection, wound healing problems, sensory changes in the foot, partial or total flap loss, need for revision, and the family stated that they understood these risks and agreed to proceed with the procedure. All questions were answered, no guarantees were given with regard to the outcome of this procedure. Description of procedure: I entered the operating room after the revision of the prosthesis had been performed. The medial patellar tendon was evaluated and was indeed frayed and partially nonviable. Distal tip was debrided. Next, the distal incision was extended 3 cm with a 10 blade, and dissection was carried out with electrocautery down to the anterior muscular fascia. Next, a longitudinal incision was made in the posterior calf with a 10 blade. Electrocautery was carried out down to the gastroc muscle. The medial gastroc muscle was from the overlying skin with electrocautery. Next, the medial portion of the medial gastroc muscle was identified, it was from the underlying muscle. The dissection was then performed with electrocautery deep to the gastroc muscle. Next, the distal portion of the gastroc was identified, and for approximately 1 cm it was dissected distally so that a small portion of the Achilles tendon was harvested. The distal portion of the gastroc was then from the Achilles, and then dissection proceeded in a distal to proximal fashion so that the medial and lateral gastroc were along the raphae. The saphenous nerve was carefully dissected free from the muscle that was harvested. Next, dissection proceeded proximally until adequate muscle had been released, and then releasing incisions were made along the deep portion of the gastroc muscle so that it had additional stretch. Hemostasis was then achieved with electrocautery and the muscle was passed from the calf to the knee. There is adequate reach and therefore the muscle was anchored to the medial patella with 0 Vicryl sutures. A 15 Talha drain was passed into the calf and was secured with 3-0 nylon suture. A final round of hemostasis was carried out and then the posterior calf incision was closed with 3-0 Vicryl suture and then flor. The patient tolerated the procedure well, there were no complications, she will remain in- house overnight LETITIA JACKSON MD Feb 04, 2017 22:28
--- NOTE | 2017-02-04 22:42 | PN ---
Date/Time of Note Date/Time of Note DATE: 02/04/17 TIME: 22:40 Assessment/Plan Lines/Catheters IV Catheter Type (from Nrsg): Peripheral IV Assessment/Plan Assessment/Plan Stable in PACU, s/p revision right TKA with distal femoral replacement, medial gastroc flap -continue antibiotics x 72 hours until final culture results -pain meds as needed -ASA/SCDs for DVT prophylaxis -OOB with PT with knee immobilizer in place at all times -check AM labs -monitor drains -monitor prevena wound vac -d/c davila in AM XR of the right knee is pending at this time Subjective 24 Hr Interval Summary Stable in PACU. Moving extremities. Groggy from anesthesia Exam/Review of Systems Vital Signs Vitals Vital Signs Date Time Temp Pulse Resp B/P Pulse Ox O2 Delivery O2 Flow Rate FiO2 02/04/17 08:03 97.7 67 18 159/74 95 Intake and Output 02/03/17 02/03/17 02/04/17 14:59 22:59 06:59 Intake Total 830 ml 550 ml Output Total 500 ml 350 ml Balance 330 ml 200 ml Exam Free Text/Dictation Hemovac: minimal Dressing dry Incision clean, dry, and intact without redness or drainage Thigh soft 5/5 Quadriceps, Tibialis Anterior, EHL, Gastroc, Soleus, Peroneals Normal sensation Palpable DT/PT, CR <2 sec No distal edema Results Result Diagram: 02/04/1744602/04/17446 VICKI SOLO PA-C Feb 04, 2017 22:42
[2017-02-04 22:55] LABS: HEMATOCRIT 36.3 % (37.0-47.0); HEMOGLOBIN 11.7 g/dl (12.0-16.0)
[2017-02-04] MEDS: ONDANSETRON 4 MG INJ IV PRN ×2 (22:55→22:57)
--- NOTE | 2017-02-04 22:56 | OPR ---
Date/Time of Note Date/Time of Note DATE: 02/04/17 TIME: 22:54 Operative Report Free Text/Dictation Dictation # [id number] Procedure Date: Feb 04, 2017 Preoperative Diagnosis Right Periprosthetic Femur Fracture around a TKA Postoperative Diagnosis Same Operation Performed Revision Right TKA with DFR and medial gastroc flap Surgeon: DG HERNÁNDEZ MD Co-Surgeon: LETITIA JACKSON MD legal support assistant: VICKI SOLO PA-C Anesthesia: general, spinal Anesthesiologist: USMAN RÍOS MD Tourniquet Time: 94 min Estimated Blood Loss: 250 - 300 ml's Specimens Aerobic and anaerobic culture x 2 Tubes/Drains ROLAND x 1, Talha x 1, Hemovac x 1 Complications: None Pt Condition Post Procedure: stable Disposition: PACU DG HERNÁNDEZ MD Feb 04, 2017 22:56
[2017-02-04] MEDS ORDERED: BISACODYL 10 MG SUPP PR PRN (23:00)
[2017-02-04] MEDS ORDERED: NACL 0.9% 3 ML SYG IV SCH (23:00)
[2017-02-04] MEDS ORDERED: ONDANSETRON 4 MG INJ IV PRN (23:00)
[2017-02-04] MEDS ORDERED: NA PHOSPHATE/BIPHOS 133 ML ENEMA PR PRN (23:00)
[2017-02-04] MEDS ORDERED: DIPHENHYDRAMINE 25 MG CAP PO PRN (23:00)
[2017-02-04] MEDS ORDERED: oxyCODONE 5 MG TAB PO PRN (23:00)
[2017-02-04] MEDS ORDERED: MAGNESIUM HYDROXIDE 30ML CUP PO PRN (23:00)
[2017-02-04] MEDS ORDERED: HYDROmorphONE 1 MG/ML SYG IV PRN (23:00)
[2017-02-04] MEDS: CEFAZOLIN 2 GM/50 ML (PMX) 50 ML IVPB SCH (23:04)
--- NOTE | 2017-02-04 23:18 | RADRPT ---
PROCEDURE: XR Knee. CLINICAL INDICATION: Postsurgical for revision right knee arthroplasty. Fracture of the distal fem oral metaphysis. TECHNIQUE: AP, lateral and oblique view of the right knee were obtained. The images reviewed on a PACS workstation. COMPARISON: Right knee series dated 02/02/2017. FINDINGS: New revision right knee arthroplasty. Surgical changes at the distal right femur with resection of the distal metadiaphysis and metaphysis. Previously seen arthroplasty hardware is removed. Antibiotic impregnated methylmethacrylate cement beads are seen in the upper knee joint compartment over the expected location of the distal aspect of the proximal prosthetic element. Post surgical air and fluid are seen over the knee. Post surgical drains in place. Surgical skin s taples are seen over the medial aspect of the right upper leg. No evident hardware complication or acute fracture. Remaining soft tissues unremarkable. IMPRESSION: New revision right knee arthroplasty without evident hardware complication or acute fracture. RPTAT: [facility]U Physician Jose Date Time Electronically viewed and signed by Physician Jose on 02/04/2017 23:18 RS/
[2017-02-04 23:20] LABS: POTASSIUM 3.7 mmol/L (3.5-5.1)
[2017-02-04 23:23] LABS: CALCIUM 8.4 mg/dl (8.4-10.2); CREATININE 0.62 mg/dl (0.44-1.00)
[2017-02-04] MEDS: ACETAMINOPHEN 1000MG/100ML IV 100 ML IVPB SCH (23:34)
[2017-02-05] VITALS (10 sets, daily range): BP systolic 94–145; BP diastolic 50–70; PULSE 66–80; RESP 16–20
[2017-02-05] MEDS: traMADol 50 MG TAB PO SCH ×5 (00:24→23:27)
--- NOTE | 2017-02-05 00:57 | RADRPT ---
PROCEDURE: Fluoroscopy services. CLINICAL INDICATION: Fracture of distal right femoral metaphysis TECHNIQUE: Fluoroscopy services during revision right knee arthroplasty. COMPARISON: Right knee plain film series dated 02/02/2017. FINDINGS: Fluoroscopy services were provided to the department of orthopedic surgery during revision right kne e arthroplasty. 14 intraoperative spot films were obtained at intermediate stages during this proced ure and demonstrate placement of right knee revision arthroplasty. 0.5 minutes of fluoroscopy time were employed during this procedure. IMPRESSION: Fluoroscopy services during revision right knee arthroplasty. RPTAT: UU Physician Jose Date Time Electronically viewed and signed by Physician Jose on 02/05/2017 00:57 RS/
[2017-02-05 01:14] LABS: ADD UMIC YES; URINE BILIRUBIN (Dip) NEGATIVE (NEGATIVE); URINE BLOOD (Dip) 1+ (NEGATIVE); URINE COLOR LT. YELLOW (YELLOW); URINE GLUCOSE (Dip) NEGATIVE (NEGATIVE); URINE KETONES (Dip) NEGATIVE (NEGATIVE); URINE LEUKOCYTE ESTERASE (Dip) NEGATIVE (NEGATIVE); URINE NITRITE (Dip) NEGATIVE (NEGATIVE); URINE TOTAL PROTEIN (Dip) NEGATIVE (NEGATIVE); URINE UROBILINOGEN (Dip) 0.2 E.U./dL (0.1-1.0)
[2017-02-05] MEDS: D5W-0.45 NACL + KCL 20 MEQ 1,000 ML IV SCH ×3 (01:29→23:30)
[2017-02-05 01:52] LABS: BACTERIA,URINE OCCASIONAL; SQUAMOUS EPITHELIAL CELL,UR FEW
[2017-02-05] MEDS ORDERED: TRANEXAMIC ACID 650 MG in SOD CHLORIDE 0.9% 100 ML IVPB ONE ×2 (02:00→05:00)
[2017-02-05 05:14] LABS: ADD SCAN DIFF NO
[2017-02-05 05:18] LABS: BASOPHILS % 0.3 % (0.0-2.0); EOSINOPHILS # 0.3 10^3/ul (0.0-0.5); EOSINOPHILS % 2.8 % (0.0-7.0); HEMATOCRIT 34.6 % (37.0-47.0); HEMOGLOBIN 10.8 g/dl (12.0-16.0); LYMPHOCYTES # 0.9 10^3/ul (0.8-2.9); LYMPHOCYTES % 7.9 % (15.0-51.0); MEAN CORPUSCULAR HEMOGLOBIN 26.9 pg (29.0-33.0); MEAN CORPUSCULAR HGB CONC 31.2 g/dl (32.0-37.0); MEAN CORPUSCULAR VOLUME 86.3 fl (82.0-101.0); MEAN PLATELET VOLUME 8.1 fl (7.4-10.4); MONOCYTE # 0.6 10^3/ul (0.3-0.9); MONOCYTES % 5.7 % (0.0-11.0); NEUTROPHIL # 8.9 10^3/ul (1.6-7.5); NEUTROPHILS % 82.5 % (39.0-77.0); PLATELET COUNT 197 10^3/UL (140-415); RED BLOOD COUNT 4.01 10^6/ul (4.20-5.40); RED CELL DISTRIBUTION WIDTH 16.3 % (11.5-14.5); WHITE BLOOD COUNT 10.7 10^3/ul (4.8-10.8)
--- NOTE | 2017-02-05 05:22 | OPR ---
DATE OF OPERATION: 02/04/2017 PREOPERATIVE DIAGNOSIS: Right knee periprosthetic femur fracture around a total knee arthroplasty. POSTOPERATIVE DIAGNOSIS: Right knee periprosthetic femur fracture around a total knee arthroplasty. OPERATIONS PERFORMED: 1. Revision right total knee arthroplasty with distal femoral replacement. 2. Medial gastrocnemius flap. SURGEON: Dg Hernández MD CO-SURGEON: Raul Quezada MD MUSICAL INSTRUMENT MECHANIC: Sid RIVER COMPONENTS USED: DePuy LPS femur extra-extra small, 12 mm diameter x 100 mm length stem, size-1 MBT revision tibial tray with a 37 mm metaphyseal sleeve and a 10 mm diameter x 115 mm stem, 12 mm poly ethylene insert. ANESTHESIA: Spinal plus general endotracheal intubation. ANESTHESIOLOGIST: Tong Moon MD TOURNIQUET TIME: 94 minutes. ESTIMATED BLOOD LOSS: 300 mL. INTRAVENOUS FLUIDS: Two liters of crystalloid and 100 mL of autologous Cell Saver blood. SPECIMENS: Aerobic and anaerobic culture of joint fluid x2. DRAINS: 1. A 10 mm Javier-Conte drain (deep). 2. Medium Hemovac (superficial). 3. Talha drain (posterior calf). DISPOSITION: Patient tolerated the procedure well and was taken to the recovery room in stable cond ition. INDICATIONS: The patient is a 76-year-old woman who recently underwent a right total knee arthropla sty approximately [address] De León. She has had worsening pain and was noted to have a completely displaced comminuted distal femoral fracture above the femoral component of her total kn ee arthroplasty. I felt this was a low fracture and would not be amenable to open reduction and int ernal fixation and recommended proceeding with a revision total knee arthroplasty with distal femora l replacement. It should be noted that on the x-rays it was noted there were 2 Mitek anchors in the medial proximal tibia. I discussed this with Dr. De León who informed me that there was injury to the medial soft tissue sleeve at the time of the index procedure, which he repaired with suture a nchors. Because of this, I felt that the patient could require a medial gastrocnemius flap and poss ible split-thickness skin graft. I spoke with Dr. Raul Quezada of plastic surgery prior to the louis tereso who agreed to be able to be present and come in if the flap was necessary. I discussed this wi th the patient prior to surgery today and explained the risks of the medial gastroc flap and possibl e split-thickness graft to the patient, which she understood and agreed to proceed with. I explaine d the risks of the entire procedure to include but not be limited to bleeding and possible need for blood transfusion, infection, pain, stiffness, neurovascular injury, possible numbness, weakness, an d/or paralysis anywhere from the knee down to the toes, fracture, ligamentous injury, need for addit ional future surgery including possible revision distal femoral replacement, possible loss of limb i ncluding above-knee amputation, wound healing problems, leg length inequality, blood clots, pulmonar y embolism, and anesthetic complications such as heart attack, stroke, GI bleed, pneumonia and/or de ath. Ample time was allowed for the patient to ask questions, all of which were addressed and answe red. The patient understood and wished to proceed. Informed consent was signed prior to the proced ure. PROCEDURE: The right knee was initialed with a marking pen in the preoperative holding area to iden tify the correct operative site. The patient was then brought to the operating room and transferred from the [facility] to the operating table, where she was administered a spinal anesthetic and then anesthetized and intubated. A Marion catheter was placed. A timeout was performed to confirm the right side was the correct operative site. She was given 1 gram of vancomycin and 2 grams of in travenous Ancef within 1 hour prior to the incision. A tourniquet was placed on right proximal thig h. The right knee and lower extremity were prepped and draped in usual sterile fashion as was the l eft lower extremity to compare leg lengths. The right lower extremity was elevated and exsanguinated with the Esmarch tourniquet and the proxima l thigh tourniquet was inflated to 300 mmHg. The knee was flexed. The previous midline incision wa s incised. It was carried down to subcutaneous tissue and fat with sharp dissection. Medial and la teral flaps were raised. I noted that there were multiple Ethibond sutures along the medial collate ral ligament and medial third of the patellar tendon. These were removed and it could be seen that the medial collateral ligament was deficient medially. Furthermore, the medial third of the patella r tendon was not in continuity with the tibia. However, the lateral two-thirds of the patellar tend on was intact with the tibial tubercle. At this point, the remainder of the medial parapatellar art hrotomy was reincised. The synovial fluid was swabbed for aerobic and anaerobic culture x2. The john ferrer was subluxed laterally and the knee flexed. The polyethylene liner was removed. The distal f emoral component was removed with electrocautery to remove the medial collateral ligament and latera l collateral ligament origin, as well as the posterior capsule. At this point, the femur was lifted up out of the wound with a large bone holding clamp. A cleanup osteotomy was made. The NeedFeed Ultra-Drive was used to free up the cement bone interface on the tibial component which was wayne jose l and all cement removed. The patellar component remained well affixed with no evidence of loosen ing. At this point, the tibia was reamed up to a size 10. I then broached up to a 37 mm metaphysea l sleeve, getting a good bite. The tibia sized to be a 1. The trial was placed into position. I t hen reamed the femur with the flexible reamers going up to a size 12, getting a good chatter. The c leanup reamer was used to clean up the edge of the distal femur, and a trial extra-extra small body with a 12 x 100 mm stem was placed in the femur and reduced onto the 12 mm polyethylene insert with the axle in place. The knee came to full extension. The right leg was about a centimeter longer th an the left, but I felt that this was in part due to the fact that the left knee had a significant v arus deformity and that if this were corrected the leg lengths would be equal. The knee was in full extension as evidenced by the fact that with the foot on my abdomen and axial loading, there was no tendency for the knee to flex. The knee was able be flexed to 120 degrees. The patella tracked we ll with no tilt or subluxation. AP and lateral C-arm imaging showed the components to be in good po sition, the stems be in good position. At this point, the trials were removed. The real components were assembled on the back table. A cement restrictor was placed up the femoral canal a centimeter proximal to where the tip of the stem would lie. One bag of cement was mixed with vancomycin in it and once in the doughy stage, the tibial component was cemented into place. This was held in place until the cement was completely hardened. Cement was kept away from the porous coating on the meta physeal sleeve so it would get bony ingrowth on the metaphyseal sleeve. Attention was turned toward s the femur. I had marked the anterior aspect of the femur that correlated with the anterior tab of the distal femoral replacement to ensure proper rotation. At this point, an additional 2 bags of c ement with vancomycin were mixed and pressurized and injected into the femoral canal. The real dist al femoral component was placed into position with proper rotation and held in place until the cemen t was completely hardened. At this point, the real 12 mm insert was placed in the tibia and reduced on the femur and the real axle was placed into position and locked into position. The tourniquet w as let down, and there was good hemostasis. The knee was irrigated with Betadine and saline with pe roxide and then antibiotic saline pulsatile lavage. Antibiotic beads were mixed with vancomycin and tobramycin and placed in the deep portion of the wound. A 10 flat Javier-Conte drain was placed i n the deep portion of the wound and brought out anterolaterally. The proximal 2/3 of the arthrotomy was closed with interrupted Ethibonds in a running #2 Stratafix. I felt that because there was a m edial defect and the medial third of the patellar tendon was not in contact with the tibia that this defect would best be filled with a medial gastroc flap. Dr. Quezada scrubbed in at this point. The edges of the patellar tendon were debrided back to healthy tissue. Dr. Quezada performed a medial g astroc flap, which will be dictated as a separate report by Dr. Quezada. Once the flap was harvested and tunneled anteriorly, it was sutured into place with interrupted #1 Vicryl in [id number] fa shion, getting good coverage of the medial defect and sewn into the patellar tendon. A Hemovac drai n was placed over the arthrotomy and brought out medially. Dr. Quezada had placed a Talha drain in t he posterior calf wound. The posterior calf wound was irrigated and closed in layers by Dr. Quezada with 0 Vicryl, 3-0 Vicryl, and flor on the skin. The anterior wound was closed with a running 2- 0 Stratafix and then interrupted 3-0 Vicryl and then 3-0 Prolene in vertical mattress fashion. The drains were secured with 3-0 nylons. Sponge and needle counts were correct at the end of the case. The wound was sealed with a Prevena wound VAC and the knee wrapped with sterile cast padding and bi as dressing. The patient was then awakened and extubated and taken to the recovery room in stable c ondition. Dictated By: DG HERNÁNDEZ MD EZ/NTS Conf#: [id number] DID#: [id number] CC: RAUL QUEZADA MD; VICKI RIVER;*EndCC*
[2017-02-05 05:31] LABS: POTASSIUM 4.1 mmol/L (3.5-5.1)
[2017-02-05 05:33] LABS: INR 1.18; PROTIME 15.1 Sec (12.2-14.2); PT RATIO 1.2
[2017-02-05 05:34] LABS: CREATININE 0.81 mg/dl (0.44-1.00)
[2017-02-05 05:35] LABS: CALCIUM 8.4 mg/dl (8.4-10.2)
[2017-02-05] MEDS: PANTOPRAZOLE (EC) 40 MG TAB PO SCH ×2 (05:46→17:58)
[2017-02-05] MEDS: ACETAMINOPHEN 1000MG/100ML IV 100 ML IVPB SCH ×3 (05:46→17:58)
[2017-02-05] MEDS: CEFAZOLIN 2 GM/50 ML (PMX) 50 ML IVPB SCH ×3 (06:24→23:26)
[2017-02-05] MEDS: HYDROCHLOROTHIAZIDE 12.5 MG CAP PO SCH (08:00)
--- NOTE | 2017-02-05 08:15 | RADRPT ---
Vent Rate: 68 bpm RR Interval: 0 msec IN Interval: 120 msec QRS Duration: 70 msec QT Interval: 376 msec QTC Interval: 399 msec P-R-T [place]: -53 - 29 - 36 degrees Unusual P axis, possible ectopic atrial rhythm Abnormal ECG Electronically Signed By: Raheel Golden [id number]
[2017-02-05] MEDS: PREGABALIN 25 MG CAP PO SCH ×2 (08:41→21:12)
[2017-02-05] MEDS: ASPIRIN (EC) 325 MG TAB PO SCH ×2 (08:41→21:12)
[2017-02-05] MEDS: DOCUSATE SODIUM 100 MG CAP PO SCH ×2 (08:41→21:12)
--- NOTE | 2017-02-05 08:55 | PN ---
Date/Time of Note Date/Time of Note DATE: 02/05/17 TIME: 08:53 Assessment/Plan Lines/Catheters IV Catheter Type (from Nrsg): Peripheral IV Marion in Place (from Nrsg): No Assessment/Plan Assessment/Plan Stable POD #1, s/p revision right TKA with distal femoral replacement, medial gastroc flap -continue antibiotics until final culture results -pain meds prn -ASA/SCDs for DVT prophylaxis -OOB with PT with knee immobilizer locked in extension -monitor drains -check AM labs -d/c planning. Requesting ARU eval Subjective 24 Hr Interval Summary No acute overnight events. Denies pain. Moving all extremities. Did not start with PT. H&H stable after surgery and receiving 2 units PRBCs. Exam/Review of Systems Vital Signs Vitals Vital Signs Date Time Temp Pulse Resp B/P Pulse Ox O2 Delivery O2 Flow Rate FiO2 02/05/17 07:00 97.7 73 20 94/50 97 02/05/17 03:45 Nasal Cannula 02/05/17 00:15 2.0 Intake and Output 02/04/17 02/04/17 02/05/17 15:00 23:00 07:00 Intake Total 2150 ml 825 ml Output Total 2430 ml 2715 ml Balance -280 ml -1890 ml Exam Free Text/Dictation Hemovac: 245cc Dressing dry Incision clean, dry, and intact without redness or drainage Thigh soft 5/5 Quadriceps, Tibialis Anterior, EHL, Gastroc, Soleus, Peroneals Normal sensation Palpable DT/PT, CR <2 sec No distal edema Results Result Diagram: 02/05/17 0457 02/05/17 0457 VICKI SOLO PA-C Feb 05, 2017 08:55
[2017-02-05 10:02] LABS: ADD UMIC YES; URINE BILIRUBIN (Dip) NEGATIVE (NEGATIVE); URINE BLOOD (Dip) 2+ (NEGATIVE); URINE COLOR YELLOW (YELLOW); URINE GLUCOSE (Dip) NEGATIVE (NEGATIVE); URINE KETONES (Dip) TRACE (NEGATIVE); URINE LEUKOCYTE ESTERASE (Dip) NEGATIVE (NEGATIVE); URINE NITRITE (Dip) NEGATIVE (NEGATIVE); URINE TOTAL PROTEIN (Dip) 1+ (NEGATIVE); URINE UROBILINOGEN (Dip) 0.2 E.U./dL (0.1-1.0)
[2017-02-05 10:42] LABS: SQUAMOUS EPITHELIAL CELL,UR FEW
[2017-02-05 10:44] LABS: BACTERIA,URINE FEW
--- NOTE | 2017-02-05 13:42 | PN ---
Date/Time of Note Date/Time of Note DATE: 02/05/17 TIME: 13:38 Assessment/Plan VTE Prophylaxis VTE Prophylaxis Intervention: other Lines/Catheters IV Catheter Type (from [facility]): Peripheral IV Urinary Cath still in place: No Assessment/Plan Chief Complaint/Hosp Course ASSESSMENT AND PLAN: 1. Right knee periprosthetic femur fracture around a total knee arthroplasty. S/p Revision right total knee arthroplasty with distal femoral replacement and Medial gastrocnemius flap. Postop care and physical therapy per orthopedic surgery team. Continue pain medication 2. Hypertension. Will continue the patient's hydrochlorothiazide. She is also on hydralazine p.r.n. for systolic greater than 160. 3. History of arthritis. Continue current medications. 4. Anemia. Stable, follow up with orthopedic surgeon regarding transfusion We will continue to follow along with you. Problems: Subjective 24 Hr Interval Summary Free Text/Dictation Postop day #1 Doing well Denies any chest pain or shortness of breath Was not able to participate with physical therapist secondary to grogginess Exam/Review of Systems Vital Signs Vitals Vital Signs Date Time Temp Pulse Resp B/P Pulse Ox O2 Delivery O2 Flow Rate FiO2 02/05/17 09:19 95 21 02/05/17 07:00 97.7 73 20 94/50 02/05/17 03:45 Nasal Cannula 02/05/17 00:15 2.0 Intake and Output 02/04/17 02/04/17 02/05/17 15:00 23:00 07:00 Intake Total 2150 ml 825 ml Output Total 2430 ml 2715 ml Balance -280 ml -1890 ml Exam General: The patient is well-developed, Not in acute distress. HEENT: Atraumatic, normocephalic. The pupils are equal and round . Neck: Supple with full range of motion. Chest: Normal expansion of the thorax during inspiration Lungs: Clear to auscultation bilaterally Heart: Normal S1-S2, Regular rhythm and rate. Abdomen: Soft , nontender, nondistended , bowel sounds are present. Extremities: Surgical site is dry and clean, drain in place 2, no edema no cyanosis Neurologic:The patient is awake, alert Results Result Diagram: 02/05/17 0457 02/05/17 0457 Results 24 hrs Laboratory Tests Test 02/04/17 22:40 02/04/17 22:48 02/05/17 04:57 02/05/17 05:30 Urine Color LT. YELLOW YELLOW Urine Clarity CLEAR CLEAR Urine pH 5.5 5.5 Urine Specific [place] 1.025 1.025 Urine Ketones NEGATIVE TRACE H Urine Nitrite NEGATIVE NEGATIVE Urine Bilirubin NEGATIVE NEGATIVE Urine Urobilinogen 0.2 E.U./dL 0.2 E.U./dL Urine Leukocyte Esterase NEGATIVE NEGATIVE Urine Microscopic RBC 5-10 5-10 Urine Microscopic WBC 0-2 5-10 Urine Squamous Epithelial Cells FEW FEW Urine Bacteria OCCASIONAL FEW Urine Hemoglobin 1+ H 2+ H Urine Glucose NEGATIVE NEGATIVE Urine Total Protein NEGATIVE 1+ H Hemoglobin 11.7 L 10.8 L Hematocrit 36.3 L 34.6 L Sodium Level 138 139 Potassium Level 3.7 4.1 Chloride Level 101 101 Carbon Dioxide Level 28 30 Anion Gap 13 12 Blood Urea Nitrogen 12 13 Creatinine 0.62 0.81 Glucose Level 118 125 Calcium Level 8.4 8.4 White Blood Count 10.7 # Red Blood Count 4.01 L Mean Corpuscular Volume 86.3 Mean Corpuscular Hemoglobin 26.9 L Mean Corpuscular Hemoglobin Concent 31.2 L Red Cell Distribution Width 16.3 H Platelet Count 197 # Mean Platelet Volume 8.1 Neutrophils % 82.5 H Lymphocytes % 7.9 L Monocytes % 5.7 Eosinophils % 2.8 Basophils % 0.3 Nucleated Red Blood Cells % 0.0 Neutrophils # 8.9 H Lymphocytes # 0.9 Monocytes # 0.6 Eosinophils # 0.3 Basophils # 0.0 Nucleated Red Blood Cells # 0.0 Prothrombin Time 15.1 H Prothrombin Time Ratio 1.2 INR International Normalized Ratio 1.18 Urine Fine Granular Casts FEW Urine Waxy Casts Urine Other FEW Medications Medications Current Medications Hydralazine HCl (Apresoline) 10 mg Q6H PRN IV ELEVATED BLOOD PRESSURE; Start at 20:30 Hydrochlorothiazide (Hydrochlorothiazide) 12.5 mg DAILY PO Last administered on 02/04/17t 08:33; Admin Dose 12.5 MG; Start 02/03/17 at 09:00 Miscellaneous Information 1 ea 1 ea NOTE XX ; Start 02/04/17 at 10:30; Stop at 10:29 Potassium Chloride/Dextrose/ Sod Cl 1,000 ml @ 75 mls/hr [id number] IV Last administered on 02/05/17 11:40; Admin Dose 75 MLS/HR; Start 02/04/17 at 12:30 Acetaminophen (Ofirmev 1000mg/ 100ml Iv) 100 ml @ 400 mls/hr Q6 IVPB Last administered on 02/05/17 11:40; Admin Dose 400 MLS/HR; Start 02/05/17 at 00:00 ; Stop 02/05/17 at 23:59 Tramadol HCl (Ultram) 50 mg Q6 PO Last administered on 02/05/17 11:40; Admin Dose 50 MG; Start 02/04/17 at 12:00; Stop 02/07/17 at 11:59 Oxycodone HCl (Roxicodone) 5 mg Q4H PRN PO PAIN LEVEL 1-3; Start 02/04/17 at 23 :00 Oxycodone HCl (Roxicodone) 10 mg Q4H PRN PO PAIN LEVEL 4-7; Start 02/04/17 at 23:00 Hydromorphone HCl 1 mg 1 mg Q3H PRN IV PAIN LEVEL 8-10; Start 02/04/17 at 23:00 Cefazolin Sodium/ Dextrose (Ancef 2 Gm/50 ml (Pmx)) 50 ml @ 100 mls/hr Q8H IVPB Last administered on 02/05/17 06:24; Admin Dose 100 MLS/HR; Start at 23:00; Stop 02/07/17 at 22:59 Ondansetron HCl (Zofran Inj) 4 mg Q6H PRN IV NAUSEA AND/OR VOMITING; Start at 23:00 Bisacodyl (Dulcolax Supp) 10 mg Q12H PRN LA CONSTIPATION; Start 02/04/17 at 23: 00 Magnesium Hydroxide (Milk Of Mag) 30 ml BID PRN PO CONSTIPATION; Start at 23:00 Sodium Biphosphate/ Sodium Phosphate (Fleet Enema) 133 ml DAILY PRN LA CONSTIPATION; Start 02/04/17 at 23:00 Docusate Sodium (Colace) 100 mg BID PO ; Start 02/04/17 at 21:00 Diphenhydramine HCl (Benadryl) 25 mg Q6H PRN PO PRURITUS; Start 02/04/17 at 23: 00 Aspirin (Ecotrin) 325 mg BID PO Last administered on 02/05/17 08:41; Admin Dose 325 MG; Start 02/05/17 at 09:00 Pantoprazole (Protonix Tab) 40 mg BID@18 PO Last administered on 02/05/17 05:46; Admin Dose 40 MG; Start 02/05/17 at 06:00 Pregabalin (Lyrica) 50 mg BID PO Last administered on 02/05/17 08:41; Admin Dose 50 MG; Start 02/05/17 at 09:00 RAUL NAGEL MD Feb 05, 2017 13:42
[2017-02-06] MEDS: D5W-0.45 NACL + KCL 20 MEQ 1,000 ML IV SCH ×3 (00:58→20:53)
[2017-02-06 05:16] LABS: ADD SCAN DIFF NO
[2017-02-06 05:20] LABS: BASOPHILS % 0.2 % (0.0-2.0); EOSINOPHILS # 0.6 10^3/ul (0.0-0.5); EOSINOPHILS % 6.3 % (0.0-7.0); HEMATOCRIT 33.2 % (37.0-47.0); HEMOGLOBIN 10.3 g/dl (12.0-16.0); LYMPHOCYTES # 0.8 10^3/ul (0.8-2.9); LYMPHOCYTES % 8.3 % (15.0-51.0); MEAN CORPUSCULAR HEMOGLOBIN 26.7 pg (29.0-33.0); MEAN PLATELET VOLUME 8.3 fl (7.4-10.4); MONOCYTE # 0.6 10^3/ul (0.3-0.9); MONOCYTES % 6.1 % (0.0-11.0); NEUTROPHIL # 7.7 10^3/ul (1.6-7.5); NEUTROPHILS % 78.6 % (39.0-77.0); PLATELET COUNT 194 10^3/UL (140-415); RED BLOOD COUNT 3.86 10^6/ul (4.20-5.40); RED CELL DISTRIBUTION WIDTH 15.7 % (11.5-14.5); WHITE BLOOD COUNT 9.7 10^3/ul (4.8-10.8)
[2017-02-06 05:30] LABS: INR 1.39; PROTIME 17.1 Sec (12.2-14.2); PT RATIO 1.3
[2017-02-06] MEDS: traMADol 50 MG TAB PO SCH ×4 (05:37→23:18)
[2017-02-06] MEDS: PANTOPRAZOLE (EC) 40 MG TAB PO SCH ×2 (05:37→18:16)
[2017-02-06] MEDS: CEFAZOLIN 2 GM/50 ML (PMX) 50 ML IVPB SCH ×3 (05:39→22:41)
[2017-02-06 05:48] LABS: POTASSIUM 4.1 mmol/L (3.5-5.1)
[2017-02-06 05:50] LABS: CREATININE 0.85 mg/dl (0.44-1.00)
[2017-02-06 05:51] LABS: CALCIUM 7.9 mg/dl (8.4-10.2)
[2017-02-06 08:19] VITALS: BP 160/72; RESP 18
[2017-02-06] MEDS: ASPIRIN (EC) 325 MG TAB PO SCH ×2 (08:28→20:45)
[2017-02-06] MEDS: DOCUSATE SODIUM 100 MG CAP PO SCH ×2 (08:28→20:45)
[2017-02-06] MEDS: HYDROCHLOROTHIAZIDE 12.5 MG CAP PO SCH (08:29)
[2017-02-06] MEDS: PREGABALIN 25 MG CAP PO SCH ×2 (08:30→20:45)
[2017-02-06 10:00] VITALS: BP 146/74; PULSE 70
--- NOTE | 2017-02-06 11:18 | PN ---
Date/Time of Note Date/Time of Note DATE: 02/06/17 TIME: 10:56 Assessment/Plan VTE Prophylaxis VTE Prophylaxis Intervention: SCD's Lines/Catheters IV Catheter Type (from [facility]): Peripheral IV Urinary Cath still in place: No Assessment/Plan Chief Complaint/Hosp Course ASSESSMENT AND PLAN: 1. Right knee periprosthetic femur fracture around a total knee arthroplasty. S/p Revision right total knee arthroplasty with distal femoral replacement and Medial gastrocnemius flap. Postop care and physical therapy per orthopedic surgery team. Continue pain medication 2. Hypertension. Will continue the patient's hydrochlorothiazide. She is also on hydralazine p.r.n. for systolic greater than 160. 3. History of arthritis. Continue current medications. 4. Anemia. Stable, follow up with orthopedic surgeon regarding transfusion We will continue to follow along with you. Problems: Subjective 24 Hr Interval Summary Free Text/Dictation Patient is awake and alert Denies of any chest pain or shortness of breath Tolerating oral intake Ambulate with recreation assistant 10 feet Exam/Review of Systems Vital Signs Vitals Vital Signs Date Time Temp Pulse Resp B/P Pulse Ox O2 Delivery O2 Flow Rate FiO2 02/06/17 08:19 98.4 78 18 160/72 100 02/05/17 21:10 Nasal Cannula 2.0 02/05/17 17:39 21 Intake and Output 02/05/17 02/05/17 02/06/17 15:00 23:00 07:00 Intake Total 805 ml 810 ml 1648 ml Output Total 175 ml 490 ml Balance 805 ml 635 ml 1158 ml Exam General: The patient is well-developed, Not in acute distress. HEENT: Atraumatic, normocephalic. The pupils are equal and round . Neck: Supple with full range of motion. Chest: Normal expansion of the thorax during inspiration Lungs: Clear to auscultation bilaterally Heart: Normal S1-S2, Regular rhythm and rate. Abdomen: Soft , nontender, nondistended , bowel sounds are present. Extremities: Right knee surgical site is dry and clean drain in place, no edema no cyanosis Neurologic: Normal mental status,The patient is awake, alert and oriented . Results Result Diagram: 02/06/17 0430 02/06/17 0430 Results 24 hrs Laboratory Tests Test 02/06/17 04:30 White Blood Count 9.7 Red Blood Count 3.86 L Hemoglobin 10.3 L Hematocrit 33.2 L Mean Corpuscular Volume 86.0 Mean Corpuscular Hemoglobin 26.7 L Mean Corpuscular Hemoglobin Concent 31.0 L Red Cell Distribution Width 15.7 H Platelet Count 194 Mean Platelet Volume 8.3 Neutrophils % 78.6 H Lymphocytes % 8.3 L Monocytes % 6.1 Eosinophils % 6.3 Basophils % 0.2 Nucleated Red Blood Cells % 0.0 Neutrophils # 7.7 H Lymphocytes # 0.8 Monocytes # 0.6 Eosinophils # 0.6 H Basophils # 0.0 Nucleated Red Blood Cells # 0.0 Prothrombin Time 17.1 H Prothrombin Time Ratio 1.3 INR International Normalized Ratio 1.39 Sodium Level 134 L Potassium Level 4.1 Chloride Level 99 Carbon Dioxide Level 28 Anion Gap 11 Blood Urea Nitrogen 15 Creatinine 0.85 Glucose Level 134 Calcium Level 7.9 L Medications Medications Current Medications Hydralazine HCl (Apresoline) 10 mg Q6H PRN IV ELEVATED BLOOD PRESSURE; Start at 20:30 Hydrochlorothiazide (Hydrochlorothiazide) 12.5 mg DAILY PO Last administered on 02/06/17 08:29; Admin Dose 12.5 MG; Start 02/03/17 at 09:00 Miscellaneous Information 1 ea 1 ea NOTE XX ; Start 02/04/17 at 10:30; Stop at 10:29 Potassium Chloride/Dextrose/ Sod Cl (D5-1/2ns + KCl 20 Meq) 1,000 ml @ 100 mls/ hr Q10H IV Last administered on 02/05/17 23:30; Admin Dose 100 MLS/HR; Start 02/04/17 at 12:30 Tramadol HCl (Ultram) 50 mg Q6 PO Last administered on 02/06/17 05:37; Admin Dose 50 MG; Start 02/04/17 at 12:00; Stop 02/07/17 at 11:59 Oxycodone HCl (Roxicodone) 5 mg Q4H PRN PO PAIN LEVEL 1-3; Start 02/04/17 at 23 :00 Oxycodone HCl (Roxicodone) 10 mg Q4H PRN PO PAIN LEVEL 4-7; Start 02/04/17 at 23:00 Hydromorphone HCl 1 mg 1 mg Q3H PRN IV PAIN LEVEL 8-10; Start 02/04/17 at 23:00 Cefazolin Sodium/ Dextrose (Ancef 2 Gm/50 ml (Pmx)) 50 ml @ 100 mls/hr Q8H IVPB Last administered on 02/06/17 05:39; Admin Dose 100 MLS/HR; Start at 23:00; Stop 02/07/17 at 22:59 Ondansetron HCl (Zofran Inj) 4 mg Q6H PRN IV NAUSEA AND/OR VOMITING; Start at 23:00 Bisacodyl (Dulcolax Supp) 10 mg Q12H PRN [place] CONSTIPATION; Start 02/04/17 at 23: 00 Magnesium Hydroxide (Milk Of Mag) 30 ml BID PRN PO CONSTIPATION; Start at 23:00 Sodium Biphosphate/ Sodium Phosphate (Fleet Enema) 133 ml DAILY PRN [place] CONSTIPATION; Start 02/04/17 at 23:00 Docusate Sodium (Colace) 100 mg BID PO Last administered on 02/06/17 08:28; Admin Dose 100 MG; Start 02/04/17 at 21:00 Diphenhydramine HCl (Benadryl) 25 mg Q6H PRN PO PRURITUS; Start 02/04/17 at 23: 00 Aspirin (Ecotrin) 325 mg BID PO Last administered on 02/06/17 08:28; Admin Dose 325 MG; Start 02/05/17 at 09:00 Pantoprazole (Protonix Tab) 40 mg BID@06,18 PO Last administered on 02/06/17 05:37; Admin Dose 40 MG; Start 02/05/17 at 06:00 Pregabalin (Lyrica) 50 mg BID PO Last administered on 02/05/17 21:12; Admin Dose 50 MG; Start 02/05/17 at 09:00 RAUL NAGEL MD Feb 06, 2017 11:06
--- NOTE | 2017-02-06 13:47 | PN ---
Date/Time of Note Date/Time of Note DATE: 02/06/17 TIME: 13:45 Assessment/Plan Lines/Catheters IV Catheter Type (from Nrsg): Peripheral IV Marion in Place (from Nrsg): No Assessment/Plan Assessment/Plan Stable POD #2, s/p revision right TKA with distal femoral replacement, medial gastroc flap -continue antibiotics until final culture results -pain meds as needed -ASA/SCDs for DVT prophylaxis -OOB with PT with knee immobilizer locked in extension -monitor drains -check AM labs -d/c planning. Requesting ARU eval when stable Subjective 24 Hr Interval Summary Doing well. No acute overnight events. Denies significant pain. Working with physical therapy. VSS, afebrile. Exam/Review of Systems Vital Signs Vitals Vital Signs Date Time Temp Pulse Resp B/P Pulse Ox O2 Delivery O2 Flow Rate FiO2 02/06/17 10:00 70 146/74 02/06/17 08:19 98.4 18 100 02/05/17 21:10 Nasal Cannula 2.0 02/05/17 17:39 21 Intake and Output 02/05/17 02/05/17 02/06/17 15:00 23:00 07:00 Intake Total 805 ml 810 ml 1648 ml Output Total 175 ml 490 ml Balance 805 ml 635 ml 1158 ml Exam Free Text/Dictation Hemovac: 285cc Dressing dry Incision clean, dry, and intact without redness or drainage 5/5 Quadriceps, Tibialis Anterior, EHL, Gastroc, Soleus, Peroneals Normal sensation Palpable DT/PT, CR <2 sec No distal edema Results Result Diagram: 02/06/1742902/06/17429 VICKI SOLO PA-C Feb 06, 2017 13:47
[2017-02-06 20:32] VITALS: BP 147/74; RESP 20
[2017-02-07 04:56] LABS: ADD SCAN DIFF NO
[2017-02-07 05:14] LABS: POTASSIUM 3.6 mmol/L (3.5-5.1)
[2017-02-07 05:15] LABS: INR 1.21; PROTIME 15.4 Sec (12.2-14.2); PT RATIO 1.2
[2017-02-07 05:17] LABS: CREATININE 0.63 mg/dl (0.44-1.00)
[2017-02-07 05:18] LABS: CALCIUM 8.7 mg/dl (8.4-10.2)
[2017-02-07 05:27] LABS: BASOPHILS % 0.3 % (0.0-2.0); EOSINOPHILS # 0.5 10^3/ul (0.0-0.5); EOSINOPHILS % 5.8 % (0.0-7.0); HEMATOCRIT 28.9 % (37.0-47.0); HEMOGLOBIN 9.4 g/dl (12.0-16.0); LYMPHOCYTES % 12.5 % (15.0-51.0); MEAN CORPUSCULAR HEMOGLOBIN 27.4 pg (29.0-33.0); MEAN CORPUSCULAR HGB CONC 32.5 g/dl (32.0-37.0); MEAN CORPUSCULAR VOLUME 84.3 fl (82.0-101.0); MEAN PLATELET VOLUME 8.6 fl (7.4-10.4); MONOCYTE # 0.6 10^3/ul (0.3-0.9); MONOCYTES % 7.5 % (0.0-11.0); NEUTROPHIL # 5.8 10^3/ul (1.6-7.5); NEUTROPHILS % 73.4 % (39.0-77.0); PLATELET COUNT 184 10^3/UL (140-415); RED BLOOD COUNT 3.43 10^6/ul (4.20-5.40); RED CELL DISTRIBUTION WIDTH 15.5 % (11.5-14.5); WHITE BLOOD COUNT 7.9 10^3/ul (4.8-10.8)
[2017-02-07] MEDS: CEFAZOLIN 2 GM/50 ML (PMX) 50 ML IVPB SCH ×2 (06:24→21:57)
[2017-02-07] MEDS: PANTOPRAZOLE (EC) 40 MG TAB PO SCH ×2 (06:25→18:47)
[2017-02-07] MEDS: D5W-0.45 NACL + KCL 20 MEQ 1,000 ML IV SCH ×2 (07:10→17:10)
[2017-02-07] MEDS: traMADol 50 MG TAB PO SCH (07:54)
[2017-02-07 08:20] VITALS: BP 162/70; RESP 18
[2017-02-07] MEDS: DOCUSATE SODIUM 100 MG CAP PO SCH ×2 (08:27→20:49)
[2017-02-07] MEDS: HYDROCHLOROTHIAZIDE 12.5 MG CAP PO SCH (08:27)
[2017-02-07] MEDS: PREGABALIN 25 MG CAP PO SCH ×2 (08:27→20:48)
[2017-02-07] MEDS: ASPIRIN (EC) 325 MG TAB PO SCH ×2 (08:27→20:48)
--- NOTE | 2017-02-07 08:36 | PN ---
Date/Time of Note Date/Time of Note DATE: 02/07/17 TIME: 08:34 Assessment/Plan Lines/Catheters IV Catheter Type (from Nrsg): Saline Lock [place] in Place (from Nrsg): No Assessment/Plan Assessment/Plan Stable POD #3, s/p revision right TKA with distal femoral replacement, medial gastroc flap -continue antibiotics until final culture results -pain meds as needed -ASA/SCDs for DVT prophylaxis -OOB with PT with knee immobilizer locked in extension -monitor drains -will plan to change Provena wound vac today -check AM labs -d/c planning. Requesting ARU eval when stable Subjective 24 Hr Interval Summary No acute overnight events. Pain controlled with oral pain medication. Did well with PT yesterday. Exam/Review of Systems Vital Signs Vitals Vital Signs Date Time Temp Pulse Resp B/P Pulse Ox O2 Delivery O2 Flow Rate FiO2 02/07/17 08:20 98.6 81 18 162/70 97 02/05/17 21:10 Nasal Cannula 2.0 02/05/17 17:39 21 Intake and Output 02/06/17 02/06/17 02/07/17 15:00 23:00 07:00 Intake Total 750 ml 530 ml Output Total 40 ml 1630 ml 1285 ml Balance -40 ml -880 ml -755 ml Exam Free Text/Dictation Hemovac: 205cc Dressing dry Incision clean, dry, and intact without redness or drainage Thigh soft 5/5 Quadriceps, Tibialis Anterior, EHL, Gastroc, Soleus, Peroneals Normal sensation Palpable DT/PT, CR <2 sec No distal edema Results Result Diagram: 02/07/17 0421 02/07/17 042 VICKI SOLO PA-C Feb 07, 2017 08:36
--- NOTE | 2017-02-07 11:35 | PN ---
Date/Time of Note Date/Time of Note DATE: 02/07/17 TIME: 11:33 Assessment/Plan VTE Prophylaxis VTE Prophylaxis Intervention: other Lines/Catheters IV [facility] (from [facility] Saline Lock Urinary Cath still in place: No Assessment/Plan Chief Complaint/Hosp Course ASSESSMENT AND PLAN: 1. Right knee periprosthetic femur fracture around a total knee arthroplasty. S/p Revision right total knee arthroplasty with distal femoral replacement and Medial gastrocnemius flap. Postop care and physical therapy per orthopedic surgery team. Continue pain medication 2. Hypertension. Will continue the patient's hydrochlorothiazide. She is also on hydralazine p.r.n. for systolic greater than 160. 3. History of arthritis. Continue current medications. 4. Anemia. Stable, follow up with orthopedic surgeon regarding transfusion We will continue to follow along with you. Problems: Subjective 24 Hr Interval Summary Free Text/Dictation Doing well Continues to have mild pain in her right knee Denies any chest pain or shortness of breath Participating with physical therapy Exam/Review of Systems Vital Signs Vitals Vital Signs Date Time Temp Pulse Resp B/P Pulse Ox O2 Delivery O2 Flow Rate FiO2 02/07/17 08:20 98.6 81 18 162/70 97 02/05/17 21:10 Nasal Cannula 2.0 02/05/17 17:39 21 Intake and Output 02/06/17 02/06/17 02/07/17 15:00 23:00 07:00 Intake Total 750 ml 530 ml Output Total 40 ml 1630 ml 1285 ml Balance -40 ml -880 ml -755 ml Exam General: The patient is well-developed, Not in acute distress. HEENT: Atraumatic, normocephalic. The pupils are equal and round . Neck: Supple with full range of motion. Chest: Normal expansion of the thorax during inspiration Lungs: Clear to auscultation bilaterally Heart: Normal S1-S2, Regular rhythm and rate. Abdomen: Soft , nontender, nondistended , bowel sounds are present. Extremities: Right knee in soft brace, surgical site is dry and clean, no edema no cyanosis Neurologic: Normal mental status,The patient is awake, alert and oriented . Results Result Diagram: 02/07/17 0421 02/07/17 0421 Results 24 hrs Laboratory Tests Test 02/07/17 04:21 White Blood Count 7.9 Red Blood Count 3.43 L Hemoglobin 9.4 L Hematocrit 28.9 L Mean Corpuscular Volume 84.3 Mean Corpuscular Hemoglobin 27.4 L Mean Corpuscular Hemoglobin Concent 32.5 Red Cell Distribution Width 15.5 H Platelet Count 184 Mean Platelet Volume 8.6 Neutrophils % 73.4 Lymphocytes % 12.5 L Monocytes % 7.5 Eosinophils % 5.8 Basophils % 0.3 Nucleated Red Blood Cells % 0.0 Neutrophils # 5.8 Lymphocytes # 1.0 Monocytes # 0.6 Eosinophils # 0.5 Basophils # 0.0 Nucleated Red Blood Cells # 0.0 Prothrombin Time 15.4 H Prothrombin Time Ratio 1.2 INR International Normalized Ratio 1.21 Sodium Level 134 L Potassium Level 3.6 Chloride Level 96 L Carbon Dioxide Level 31 Anion Gap 11 Blood Urea Nitrogen 8 Creatinine 0.63 Glucose Level 107 Calcium Level 8.7 Medications Medications Current Medications Hydralazine HCl (Apresoline) 10 mg Q6H PRN IV ELEVATED BLOOD PRESSURE; Start at 20:30 Hydrochlorothiazide (Hydrochlorothiazide) 12.5 mg DAILY PO Last administered on 02/07/17 08:27; Admin Dose 12.5 MG; Start 02/03/17 at 09:00 Miscellaneous Information 1 ea 1 ea NOTE XX ; Start 02/04/17 at 10:30; Stop at 10:29 Potassium Chloride/Dextrose/ Sod Cl (D5-1/2ns + KCl 20 Meq) 1,000 ml @ 100 mls/ hr Q10H IV Last administered on 02/06/17 11:16; Admin Dose 100 MLS/HR; Start 02/04/17 at 12:30 Tramadol HCl (Ultram) 50 mg Q6 PO Last administered on 02/07/17 07:54; Admin Dose 50 MG; Start 02/04/17 at 12:00; Stop 02/07/17 at 11:59 Oxycodone HCl (Roxicodone) 5 mg Q4H PRN PO PAIN LEVEL 1-3; Start 02/04/17 at 23 :00 Oxycodone HCl (Roxicodone) 10 mg Q4H PRN PO PAIN LEVEL 4-7; Start 02/04/17 at 23:00 Hydromorphone HCl 1 mg 1 mg Q3H PRN IV PAIN LEVEL 8-10; Start 02/04/17 at 23:00 Cefazolin Sodium/ Dextrose (Ancef 2 Gm/50 ml (Pmx)) 50 ml @ 100 mls/hr Q8H IVPB Last administered on 02/07/17 06:24; Admin Dose 100 MLS/HR; Start at 23:00; Stop 02/07/17 at 22:59 Ondansetron HCl (Zofran Inj) 4 mg Q6H PRN IV NAUSEA AND/OR VOMITING; Start at 23:00 Bisacodyl (Dulcolax Supp) 10 mg Q12H PRN [place] CONSTIPATION; Start 02/04/17 at 23: 00 Magnesium Hydroxide (Milk Of Mag) 30 ml BID PRN PO CONSTIPATION Last administered on 02/07/17 04:10; Admin Dose 30 ML; Start 02/04/17 at 23:00 Sodium Biphosphate/ Sodium Phosphate (Fleet Enema) 133 ml DAILY PRN [place] CONSTIPATION; Start 02/04/17 at 23:00 Docusate Sodium (Colace) 100 mg BID PO Last administered on 02/07/17 08:27; Admin Dose 100 MG; Start 02/04/17 at 21:00 Diphenhydramine HCl (Benadryl) 25 mg Q6H PRN PO PRURITUS; Start 02/04/17 at 23: 00 Aspirin (Ecotrin) 325 mg BID PO Last administered on 02/07/17 08:27; Admin Dose 325 MG; Start 02/05/17 at 09:00 Pantoprazole (Protonix Tab) 40 mg BID@06,18 PO Last administered on 02/07/17 06:25; Admin Dose 40 MG; Start 02/05/17 at 06:00 Pregabalin (Lyrica) 50 mg BID PO Last administered on 02/07/17 08:27; Admin Dose 50 MG; Start 02/05/17 at 09:00 RAUL NAGEL MD Feb 07, 2017 11:35
[2017-02-07 20:38] VITALS: BP 122/74; PULSE 68; RESP 18
[2017-02-08] MEDS: D5W-0.45 NACL + KCL 20 MEQ 1,000 ML IV SCH ×3 (02:41→22:54)
[2017-02-08] MEDS: CEFAZOLIN 2 GM/50 ML (PMX) 50 ML IVPB SCH ×3 (05:15→21:57)
[2017-02-08] MEDS: PANTOPRAZOLE (EC) 40 MG TAB PO SCH ×2 (05:15→18:34)
[2017-02-08 06:02] LABS: ADD SCAN DIFF NO; BASOPHILS % 0.3 % (0.0-2.0); EOSINOPHILS # 0.6 10^3/ul (0.0-0.5); EOSINOPHILS % 7.9 % (0.0-7.0); HEMATOCRIT 33.3 % (37.0-47.0); HEMOGLOBIN 10.5 g/dl (12.0-16.0); LYMPHOCYTES # 1.2 10^3/ul (0.8-2.9); LYMPHOCYTES % 15.5 % (15.0-51.0); MEAN CORPUSCULAR HEMOGLOBIN 26.8 pg (29.0-33.0); MEAN CORPUSCULAR HGB CONC 31.5 g/dl (32.0-37.0); MEAN CORPUSCULAR VOLUME 84.9 fl (82.0-101.0); MEAN PLATELET VOLUME 8.9 fl (7.4-10.4); MONOCYTE # 0.5 10^3/ul (0.3-0.9); MONOCYTES % 6.8 % (0.0-11.0); NEUTROPHIL # 5.5 10^3/ul (1.6-7.5); PLATELET COUNT 239 10^3/UL (140-415); RED BLOOD COUNT 3.92 10^6/ul (4.20-5.40); RED CELL DISTRIBUTION WIDTH 15.9 % (11.5-14.5); WHITE BLOOD COUNT 7.9 10^3/ul (4.8-10.8)
[2017-02-08 06:34] LABS: INR 1.12; POTASSIUM 3.6 mmol/L (3.5-5.1); PROTIME 14.4 Sec (12.2-14.2); PT RATIO 1.1
[2017-02-08 06:36] LABS: CREATININE 0.66 mg/dl (0.44-1.00)
[2017-02-08 06:37] LABS: CALCIUM 9.5 mg/dl (8.4-10.2)
[2017-02-08 08:11] VITALS: BP 144/66; RESP 16
[2017-02-08] MEDS: DOCUSATE SODIUM 100 MG CAP PO SCH ×2 (09:00→20:18)
[2017-02-08] MEDS: ASPIRIN (EC) 325 MG TAB PO SCH ×2 (09:07→20:18)
[2017-02-08] MEDS: HYDROCHLOROTHIAZIDE 12.5 MG CAP PO SCH (09:08)
--- NOTE | 2017-02-08 10:17 | PN ---
Date/Time of Note Date/Time of Note DATE: 02/08/17 TIME: 10:15 Assessment/Plan Lines/Catheters IV Catheter Type (from Nrsg): Saline Lock [place] in Place (from Nrsg): No Assessment/Plan Chief Complaint/Hosp Course POD # 4. Stable. -Continue drains -Continue ABX until drains removed -OOB with PT with knee immobilizer -No knee ROM -ASA/SCDs Problems: Subjective 24 Hr Interval Summary Resting comfortably. Walked with PT today. Pain well controlled. Exam/Review of Systems Vital Signs Vitals Vital Signs Date Time Temp Pulse Resp B/P Pulse Ox O2 Delivery O2 Flow Rate FiO2 02/08/17 08:11 98.7 86 16 144/66 95 02/07/17 20:38 Room Air 02/05/17 21:10 2.0 02/05/17 17:39 21 Intake and Output 02/07/17 02/07/17 02/08/17 15:00 23:00 07:00 Intake Total 650 ml 1400 ml 600 ml Output Total 1000 ml 1285 ml Balance 650 ml 400 ml -685 ml Exam Free Text/Dictation Drain 1: 60 cc Drain 2: 80 cc Drain 3: [address] 5/5 Tibialis Anterior, EHL, Gastroc Soleus, Peroneals Normal sensation Palpable DP/PT, CR < 2 Sec No distal edema Results Result Diagram: 02/08/17 0448 02/08/17 0448 DG HERNÁNDEZ MD Feb 08, 2017 10:17
[2017-02-08] MEDS: PREGABALIN 25 MG CAP PO SCH ×2 (10:25→20:18)
--- NOTE | 2017-02-08 11:40 | PN ---
Date/Time of Note Date/Time of Note DATE: 02/08/17 TIME: 11:38 Assessment/Plan VTE Prophylaxis VTE Prophylaxis Intervention: other Lines/Catheters IV [facility]ter Type (from [facility]): Saline Lock Urinary Cath still in place: No Assessment/Plan Chief Complaint/Hosp Course ASSESSMENT AND PLAN: 1. Right knee periprosthetic femur fracture around a total knee arthroplasty. S/p Revision right total knee arthroplasty with distal femoral replacement and Medial gastrocnemius flap. Postop care and physical therapy per orthopedic surgery team. Continue pain medication 2. Hypertension. Will continue the patient's hydrochlorothiazide. She is also on hydralazine p.r.n. for systolic greater than 160. 3. History of arthritis. Continue current medications. 4. Anemia. Stable, follow up with orthopedic surgeon regarding transfusion We will continue to follow along with you. Encourage use of incentive spirometer Physical therapy as per orthopedic surgeon Problems: Subjective 24 Hr Interval Summary Free Text/Dictation Denies any chest pain or shortness of breath Denies any abdominal discomfort Minimal right knee discomfort Drain in place Exam/Review of Systems Vital Signs Vitals Vital Signs Date Time Temp Pulse Resp B/P Pulse Ox O2 Delivery O2 Flow Rate FiO2 02/08/17 08:11 98.7 86 16 144/66 95 02/07/17 20:38 Room Air 02/05/17 21:10 2.0 02/05/17 17:39 21 Intake and Output 02/07/17 02/07/17 02/08/17 15:00 23:00 07:00 Intake Total 650 ml 1400 ml 600 ml Output Total 1000 ml 1285 ml Balance 650 ml 400 ml -685 ml Exam General: The patient is well-developed, Not in acute distress. HEENT: Atraumatic, normocephalic. The pupils are equal and round . Neck: Supple with full range of motion. Chest: Normal expansion of the thorax during inspiration Lungs: Clear to auscultation bilaterally Heart: Normal S1-S2, Regular rhythm and rate. Abdomen: Soft , nontender, nondistended , bowel sounds are present. Extremities: Right knee in dry dressing, drain in place 3, no edema no cyanosis Neurologic: Normal mental status,The patient is awake, alert and oriented . Results Result Diagram: 02/08/17 0448 02/08/17 0448 Results 24 hrs Laboratory Tests Test 02/08/17 04:48 White Blood Count 7.9 Red Blood Count 3.92 L Hemoglobin 10.5 L Hematocrit 33.3 L Mean Corpuscular Volume 84.9 Mean Corpuscular Hemoglobin 26.8 L Mean Corpuscular Hemoglobin Concent 31.5 L Red Cell Distribution Width 15.9 H Platelet Count 239 # Mean Platelet Volume 8.9 Neutrophils % 69.0 Lymphocytes % 15.5 Monocytes % 6.8 Eosinophils % 7.9 H Basophils % 0.3 Nucleated Red Blood Cells % 0.0 Neutrophils # 5.5 Lymphocytes # 1.2 Monocytes # 0.5 Eosinophils # 0.6 H Basophils # 0.0 Nucleated Red Blood Cells # 0.0 Prothrombin Time 14.4 H Prothrombin Time Ratio 1.1 INR International Normalized Ratio 1.12 Sodium Level 134 L Potassium Level 3.6 Chloride Level 95 L Carbon Dioxide Level 33 H Anion Gap 10 Blood Urea Nitrogen 11 Creatinine 0.66 Glucose Level 116 Calcium Level 9.5 Medications Medications Current Medications Hydralazine HCl (Apresoline) 10 mg Q6H PRN IV ELEVATED BLOOD PRESSURE; Start at 20:30 Hydrochlorothiazide 12.5 mg 12.5 mg DAILY PO Last administered on 02/08/17 09: 08; Admin Dose 12.5 MG; Start 02/03/17 at 09:00 Potassium Chloride/Dextrose/ Sod Cl (D5-1/2ns + KCl 20 Meq) 1,000 ml @ 100 mls/ hr Q10H IV Last administered on 02/06/17 11:16; Admin Dose 100 MLS/HR; Start 02/04/17 at 12:30 Oxycodone HCl (Roxicodone) 5 mg Q4H PRN PO PAIN LEVEL 1-3; Start 02/04/17 at 23 :00 Oxycodone HCl (Roxicodone) 10 mg Q4H PRN PO PAIN LEVEL 4-7; Start 02/04/17 at 23:00 Hydromorphone HCl (Dilaudid) 1 mg Q3H PRN IV PAIN LEVEL 8-10; Start 02/04/17 at 23:00 Ondansetron HCl (Zofran Inj) 4 mg Q6H PRN IV NAUSEA AND/OR VOMITING; Start at 23:00 Bisacodyl (Dulcolax Supp) 10 mg Q12H PRN [place] CONSTIPATION; Start 02/04/17 at 23: 00 Magnesium Hydroxide (Milk Of Mag) 30 ml BID PRN PO CONSTIPATION Last administered on 02/07/17 04:10; Admin Dose 30 ML; Start 02/04/17 at 23:00 Sodium Biphosphate/ Sodium Phosphate (Fleet Enema) 133 ml DAILY PRN [place] CONSTIPATION; Start 02/04/17 at 23:00 Docusate Sodium (Colace) 100 mg BID PO Last administered on 02/07/17 08:27; Admin Dose 100 MG; Start 02/04/17 at 21:00 Diphenhydramine HCl (Benadryl) 25 mg Q6H PRN PO PRURITUS; Start 02/04/17 at 23: 00 Aspirin (Ecotrin) 325 mg BID PO Last administered on 02/08/17 09:07; Admin Dose 325 MG; Start 02/05/17 at 09:00 Pantoprazole (Protonix Tab) 40 mg BID@06,18 PO Last administered on 02/08/17 05:15; Admin Dose 40 MG; Start 02/05/17 at 06:00 Pregabalin 50 mg 50 mg BID PO Last administered on 02/08/17 10:25; Admin Dose 50 MG; Start 02/05/17 at 09:00 Cefazolin Sodium/ Dextrose (Ancef 2 Gm/50 ml (Pmx)) 50 ml @ 100 mls/hr Q8 IVPB Last administered on 02/08/17 05:15; Admin Dose 100 MLS/HR; Start 02/07/17 at 22:00; Stop 02/10/17 at 09:00 RAUL NAGEL MD Feb 08, 2017 11:40
[2017-02-08 19:24] VITALS: BP 124/68; RESP 20
[2017-02-08 20:23] VITALS: BP 124/68; PULSE 67; RESP 18
[2017-02-09 05:01] LABS: ADD SCAN DIFF NO
[2017-02-09 05:16] LABS: BASOPHILS % 0.3 % (0.0-2.0); EOSINOPHILS # 0.6 10^3/ul (0.0-0.5); EOSINOPHILS % 8.5 % (0.0-7.0); HEMOGLOBIN 9.4 g/dl (12.0-16.0); LYMPHOCYTES % 15.7 % (15.0-51.0); MEAN CORPUSCULAR HEMOGLOBIN 27.5 pg (29.0-33.0); MEAN CORPUSCULAR HGB CONC 32.4 g/dl (32.0-37.0); MEAN CORPUSCULAR VOLUME 84.8 fl (82.0-101.0); MEAN PLATELET VOLUME 8.3 fl (7.4-10.4); MONOCYTE # 0.4 10^3/ul (0.3-0.9); MONOCYTES % 6.6 % (0.0-11.0); NEUTROPHIL # 4.4 10^3/ul (1.6-7.5); NEUTROPHILS % 68.4 % (39.0-77.0); PLATELET COUNT 208 10^3/UL (140-415); RED BLOOD COUNT 3.42 10^6/ul (4.20-5.40); RED CELL DISTRIBUTION WIDTH 15.2 % (11.5-14.5); WHITE BLOOD COUNT 6.5 10^3/ul (4.8-10.8)
[2017-02-09 05:21] LABS: INR 1.09; PROTIME 14.1 Sec (12.2-14.2); PT RATIO 1.1
[2017-02-09 05:23] LABS: CREATININE 0.57 mg/dl (0.44-1.00)
[2017-02-09 05:24] LABS: CALCIUM 8.6 mg/dl (8.4-10.2)
[2017-02-09 05:38] LABS: POTASSIUM 2.8 mmol/L (3.5-5.1)
[2017-02-09] MEDS: CEFAZOLIN 2 GM/50 ML (PMX) 50 ML IVPB SCH ×4 (05:58→22:43)
[2017-02-09] MEDS: PANTOPRAZOLE (EC) 40 MG TAB PO SCH ×2 (05:59→18:02)
[2017-02-09] MEDS: POTASSIUM CHLORIDE (SR) 20 MEQ TAB PO SCH ×2 (05:59→09:03)
[2017-02-09 07:39] VITALS: BP 125/64; RESP 14
[2017-02-09] MEDS: HYDROCHLOROTHIAZIDE 12.5 MG CAP PO SCH (09:03)
[2017-02-09] MEDS: ASPIRIN (EC) 325 MG TAB PO SCH ×2 (09:03→21:55)
[2017-02-09] MEDS: PREGABALIN 25 MG CAP PO SCH ×2 (09:03→21:57)
[2017-02-09] MEDS: DOCUSATE SODIUM 100 MG CAP PO SCH ×2 (09:03→21:55)
[2017-02-09] MEDS: D5W-0.45 NACL + KCL 20 MEQ 1,000 ML IV SCH ×2 (09:10→19:10)
--- NOTE | 2017-02-09 10:15 | PN ---
Date/Time of Note Date/Time of Note DATE: 02/09/17 TIME: 10:13 Assessment/Plan Lines/Catheters IV Catheter Type (from Nrsg): Saline Lock [place] in Place (from Nrsg): No Assessment/Plan Chief Complaint/Hosp Course POD # 4. Stable. -Continue drains -Continue ABX until drains removed -OOB with PT with knee immobilizer -No knee ROM -ASA/SCDs Problems: Assessment/Plan POD # 5. Stable. -New VAC applied -Continue drains for a few more days -Continue Ancef until drains removed -OOB with PT -Knee immobilizer when OOB -ASA/SCDs Subjective 24 Hr Interval Summary Comfortable. Walked with PT yesterday. VAC leaking. Exam/Review of Systems Vital Signs Vitals Vital Signs Date Time Temp Pulse Resp B/P Pulse Ox O2 Delivery O2 Flow Rate FiO2 02/09/17 07:39 98.0 75 14 125/64 96 02/08/17 20:23 Room Air 02/05/17 21:10 2.0 02/05/17 17:39 21 Intake and Output 02/08/17 02/08/17 02/09/17 15:00 23:00 07:00 Intake Total 1450 ml 750 ml Output Total 70 ml 935 ml Balance 1380 ml -185 ml Exam Free Text/Dictation Drain 1: 35 cc Drain 2: 25 cc Drain 3: 10 cc VAC removed Incisions clean, dry, and intact without redness or drainage 5/5 Tibialis Anterior, EHL, Gastroc Soleus, Peroneals Normal sensation Palpable DP/PT, CR < 2 Sec No distal edema Results Result Diagram: 02/09/17 0431 02/09/17 0431 DG HERNÁNDEZ MD Feb 09, 2017 10:15
--- NOTE | 2017-02-09 11:48 | PN ---
Date/Time of Note Date/Time of Note DATE: 02/09/17 TIME: 11:44 Assessment/Plan VTE Prophylaxis VTE Prophylaxis Intervention: other Lines/Catheters IV C[facility] Type [facility]from [facility] Saline Lock Urinary Cath still in place: No Assessment/Plan Chief Complaint/Hosp Course ASSESSMENT AND PLAN: 1. Right knee periprosthetic femur fracture around a total knee arthroplasty. S/p Revision right total knee arthroplasty with distal femoral replacement and Medial gastrocnemius flap. Postop care and physical therapy per orthopedic surgery team. Continue pain medication 2. Hypertension. Will continue the patient's hydrochlorothiazide. She is also on hydralazine p.r.n. for systolic greater than 160. 3. History of arthritis. Continue current medications. 4. Anemia. Stable, follow up with orthopedic surgeon regarding transfusion We will continue to follow along with you. Encourage use of incentive spirometer Physical therapy as per orthopedic surgeon Problems: Subjective 24 Hr Interval Summary Free Text/Dictation She denies of any chest pain or shortness of breath Ambulate with assistance 50 feet Tolerating oral intake Exam/Review of Systems Vital Signs Vitals Vital Signs Date Time Temp Pulse Resp B/P Pulse Ox O2 Delivery O2 Flow Rate FiO2 02/09/17 07:39 98.0 75 14 125/64 96 02/08/17 20:23 Room Air 02/05/17 21:10 2.0 02/05/17 17:39 21 Intake and Output 02/08/17 02/08/17 02/09/17 15:00 23:00 07:00 Intake Total 1450 ml 750 ml Output Total 70 ml 935 ml Balance 1380 ml -185 ml Exam General: The patient is well-developed, Not in acute distress. HEENT: Atraumatic, normocephalic. The pupils are equal and round . Neck: Supple with full range of motion. Chest: Normal expansion of the thorax during inspiration Lungs: Clear to auscultation bilaterally Heart: Normal S1-S2, Regular rhythm and rate. Abdomen: Soft , nontender, nondistended , bowel sounds are present. Extremities: Surgical site is dry and clean, drain in place 3 , no edema no cyanosis Neurologic: Normal mental status,The patient is awake, alert and oriented . Results Result Diagram: 02/09/17 0431 02/09/17 0431 Results 24 hrs Laboratory Tests Test 02/09/17 04:31 White Blood Count 6.5 Red Blood Count 3.42 L Hemoglobin 9.4 L Hematocrit 29.0 L Mean Corpuscular Volume 84.8 Mean Corpuscular Hemoglobin 27.5 L Mean Corpuscular Hemoglobin Concent 32.4 Red Cell Distribution Width 15.2 H Platelet Count 208 Mean Platelet Volume 8.3 Neutrophils % 68.4 Lymphocytes % 15.7 Monocytes % 6.6 Eosinophils % 8.5 H Basophils % 0.3 Nucleated Red Blood Cells % 0.0 Neutrophils # 4.4 Lymphocytes # 1.0 Monocytes # 0.4 Eosinophils # 0.6 H Basophils # 0.0 Nucleated Red Blood Cells # 0.0 Prothrombin Time 14.1 Prothrombin Time Ratio 1.1 INR International Normalized Ratio 1.09 Sodium Level 133 L Potassium Level 2.8 *L Chloride Level 95 L Carbon Dioxide Level 32 H Anion Gap 9 Blood Urea Nitrogen 10 Creatinine 0.57 Glucose Level 119 Calcium Level 8.6 Medications Medications Current Medications Hydralazine HCl (Apresoline) 10 mg Q6H PRN IV ELEVATED BLOOD PRESSURE; Start at 20:30 Hydrochlorothiazide 12.5 mg 12.5 mg DAILY PO Last administered on 02/09/17 09: 03; Admin Dose 12.5 MG; Start 02/03/17 at 09:00 Potassium Chloride/Dextrose/ Sod Cl (D5-1/2ns + KCl 20 Meq) 1,000 ml @ 100 mls/ hr Q10H IV Last administered on 02/06/17 11:16; Admin Dose 100 MLS/HR; Start 02/04/17 at 12:30 Oxycodone HCl (Roxicodone) 5 mg Q4H PRN PO PAIN LEVEL 1-3; Start 02/04/17 at 23 :00 Oxycodone HCl (Roxicodone) 10 mg Q4H PRN PO PAIN LEVEL 4-7; Start 02/04/17 at 23:00 Hydromorphone HCl (Dilaudid) 1 mg Q3H PRN IV PAIN LEVEL 8-10; Start 02/04/17 at 23:00 Ondansetron HCl (Zofran Inj) 4 mg Q6H PRN IV NAUSEA AND/OR VOMITING; Start at 23:00 Bisacodyl (Dulcolax Supp) 10 mg Q12H PRN [place] CONSTIPATION; Start 02/04/17 at 23: 00 Magnesium Hydroxide (Milk Of Mag) 30 ml BID PRN PO CONSTIPATION Last administered on 02/07/17 04:10; Admin Dose 30 ML; Start 02/04/17 at 23:00 Sodium Biphosphate/ Sodium Phosphate (Fleet Enema) 133 ml DAILY PRN [place] CONSTIPATION; Start 02/04/17 at 23:00 Docusate Sodium (Colace) 100 mg BID PO Last administered on 02/09/17 09:03; Admin Dose 100 MG; Start 02/04/17 at 21:00 Diphenhydramine HCl (Benadryl) 25 mg Q6H PRN PO PRURITUS; Start 02/04/17 at 23: 00 Aspirin (Ecotrin) 325 mg BID PO Last administered on 02/09/17 09:03; Admin Dose 325 MG; Start 02/05/17 at 09:00 Pantoprazole (Protonix Tab) 40 mg BID@06,18 PO Last administered on 02/09/17 05:59; Admin Dose 40 MG; Start 02/05/17 at 06:00 Pregabalin 50 mg 50 mg BID PO Last administered on 02/09/17 09:03; Admin Dose 50 MG; Start 02/05/17 at 09:00 Cefazolin Sodium/ Dextrose (Ancef 2 Gm/50 ml (Pmx)) 50 ml @ 100 mls/hr Q8 IVPB Last administered on 02/09/17 05:58; Admin Dose 100 MLS/HR; Start 02/07/17 at 22:00; Stop 02/10/17 at 09:00 RAUL NAGEL MD Feb 09, 2017 11:48
[2017-02-09 19:33] VITALS: BP 120/62; RESP 20
[2017-02-09] MEDS: oxyCODONE 5 MG TAB PO PRN (22:43)
[2017-02-10] MEDS: D5W-0.45 NACL + KCL 20 MEQ 1,000 ML IV SCH ×2 (04:10→15:10)
[2017-02-10] MEDS: PANTOPRAZOLE (EC) 40 MG TAB PO SCH ×2 (05:30→18:22)
[2017-02-10] MEDS: CEFAZOLIN 2 GM/50 ML (PMX) 50 ML IVPB SCH ×3 (05:30→21:51)
[2017-02-10 05:54] LABS: HEMATOCRIT 28.3 % (37.0-47.0)
[2017-02-10 07:51] VITALS: BP 148/76; RESP 18
[2017-02-10] MEDS: DOCUSATE SODIUM 100 MG CAP PO SCH ×2 (08:33→21:47)
[2017-02-10] MEDS: PREGABALIN 25 MG CAP PO SCH ×2 (08:33→21:51)
[2017-02-10] MEDS: ASPIRIN (EC) 325 MG TAB PO SCH ×2 (08:33→21:47)
[2017-02-10] MEDS: HYDROCHLOROTHIAZIDE 12.5 MG CAP PO SCH (08:34)
[2017-02-10] MEDS: oxyCODONE 5 MG TAB PO PRN ×3 (08:42→21:48)
--- NOTE | 2017-02-10 08:43 | PN ---
Date/Time of Note Date/Time of Note DATE: 02/10/17 TIME: 08:40 Assessment/Plan Lines/Catheters IV Catheter Type (from Nrsg): Saline Lock [place] in Place (from Nrsg): No Assessment/Plan Assessment/Plan Stable POD #6, s/p revision right TKA with distal femoral replacement -continue ancef until drains removed -ASA/SCDs for DVT prophylaxis -monitor drains -OOB with PT -ARU evaluation -discharge planning Subjective 24 Hr Interval Summary No acute overnight events. Denies significant pain. Progressing well with PT. Wound vac changed yesterday. Denies f/c. VSS, afebrile. Would like ARU eval today. Exam/Review of Systems Vital Signs Vitals Vital Signs Date Time Temp Pulse Resp B/P Pulse Ox O2 Delivery O2 Flow Rate FiO2 02/10/17 07:51 98.3 78 18 148/76 98 02/08/17 20:23 Room Air Intake and Output 02/09/17 02/09/17 02/10/17 15:00 23:00 07:00 Intake Total 50 ml 850 ml 700 ml Output Total 35 ml 945 ml 830 ml Balance 15 ml -95 ml -130 ml Exam Free Text/Dictation Drain Total: 160cc Dressing dry Incision clean, dry, and intact without redness or drainage Thigh soft 5/5 Quadriceps, Tibialis Anterior, EHL, Gastroc, Soleus, Peroneals Normal sensation Palpable DT/PT, CR <2 sec No distal edema Results Result Diagram: 02/10/17 0500 02/09/17 1346 VICKI SOLO PA-C Feb 10, 2017 08:43
--- NOTE | 2017-02-10 16:21 | PN ---
Date/Time of Note Date/Time of Note DATE: 02/10/17 TIME: 16:18 Assessment/Plan VTE Prophylaxis VTE Prophylaxis Intervention: other (on aspirin per surgeon) Lines/Catheters IV Catheter Type (from Nrs): Saline Lock Urinary Cath still in place: No Assessment/Plan Chief Complaint/Hosp Course Assessment and plan 1. Right knee have prosthetic femur fracture status post revision. Continue postop care. Continue with analgesics. Wound care per surgeon 2. Essential hypertension. Continue antihypertensives and adjust needed 3. Anemia. Status post surgery. H&H stable. We'll monitor Disposition and plan: Continue with physical therapy and analgesics. Per patient request Gregoria added to assist with sleep. Tentative plan for ARU. We' ll follow-up Discussed plan of care with Dr. Miles Problems: Subjective 24 Hr Interval Summary Free Text/Dictation Comfortable at present. No apparent distress seen. Exam/Review of Systems Vital Signs Vitals Vital Signs Date Time Temp Pulse Resp B/P Pulse Ox O2 Delivery O2 Flow Rate FiO2 02/10/17 07:51 98.3 78 18 148/76 98 02/08/17 20:23 Room Air Intake and Output 02/09/17 02/09/17 02/10/17 15:00 23:00 07:00 Intake Total 50 ml 850 ml 700 ml Output Total 35 ml 945 ml 830 ml Balance 15 ml -95 ml -130 ml Exam General: No acute signs or symptoms of distress Eyes: pupils equal round, Anicteric sclera Neck: Supple nontender, no JVD Cardiac: S1, S2 auscultated, regular rhythm and rate Pulmonary: No coarse rhonchi or breathing auscultated GI: Abdomen soft nontender nondistended, bowel sounds active Extremities: No edema bilateral lower extremities Skin: Surgical site right lower extremity clean dry and intact. noted with ROLAND bulb and accordion drain Neurologic: Alert to person place and time and situation Results Result Diagram: 02/10/17 0500 02/09/17 1346 Results 24 hrs Laboratory Tests Test 02/10/17 05:00 Hemoglobin 9.0 L Hematocrit 28.3 L Medications Medications Current Medications Hydralazine HCl (Apresoline) 10 mg Q6H PRN IV ELEVATED BLOOD PRESSURE; Start at 20:30 Hydrochlorothiazide 12.5 mg 12.5 mg DAILY PO Last administered on 02/10/17t 08: 34; Admin Dose 12.5 MG; Start 02/03/17 at 09:00 Potassium Chloride/Dextrose/ Sod Cl (D5-1/2ns + KCl 20 Meq) 1,000 ml @ 100 mls/ hr Q10H IV Last administered on 02/06/17 11:16; Admin Dose 100 MLS/HR; Start 02/04/17 at 12:30 Oxycodone HCl (Roxicodone) 5 mg Q4H PRN PO PAIN LEVEL 1-3 Last administered on 02/10/17 08:42; Admin Dose 5 MG; Start 02/04/17 at 23:00 Oxycodone HCl (Roxicodone) 10 mg Q4H PRN PO PAIN LEVEL 4-7; Start 02/04/17 at 23:00 Hydromorphone HCl (Dilaudid) 1 mg Q3H PRN IV PAIN LEVEL 8-10; Start 02/04/17 at 23:00 Ondansetron HCl (Zofran Inj) 4 mg Q6H PRN IV NAUSEA AND/OR VOMITING; Start at 23:00 Bisacodyl (Dulcolax Supp) 10 mg Q12H PRN [place] CONSTIPATION; Start 02/04/17 at 23: 00 Magnesium Hydroxide (Milk Of Mag) 30 ml BID PRN PO CONSTIPATION Last administered on 02/07/17 04:10; Admin Dose 30 ML; Start 02/04/17 at 23:00 Sodium Biphosphate/ Sodium Phosphate (Fleet Enema) 133 ml DAILY PRN [place] CONSTIPATION; Start 02/04/17 at 23:00 Docusate Sodium (Colace) 100 mg BID PO Last administered on 02/10/17 08:33; Admin Dose 100 MG; Start 02/04/17 at 21:00 Diphenhydramine HCl (Benadryl) 25 mg Q6H PRN PO PRURITUS; Start 02/04/17 at 23: 00 Aspirin (Ecotrin) 325 mg BID PO Last administered on 02/10/17 08:33; Admin Dose 325 MG; Start 02/05/17 at 09:00 Pantoprazole (Protonix Tab) 40 mg BID@06,18 PO Last administered on 02/10/17 05:30; Admin Dose 40 MG; Start 02/05/17 at 06:00 Pregabalin 50 mg 50 mg BID PO Last administered on 02/10/17 08:33; Admin Dose 50 MG; Start 02/05/17 at 09:00 Cefazolin Sodium/ Dextrose (Ancef 2 Gm/50 ml (Pmx)) 50 ml @ 100 mls/hr Q8 IVPB Last administered on 02/10/17 15:01; Admin Dose 100 MLS/HR; Start 02/10/17 at 14:00; Stop 02/13/17 at 13:59 Zolpidem Tartrate (Ambien) 5 mg HS PRN PO INSOMNIA; Start 02/10/17 at 14:30 MOO RICK Feb 10, 2017 16:20
[2017-02-10 19:12] VITALS: BP 131/89; RESP 18
[2017-02-10] MEDS: ZOLPIDEM 5 MG TAB PO PRN (23:19)
[2017-02-11] MEDS: D5W-0.45 NACL + KCL 20 MEQ 1,000 ML IV SCH ×3 (01:10→21:10)
[2017-02-11 05:25] LABS: HEMATOCRIT 27.2 % (37.0-47.0); HEMOGLOBIN 8.7 g/dl (12.0-16.0)
[2017-02-11] MEDS: PANTOPRAZOLE (EC) 40 MG TAB PO SCH ×2 (05:37→18:33)
[2017-02-11] MEDS: CEFAZOLIN 2 GM/50 ML (PMX) 50 ML IVPB SCH (05:37)
[2017-02-11 08:05] VITALS: BP 135/67; RESP 18
[2017-02-11] MEDS: PREGABALIN 25 MG CAP PO SCH ×2 (09:01→21:08)
[2017-02-11] MEDS: ASPIRIN (EC) 325 MG TAB PO SCH ×2 (09:01→21:08)
[2017-02-11] MEDS: HYDROCHLOROTHIAZIDE 12.5 MG CAP PO SCH (09:02)
[2017-02-11] MEDS: DOCUSATE SODIUM 100 MG CAP PO SCH ×2 (09:02→21:08)
[2017-02-11] MEDS: oxyCODONE 5 MG TAB PO PRN ×2 (09:05→21:09)
--- NOTE | 2017-02-11 10:35 | PN ---
Date/Time of Note Date/Time of Note DATE: 02/11/17 TIME: 10:34 Assessment/Plan Lines/Catheters IV Catheter Type (from Nrsg): Saline Lock [place] in Place (from Nrsg): No Assessment/Plan Assessment/Plan Stable POD #7, s/p revision right TKA with distal femoral replacement, medial gastroc flap -d/c ancef -drains removed -ASA/SCDs for DVT prophylaxis -wound vac changed today -OOB with PT -discharge planning. Will plan to go to ARU tomorrow if accepted Subjective 24 Hr Interval Summary No acute overnight events. Denies significant pain. Progressing with PT. VSS, afebrile. Stable for transfer to ARU when bed available. Exam/Review of Systems Vital Signs Vitals Vital Signs Date Time Temp Pulse Resp B/P Pulse Ox O2 Delivery O2 Flow Rate FiO2 02/11/17 08:05 97.8 80 18 135/67 99 02/08/17 20:23 Room Air Intake and Output 02/10/17 02/10/17 02/11/17 14:59 22:59 06:59 Intake Total 800 ml 550 ml Output Total 1267 ml 55 ml Balance -467 ml 495 ml Exam Free Text/Dictation Drainage Total: 122cc Dressing dry Incision clean, dry, and intact without redness or drainage Thigh soft 5/5 Quadriceps, Tibialis Anterior, EHL, Gastroc, Soleus, Peroneals Normal sensation Palpable DT/PT, CR <2 sec No distal edema Results Result Diagram: 02/11/17 0431 02/09/17 1346 VICKI SOLO PA-C Feb 11, 2017 10:35
--- NOTE | 2017-02-11 15:17 | PN ---
Date/Time of Note Date/Time of Note DATE: 02/11/17 TIME: 15:15 Assessment/Plan VTE Prophylaxis VTE Prophylaxis Intervention: other (aspirin per surgeon) Lines/Catheters IV Catheter Type (from Nrs): Saline Lock Urinary Cath still in place: No Assessment/Plan Chief Complaint/Hosp Course Assessment and plan 1. Right knee have prosthetic femur fracture status post revision. Continue postop care. Continue with analgesics. Continue with wound care. Continue with physical therapy 2. Essential hypertension. Continue antihypertensives and adjust needed 3. Anemia. Status post surgery. H&H stable. We'll monitor. Stable at present Disposition and plan: Tentative plan for ARU transfer. Continue supportive care Discussed plan of care with Dr. Miles Problems: Subjective 24 Hr Interval Summary Free Text/Dictation Sitting in chair. Comfortable at present Exam/Review of Systems Vital Signs Vitals Vital Signs Date Time Temp Pulse Resp B/P Pulse Ox O2 Delivery O2 Flow Rate FiO2 02/11/17 08:05 97.8 80 18 135/67 99 02/08/17 20:23 Room Air Intake and Output 02/10/17 02/10/17 02/11/17 15:00 23:00 07:00 Intake Total 800 ml 550 ml Output Total 1267 ml 55 ml Balance -467 ml 495 ml Exam General: Comfortable. No apparent distress Eyes: Remain equal round. Neck: No JVD Cardiac: Regular rate Pulmonary: No coarse rhonchi or breathing auscultated GI: Abdomen soft nontender nondistended, bowel sounds active Extremities: Right lower extremity in brace. Noted with ROLAND drain Skin: Surgical site right lower extremity clean dry and intact. Still noted with ROLAND bulb and accordion drain Neurologic: Alert to person place and time and situation Results Result Diagram: 02/11/17 0431 02/09/17 1346 Results 24 hrs Laboratory Tests Test 02/11/17 04:31 Hemoglobin 8.7 L Hematocrit 27.2 L Medications Medications Current Medications Hydralazine HCl (Apresoline) 10 mg Q6H PRN IV ELEVATED BLOOD PRESSURE; Start at 20:30 Hydrochlorothiazide 12.5 mg 12.5 mg DAILY PO Last administered on 02/11/17t 09: 02; Admin Dose 12.5 MG; Start 02/03/17 at 09:00 Potassium Chloride/Dextrose/ Sod Cl (D5-1/2ns + KCl 20 Meq) 1,000 ml @ 100 mls/ hr Q10H IV Last administered on 02/06/17 11:16; Admin Dose 100 MLS/HR; Start 02/04/17 at 12:30 Oxycodone HCl (Roxicodone) 5 mg Q4H PRN PO PAIN LEVEL 1-3 Last administered on 02/11/17 09:05; Admin Dose 5 MG; Start 02/04/17 at 23:00 Oxycodone HCl (Roxicodone) 10 mg Q4H PRN PO PAIN LEVEL 4-7; Start 02/04/17 at 23:00 Hydromorphone HCl (Dilaudid) 1 mg Q3H PRN IV PAIN LEVEL 8-10; Start 02/04/17 at 23:00 Ondansetron HCl (Zofran Inj) 4 mg Q6H PRN IV NAUSEA AND/OR VOMITING; Start at 23:00 Bisacodyl (Dulcolax Supp) 10 mg Q12H PRN [place] CONSTIPATION; Start 02/04/17 at 23: 00 Magnesium Hydroxide (Milk Of Mag) 30 ml BID PRN PO CONSTIPATION Last administered on 02/07/17 04:10; Admin Dose 30 ML; Start 02/04/17 at 23:00 Sodium Biphosphate/ Sodium Phosphate (Fleet Enema) 133 ml DAILY PRN [place] CONSTIPATION; Start 02/04/17 at 23:00 Docusate Sodium (Colace) 100 mg BID PO Last administered on 02/11/17 09:02; Admin Dose 100 MG; Start 02/04/17 at 21:00 Diphenhydramine HCl (Benadryl) 25 mg Q6H PRN PO PRURITUS; Start 02/04/17 at 23: 00 Aspirin (Ecotrin) 325 mg BID PO Last administered on 02/11/17 09:01; Admin Dose 325 MG; Start 02/05/17 at 09:00 Pantoprazole (Protonix Tab) 40 mg BID@06,18 PO Last administered on 02/11/17 05:37; Admin Dose 40 MG; Start 02/05/17 at 06:00 Pregabalin (Lyrica) 50 mg BID PO Last administered on 02/11/17 09:01; Admin Dose 50 MG; Start 02/05/17 at 09:00 Zolpidem Tartrate (Ambien) 5 mg HS PRN PO INSOMNIA Last administered on t 23:19; Admin Dose 5 MG; Start 02/10/17 at 14:30 MOO RICK Feb 11, 2017 15:17
[2017-02-11 19:00] VITALS: BP 136/68; RESP 18
[2017-02-11] MEDS: ZOLPIDEM 5 MG TAB PO PRN (22:39)
[2017-02-12] MEDS: PANTOPRAZOLE (EC) 40 MG TAB PO SCH ×2 (05:52→17:10)
[2017-02-12] MEDS: D5W-0.45 NACL + KCL 20 MEQ 1,000 ML IV SCH ×3 (06:39→23:08)
[2017-02-12 08:15] LABS: POTASSIUM 3.4 mmol/L (3.5-5.1)
[2017-02-12 08:18] LABS: CREATININE 0.58 mg/dl (0.44-1.00)
[2017-02-12 08:19] LABS: CALCIUM 8.8 mg/dl (8.4-10.2)
[2017-02-12 08:22] VITALS: BP 135/71; RESP 16
--- NOTE | 2017-02-12 08:34 | PDOCDIS ---
Discharge Instructions DIAGNOSIS Discharge Diagnosis: s/p revision right TKA, distal femoral replacement, medial gastroc flap CONDITION Patient Condition: Fair HOME CARE INSTRUCTIONS: Diet Instructions: RegularSpecial Diet: regular ACTIVITY: Activity Restrictions: Slowly Increase Activity Rest between Activity Avoid heavy lifting Do not Drive Do not operate Machinery Do not operate Power Tool Avoid Heavy Housework Bathing Restrictions: Shower FOLLOW UP/APPOINTMENTS Appointments follow up in the office in 1 week OTHER ORDERS: Other Orders: S/P revision, TKA, distal femoral replacement Physical Therapy: Three times per week at home x 2 weeks Daily in Rehab/SNF WB STATUS: WBAT 1. Strengthening exercises for both upper and un-operated lower extremities. 2. Gait training with front wheeled walker 3. Active range of motion exercises to operative knee. 4. When not working on knee range of motion exercises, distal towel roll under operative ankle/distal calf to promote full extension. 5. DO NOT PUT ANYTHING BEHIND OPERATIVE KNEE!!! 6. Quadriceps and hamstring strengthening. 7. May switch to cane in contra lateral hand 6 weeks after surgery. 8. Physical Therapy can open case if nursing is not available. 9. Use Ice Machine as instructed from date of surgery while at rest 3X/day. 10. Patient requires mobile SCDs to reduce risk of developing DVT following TKA. Patient will use the mobile SCDs for 30 days postoperatively. Bathing assistance by home health aide twice weekly if Medicare patient. Occupational Therapy: Evaluation for assistive devices and ADL training. Wound Care: Keep incision dry & covered with Tegaderm until first visit with Dr. Seo Anticoagulation Orders: Enteric Coated Aspirin 325 mg po bid x 6 weeks from date of surgery Follow-up:Call for an appointment with Dr. Seo in 1 week after discharged from hospital at DME Orders: FWW, 3-in-1 Commode, Polar ice machine, Mobile SCDs VICKI SOLO PA-C Feb 12, 2017 08:34
[2017-02-12] MEDS ORDERED: PANT40TA4 PO (08:35)
[2017-02-12] MEDS ORDERED: ASPI325T32 PO (08:35)
[2017-02-12] MEDS ORDERED: LYRI25 PO (08:35)
[2017-02-12] MEDS ORDERED: OXYC-481 PO (08:35)
[2017-02-12] MEDS: ASPIRIN (EC) 325 MG TAB PO SCH ×2 (08:48→21:29)
[2017-02-12] MEDS: HYDROCHLOROTHIAZIDE 12.5 MG CAP PO SCH (08:48)
[2017-02-12] MEDS: DOCUSATE SODIUM 100 MG CAP PO SCH ×2 (08:48→21:29)
[2017-02-12] MEDS: PREGABALIN 25 MG CAP PO SCH (08:54)
[2017-02-12] MEDS: oxyCODONE 5 MG TAB PO PRN ×3 (08:54→21:34)
--- NOTE | 2017-02-12 08:56 | PN ---
Date/Time of Note Date/Time of Note DATE: 02/12/17 TIME: 08:54 Assessment/Plan Lines/Catheters IV Catheter Type (from Nrsg): Saline Lock [place] in Place (from Nrsg): No Assessment/Plan Assessment/Plan Stable POD #8, s/p revision right TKA with distal femoral replacement, medial gastroc flap -ASA/SCDs for DVT prophylaxis -pain meds as needed -OOB with PT -discharge planning. Will plan to go to ARU today Subjective 24 Hr Interval Summary No acute overnight events. Pain better controlled. Progressing with PT. Was accepted at ARU and will plan to transfer there today. Exam/Review of Systems Vital Signs Vitals Vital Signs Date Time Temp Pulse Resp B/P Pulse Ox O2 Delivery O2 Flow Rate FiO2 02/12/17 08:22 98.2 85 16 135/71 96 02/08/17 20:23 Room Air Intake and Output 02/11/17 02/11/17 02/12/17 14:59 22:59 06:59 Intake Total 900 ml 600 ml Output Total 1300 ml Balance -400 ml 600 ml Exam Free Text/Dictation Dressing dry Incision clean, dry, and intact without redness or drainage Thigh soft 5/5 Quadriceps, Tibialis Anterior, EHL, Gastroc, Soleus, Peroneals Normal sensation Palpable DT/PT, CR <2 sec No distal edema Results Result Diagram: 02/11/17 0431 02/12/17 0731 VICKI SLOO PA-C Feb 12, 2017 08:56
--- NOTE | 2017-02-12 10:38 | PN ---
Date/Time of Note Date/Time of Note DATE: 02/12/17 TIME: 10:36 Assessment/Plan VTE Prophylaxis VTE Prophylaxis Intervention: SCD's (aspirin per orthopedic surgeon), other Lines/Catheters [facility] Saline Lock Urinary Cath still in place: No Assessment/Plan Chief Complaint/Hosp Course Assessment and plan 1. Right knee have prosthetic femur fracture status post revision. Continue postop care. Continue with analgesics. Continue with wound care. Continue with physical therapy 2. Essential hypertension. Continue antihypertensives and adjust needed. stable 3. Anemia. Status post surgery. H&H stable. We'll monitor. Stable at present Disposition and plan: discharge planning. Plan for ARU transfer Discussed plan of care with Dr. Miles Problems: Subjective 24 Hr Interval Summary Free Text/Dictation comfortable at present. no s/s of distress Exam/Review of Systems Vital Signs Vitals Vital Signs Date Time Temp Pulse Resp B/P Pulse Ox O2 Delivery O2 Flow Rate FiO2 02/12/17 08:22 98.2 85 16 135/71 96 02/08/17 20:23 Room Air Intake and Output 02/11/17 02/11/17 02/12/17 15:00 23:00 07:00 Intake Total 900 ml 600 ml Output Total 1300 ml Balance -400 ml 600 ml Exam General: Comfortable. No apparent distress Eyes: anicteric sclerae Neck: No JVD Cardiac: Regular rate Pulmonary: no adventitious lung sounds GI: soft, nontender Extremities: RLE surgical site cdi Neurologic: Alert to person place and time and situation Results Result Diagram: 02/11/17 0431 02/12/17 0731 Results 24 hrs Laboratory Tests Test 02/12/17 07:31 Sodium Level 133 L Potassium Level 3.4 L Chloride Level 98 Carbon Dioxide Level 33 H Anion Gap 5 L Blood Urea Nitrogen 14 Creatinine 0.58 Glucose Level 101 Calcium Level 8.8 Medications Medications Current Medications Hydralazine HCl (Apresoline) 10 mg Q6H PRN IV ELEVATED BLOOD PRESSURE; Start at 20:30 Hydrochlorothiazide 12.5 mg 12.5 mg DAILY PO Last administered on 02/12/17t 08: 48; Admin Dose 12.5 MG; Start 02/03/17 at 09:00 Potassium Chloride/Dextrose/ Sod Cl (D5-1/2ns + KCl 20 Meq) 1,000 ml @ 100 mls/ hr Q10H IV Last administered on 02/06/17 11:16; Admin Dose 100 MLS/HR; Start 02/04/17 at 12:30 Oxycodone HCl (Roxicodone) 5 mg Q4H PRN PO PAIN LEVEL 1-3 Last administered on 02/12/17 08:54; Admin Dose 5 MG; Start 02/04/17 at 23:00 Oxycodone HCl (Roxicodone) 10 mg Q4H PRN PO PAIN LEVEL 4-7; Start 02/04/17 at 23:00 Hydromorphone HCl (Dilaudid) 1 mg Q3H PRN IV PAIN LEVEL 8-10; Start 02/04/17 at 23:00 Ondansetron HCl (Zofran Inj) 4 mg Q6H PRN IV NAUSEA AND/OR VOMITING; Start at 23:00 Bisacodyl (Dulcolax Supp) 10 mg Q12H PRN [place] CONSTIPATION; Start 02/04/17 at 23: 00 Magnesium Hydroxide (Milk Of Mag) 30 ml BID PRN PO CONSTIPATION Last administered on 02/07/17 04:10; Admin Dose 30 ML; Start 02/04/17 at 23:00 Sodium Biphosphate/ Sodium Phosphate (Fleet Enema) 133 ml DAILY PRN [place] CONSTIPATION; Start 02/04/17 at 23:00 Docusate Sodium (Colace) 100 mg BID PO Last administered on 02/12/17 08:48; Admin Dose 100 MG; Start 02/04/17 at 21:00 Diphenhydramine HCl (Benadryl) 25 mg Q6H PRN PO PRURITUS; Start 02/04/17 at 23: 00 Aspirin (Ecotrin) 325 mg BID PO Last administered on 02/12/17 08:48; Admin Dose 325 MG; Start 02/05/17 at 09:00 Pantoprazole (Protonix Tab) 40 mg BID@06,18 PO Last administered on 02/12/17 05:52; Admin Dose 40 MG; Start 02/05/17 at 06:00 Pregabalin (Lyrica) 50 mg BID PO Last administered on 02/12/17 08:54; Admin Dose 50 MG; Start 02/05/17 at 09:00 Zolpidem Tartrate (Ambien) 5 mg HS PRN PO INSOMNIA Last administered on t 22:39; Admin Dose 5 MG; Start 02/10/17 at 14:30 MOO RICK Feb 12, 2017 10:37
--- NOTE | 2017-02-12 12:32 | PN ---
Date/Time of Note Date/Time of Note DATE: 02/12/17 TIME: 12:31 Assessment/Plan Lines/Catheters IV Catheter Type (from Nrs): Saline Lock [place] in Place (from Nrs): No Assessment/Plan Assessment/Plan patient doing well ambulate per orthopedics to rehab when ready Subjective 24 Hr Interval Summary patient doing well, no complaints. going to rehab Exam/Review of Systems Vital Signs Vitals Vital Signs Date Time Temp Pulse Resp B/P Pulse Ox O2 Delivery O2 Flow Rate FiO2 02/12/17 08:22 98.2 85 16 135/71 96 02/08/17 20:23 Room Air Intake and Output 02/11/17 02/11/17 02/12/17 15:00 23:00 07:00 Intake Total 900 ml 600 ml Output Total 1300 ml Balance -400 ml 600 ml Exam Free Text/Dictation leg incisions c/d/i, no erythema Results Result Diagram: 02/11/17 0431 02/12/17 0731 LETITIA JACKSON MD Feb 12, 2017 12:32
[2017-02-12 19:24] VITALS: BP 134/64; RESP 20
[2017-02-12] MEDS: ZOLPIDEM 5 MG TAB PO PRN (21:29)
[2017-02-12] MEDS: PREGABALIN 50 MG CAP PO SCH (21:30)
[2017-02-13] MEDS: oxyCODONE 5 MG TAB PO PRN ×3 (02:02→18:40)
[2017-02-13] MEDS: PANTOPRAZOLE (EC) 40 MG TAB PO SCH ×2 (07:08→18:39)
[2017-02-13 08:01] VITALS: BP 131/69; RESP 18
[2017-02-13] MEDS: DOCUSATE SODIUM 100 MG CAP PO SCH ×2 (08:32→20:30)
[2017-02-13] MEDS: ASPIRIN (EC) 325 MG TAB PO SCH ×2 (08:32→20:29)
[2017-02-13] MEDS: PREGABALIN 50 MG CAP PO SCH ×2 (08:32→20:30)
[2017-02-13] MEDS: HYDROCHLOROTHIAZIDE 12.5 MG CAP PO SCH (08:33)
--- NOTE | 2017-02-13 11:58 | PN ---
Date/Time of Note Date/Time of Note DATE: 02/13/17 TIME: 11:56 Assessment/Plan VTE Prophylaxis VTE Prophylaxis Intervention: SCD's Lines/Catheters IV C[facility] Type (from [facility] Saline Lock Urinary Cath still in place: No Assessment/Plan Chief Complaint/Hosp Course Assessment and plan 1. Right knee have prosthetic femur fracture status post revision. Continue postop care. Continue with analgesics. Continue with wound care. Continue with physical therapy 2. Essential hypertension. Continue antihypertensives and adjust needed. stable 3. Anemia. Status post surgery. H&H stable. We'll monitor. Stable at present Disposition and plan: discharge planning. not accepted to ARU. possible d/c home with HH. cont with surgeon recs Discussed plan of care with Dr. Miles Problems: Subjective 24 Hr Interval Summary Free Text/Dictation comfortable at present. no s/s of distress Exam/Review of Systems Vital Signs Vitals Vital Signs Date Time Temp Pulse Resp B/P Pulse Ox O2 Delivery O2 Flow Rate FiO2 02/13/17 08:01 98.3 75 18 131/69 93 Intake and Output 02/12/17 02/12/17 02/13/17 15:00 23:00 07:00 Intake Total 720 ml 320 ml Output Total 0 ml Balance 720 ml 320 ml Exam General: Comfortable. No apparent distress Eyes: anicteric sclerae Neck: No JVD seen Cardiac: Regular rate still Pulmonary: no adventitious lung sounds GI: soft, nontender Extremities: RLE surgical site cdi today Neurologic: Alert to person place and time and situation Results Result Diagram: 02/11/17 0431 02/12/17 0731 Medications Medications Current Medications Hydralazine HCl (Apresoline) 10 mg Q6H PRN IV ELEVATED BLOOD PRESSURE; Start at 20:30 Hydrochlorothiazide 12.5 mg 12.5 mg DAILY PO Last administered on 02/13/17 08: 33; Admin Dose 12.5 MG; Start 02/03/17 at 09:00 Potassium Chloride/Dextrose/ Sod Cl (D5-1/2ns + KCl 20 Meq) 1,000 ml @ 100 mls/ hr Q10H IV Last administered on 02/06/17 11:16; Admin Dose 100 MLS/HR; Start 02/04/17 at 12:30 Oxycodone HCl (Roxicodone) 5 mg Q4H PRN PO PAIN LEVEL 1-3 Last administered on 02/13/17 09:04; Admin Dose 5 MG; Start 02/04/17 at 23:00 Oxycodone HCl (Roxicodone) 10 mg Q4H PRN PO PAIN LEVEL 4-7; Start 02/04/17 at 23:00 Hydromorphone HCl (Dilaudid) 1 mg Q3H PRN IV PAIN LEVEL 8-10; Start 02/04/17 at 23:00 Ondansetron HCl (Zofran Inj) 4 mg Q6H PRN IV NAUSEA AND/OR VOMITING; Start at 23:00 Bisacodyl (Dulcolax Supp) 10 mg Q12H PRN [place] CONSTIPATION; Start 02/04/17 at 23: 00 Magnesium Hydroxide (Milk Of Mag) 30 ml BID PRN PO CONSTIPATION Last administered on 02/07/17 04:10; Admin Dose 30 ML; Start 02/04/17 at 23:00 Sodium Biphosphate/ Sodium Phosphate (Fleet Enema) 133 ml DAILY PRN [place] CONSTIPATION; Start 02/04/17 at 23:00 Docusate Sodium (Colace) 100 mg BID PO Last administered on 02/13/17 08:32; Admin Dose 100 MG; Start 02/04/17 at 21:00 Diphenhydramine HCl (Benadryl) 25 mg Q6H PRN PO PRURITUS Last administered on 02:00; Admin Dose 25 MG; Start 02/04/17 at 23:00 Aspirin (Ecotrin) 325 mg BID PO Last administered on 02/13/17 08:32; Admin Dose 325 MG; Start 02/05/17 at 09:00 Pantoprazole (Protonix Tab) 40 mg BID@06,18 PO Last administered on 02/13/17 07:08; Admin Dose 40 MG; Start 02/05/17 at 06:00 Zolpidem Tartrate (Ambien) 5 mg HS PRN PO INSOMNIA Last administered on 21:29; Admin Dose 5 MG; Start 02/10/17 at 14:30 Pregabalin (Lyrica) 50 mg BID PO Last administered on 02/13/17 08:32; Admin Dose 50 MG; Start 02/12/17 at 21:00 MOO RICK Feb 13, 2017 11:58
[2017-02-13] MEDS: D5W-0.45 NACL + KCL 20 MEQ 1,000 ML IV SCH ×2 (13:10→23:10)
--- NOTE | 2017-02-13 18:11 | PN ---
Date/Time of Note Date/Time of Note DATE: 02/13/17 TIME: 18:09 Assessment/Plan Lines/Catheters IV Catheter Type (from Nrsg): Saline Lock [place] in Place (from Nrsg): No Assessment/Plan Assessment/Plan Stable POD #9, s/p revision right TKA with distal femoral replacement, medial gastroc flap -ASA/SCDs for DVT prophylaxis -pain meds as needed -OOB with PT -continue using knee immobilizer at all times -will plan to discharge home tomorrow Subjective 24 Hr Interval Summary No acute overnight events. Pain improving. Walked 250 feet with PT. Was ultimately not accepted at ARU due to insurance issues. Also unable to go to SNF due to the patient progressing well with PT. will plan to discharge home tomorrow with home health. Exam/Review of Systems Vital Signs Vitals Vital Signs Date Time Temp Pulse Resp B/P Pulse Ox O2 Delivery O2 Flow Rate FiO2 02/13/17 08:01 98.3 75 18 131/69 93 Intake and Output 02/12/17 02/12/17 02/13/17 15:00 23:00 07:00 Intake Total 720 ml 320 ml Output Total 0 ml Balance 720 ml 320 ml Exam Free Text/Dictation Dressing dry Incision clean, dry, and intact without redness or drainage Thigh soft 5/5 Quadriceps, Tibialis Anterior, EHL, Gastroc, Soleus, Peroneals Normal sensation Palpable DT/PT, CR <2 sec No distal edema Results Result Diagram: 02/11/17 0431 02/12/17 0731 VICKI SOLO PA-C Feb 13, 2017 18:11
[2017-02-13 19:29] VITALS: BP 130/67; RESP 18
[2017-02-13] MEDS: ZOLPIDEM 5 MG TAB PO PRN (20:30)
[2017-02-14] MEDS: oxyCODONE 5 MG TAB PO PRN ×3 (02:03→14:51)
[2017-02-14] MEDS: PANTOPRAZOLE (EC) 40 MG TAB PO SCH (06:00)
[2017-02-14 07:38] VITALS: BP 133/66; RESP 20
[2017-02-14] MEDS: PREGABALIN 50 MG CAP PO SCH (08:32)
[2017-02-14] MEDS: DOCUSATE SODIUM 100 MG CAP PO SCH (08:33)
[2017-02-14] MEDS: HYDROCHLOROTHIAZIDE 12.5 MG CAP PO SCH (08:33)
[2017-02-14] MEDS: ASPIRIN (EC) 325 MG TAB PO SCH (08:33)
--- NOTE | 2017-02-14 09:01 | PN ---
Date/Time of Note Date/Time of Note DATE: 02/14/17 TIME: 09:00 Assessment/Plan Lines/Catheters IV Catheter Type (from Nrsg): Saline Lock [place] in Place (from Nrsg): No Assessment/Plan Assessment/Plan Stable POD #10, s/p revision right TKA with distal femoral replacement, medial gastroc flap -ASA/SCDs for DVT prophylaxis -pain meds as needed -OOB with PT -continue using knee immobilizer at all times -d/c home today -follow up in the office in 1 week Subjective 24 Hr Interval Summary No acute overnight events. Denies pain. Progressing with PT. Will go home with home health arranged today. Exam/Review of Systems Vital Signs Vitals Vital Signs Date Time Temp Pulse Resp B/P Pulse Ox O2 Delivery O2 Flow Rate FiO2 02/14/17 07:38 97.9 74 20 133/66 99 Intake and Output 02/13/17 02/13/17 02/14/17 15:00 23:00 07:00 Intake Total 840 ml 480 ml Balance 840 ml 480 ml Exam Free Text/Dictation Dressing dry Incision clean, dry, and intact without redness or drainage Thigh soft 5/5 Quadriceps, Tibialis Anterior, EHL, Gastroc, Soleus, Peroneals Normal sensation Palpable DT/PT, CR <2 sec No distal edema Results Result Diagram: 02/11/17 0431 02/12/17 0731 VICKI SOLO PA-C Feb 14, 2017 09:01
[2017-02-14] MEDS: D5W-0.45 NACL + KCL 20 MEQ 1,000 ML IV SCH (09:10)
--- NOTE | 2017-02-14 11:21 | PN ---
Date/Time of Note Date/Time of Note DATE: 02/14/17 TIME: 11:19 Assessment/Plan VTE Prophylaxis VTE Prophylaxis Intervention: other (aspirin per surgeon) Lines/Catheters IV Catheter Type (from Nrs): Saline Lock Urinary Cath still in place: No Assessment/Plan Chief Complaint/Hosp Course Assessment and plan 1. Right knee have prosthetic femur fracture status post revision. Continue postop care. Continue with analgesics. Continue with wound care. Continue with physical therapy. Improving 2. Essential hypertension. Continue antihypertensives and adjust needed. stable 3. Anemia. Status post surgery. H&H stable. We'll monitor. Stable at present Disposition and plan: plan for d/c today. cont supportive care Discussed plan of care with Dr. Miles Problems: Subjective 24 Hr Interval Summary Free Text/Dictation comfortable at present. no apparent distress Exam/Review of Systems Vital Signs Vitals Vital Signs Date Time Temp Pulse Resp B/P Pulse Ox O2 Delivery O2 Flow Rate FiO2 02/14/17 07:38 97.9 74 20 133/66 99 Intake and Output 02/13/17 02/13/17 02/14/17 15:00 23:00 07:00 Intake Total 840 ml 480 ml Balance 840 ml 480 ml Exam General: Comfortable. No apparent distress Eyes: anicteric sclerae Neck: No JVD seen Cardiac: s1, s2 Pulmonary: no adventitious lung sounds GI: soft, nontender Extremities: RLE surgical site cdi today Neurologic: Alert to person place and time and situation Results Result Diagram: 02/11/17 0431 02/12/17 0731 Medications Medications Current Medications Hydralazine HCl (Apresoline) 10 mg Q6H PRN IV ELEVATED BLOOD PRESSURE; Start at 20:30 Hydrochlorothiazide 12.5 mg 12.5 mg DAILY PO Last administered on 02/14/17 08: 33; Admin Dose 12.5 MG; Start 02/03/17 at 09:00 Potassium Chloride/Dextrose/ Sod Cl (D5-1/2ns + KCl 20 Meq) 1,000 ml @ 100 mls/ hr Q10H IV Last administered on 02/06/17 11:16; Admin Dose 100 MLS/HR; Start 02/04/17 at 12:30 Oxycodone HCl (Roxicodone) 5 mg Q4H PRN PO PAIN LEVEL 1-3 Last administered on 02/14/17 08:33; Admin Dose 5 MG; Start 02/04/17 at 23:00 Oxycodone HCl (Roxicodone) 10 mg Q4H PRN PO PAIN LEVEL 4-7; Start 02/04/17 at 23:00 Hydromorphone HCl (Dilaudid) 1 mg Q3H PRN IV PAIN LEVEL 8-10; Start 02/04/17 at 23:00 Ondansetron HCl (Zofran Inj) 4 mg Q6H PRN IV NAUSEA AND/OR VOMITING; Start at 23:00 Bisacodyl (Dulcolax Supp) 10 mg Q12H PRN [place] CONSTIPATION; Start 02/04/17 at 23: 00 Magnesium Hydroxide (Milk Of Mag) 30 ml BID PRN PO CONSTIPATION Last administered on 02/07/17 04:10; Admin Dose 30 ML; Start 02/04/17 at 23:00 Sodium Biphosphate/ Sodium Phosphate (Fleet Enema) 133 ml DAILY PRN [place] CONSTIPATION; Start 02/04/17 at 23:00 Docusate Sodium (Colace) 100 mg BID PO Last administered on 02/14/17 08:33; Admin Dose 100 MG; Start 02/04/17 at 21:00 Diphenhydramine HCl (Benadryl) 25 mg Q6H PRN PO PRURITUS Last administered on 02:00; Admin Dose 25 MG; Start 02/04/17 at 23:00 Aspirin (Ecotrin) 325 mg BID PO Last administered on 02/14/17 08:33; Admin Dose 325 MG; Start 02/05/17 at 09:00 Pantoprazole (Protonix Tab) 40 mg BID@06,18 PO Last administered on 02/14/17 06:00; Admin Dose 40 MG; Start 02/05/17 at 06:00 Zolpidem Tartrate (Ambien) 5 mg HS PRN PO INSOMNIA Last administered on 20:30; Admin Dose 5 MG; Start 02/10/17 at 14:30 Pregabalin (Lyrica) 50 mg BID PO Last administered on 02/14/17 08:32; Admin Dose 50 MG; Start 02/12/17 at 21:00 MOO RICK Feb 14, 2017 11:21
--- NOTE | 2017-02-14 15:13 | DS ---
DATE OF ADMISSION: 02/02/2017 DATE OF DISCHARGE: 02/14/2017 CONDITION ON DISCHARGE: Fair. ADMITTING DIAGNOSIS: Displaced comminuted right supracondylar fracture around a right total knee arthroplasty. DISCHARGE DIAGNOSIS: Status post revision right total knee arthroplasty with distal femoral replacement, medial gastroc flap. PROCEDURE PERFORMED: Revision right total knee arthroplasty with distal femoral replacement and a medial gastroc flap. HOSPITAL COURSE: This is a 76-year-old female who was admitted to the hospital complaining of right knee pain, for which prior she underwent a right total knee arthroplasty by Dr. De León. Prior to admission, she was having progressively worsening pain to the right knee and the inability to walk. X- rays demonstrated a Supracondylar periprosthetic right distal femur fracture. On 02/03/2017, the patient was taken to the operating room where she underwent a revision right total knee arthroplasty with a distal femoral replacement and medial gastroc flap. There were no intraoperative complications. The patient tolerated the procedure well. She was taken to the recovery room in stable condition. Pain was well controlled with oral pain medication. She was started on aspirin and SCDs for DVT prophylaxis. She remained hemodynamically stable and neurovascularly intact throughout her hospital stay. She began physical therapy on postoperative day 1 and continued to make good progress. On postoperative day 10, she was deemed stable for discharge home. Prior to discharge. The incisions were inspected and noted to be clean, dry and intact. Dressing changes were done prior to patient going home. LABORATORY ANALYSIS UPON DISCHARGE: Hemoglobin 8.7, hematocrit 27.2. Chemistry panel was within normal limits. DISCHARGE MEDICATIONS 1. Aspirin 325 mg. 2. Percocet 5/325. 3. Protonix 40 mg. 4. Lyrica 50 mg. 5. Tramadol 50 mg. Additionally, the patient is to resume all of her normal home medications. DISCHARGE INSTRUCTIONS: The patient will be discharged home in stable condition. She will be resuming a normal diet. Activities include weightbearing as tolerated on the right lower extremity with the knee immobilizer on at all times. She will begin physical therapy with home health. She will be discharged home with the medications noted above. She is to resume all her normal home medications. The patient is to call the office or go to the emergency room for any concerns including increased redness, swelling , drainage or fever or any concern regarding the operation or site of incision. FOLLOWUP: The patient to follow up in the office in 1 week. Dictated By: VICKI FALL/CITLALLI Conf#: [id number] DID#: [id number] MTDD
== END 2017-02-14 15:25 | disposition home or self-care (01) | DRG 467 ==
LOC: MS1 18:35
PROVIDERS: ADMIT Orthopaedic Surgery; ATTEND Orthopaedic Surgery
PROC: 0KXS0ZZ Transfer Right Lower Leg Muscle, Open Approach (ICD-10-PCS; 2017-02-02)
PROC: 0SPT0JZ Removal of Synthetic Substitute from Right Knee Joint, Femoral Surface, Open Approach (ICD-10-PCS; 2017-02-04)
PROC: 0SPC09Z Removal of Liner from Right Knee Joint, Open Approach (ICD-10-PCS; 2017-02-04)
PROC: 0SUT09Z Supplement Right Knee Joint, Femoral Surface with Liner, Open Approach (ICD-10-PCS; 2017-02-04)
PROC: 0SRT0J9 Replacement of Right Knee Joint, Femoral Surface with Synthetic Substitute, Cemented, Open Approach (ICD-10-PCS; principal; 2017-02-04 19:00)
DX: M84.451A Pathological fracture, right femur, initial encounter for fracture (principal); M97.11XA Periprosthetic fracture around internal prosthetic right knee joint, initial encounter; D64.9 Anemia, unspecified; I10 Essential (primary) hypertension; M19.90 Unspecified osteoarthritis, unspecified site
CPT/HCPCS: 36430; 71010; 73500; 73550; 73560; 73562; 80048; 81001; 81003; 82270; 84132; 85014; 85018; 85025; 85610; 85730; 86850; 86900; 86901; 86920; 87045; 87070; 87075; 87086; 87102; 87116; 87205; 88304; 88311; 93005; 93970; 97116; 97162; 97167; 97530; C1713; C1776; C9290; J0131; J0171; J0690; J0735; J1170; J1644; J1885; J2175; J2250; J2274; J2370; J2405; J3010; J3370; J3480; J7120; P9016

== ENCOUNTER → 2017-02-21 | Outpatient (CLI) | payer OTHER ==
[~2017-02-21] MED LIST changes: +ASPI325T32 PO; +LYRI25 PO; +OXYC-481 PO; +PANT40TA4 PO
--- NOTE | 2017-02-21 16:58 | HKNOTE ---
DATE OF SERVICE: 02/21/2017 INTERVAL HISTORY: The patient presents today for her first postoperative evaluation. She is 2-1/2 weeks status post revision right total knee arthroplasty with distal femoral replacement and medial gastrocnemius flap. She is doing well overall. She is home with her family and is ambulatory upon initial evaluation today. The patient is walking with a front-wheel walker using a knee immobilizer in place at all times. She denies any significant pain. She has been taking aspirin twice daily for DVT prophylaxis. She denies any fevers or chills. She is doing physical therapy with home health. She presents today for her first postoperative evaluation. PHYSICAL EXAMINATION: Today, she is alert and oriented x4 and in no acute distress. She is ambulating with a walker using a knee immobilizer. Examination of the incision demonstrates it to be clean, dry and intact. There is some irritation secondary to the adhesive. Additionally, the incision on the posterior aspect of her calf muscle her gastrocnemius flap appears well overall, as well. There is no erythema or warmth. There is no significant soft tissue swelling. Compartments are otherwise soft. She is neurovascularly intact distally. IMAGING: X-rays of the right knee were obtained today and reviewed by me. They demonstrate good anatomic alignment of the distal femoral replacement with no fractures or dislocations identified. ASSESSMENT: Almost 3 weeks status post revision right total knee arthroplasty with distal femoral replacement and medial gastrocnemius flap. PLAN: The flor and stitches were removed today and Steri-Strips were applied to both incisions. She is to continue weightbearing using a walker. We did ambulate the patient today, and she no longer needs to use a knee immobilizer. The patient will continue to do physical therapy with home health and transition to an outpatient physical therapy program. She can begin some gentle knee flexion and extension exercises, but should ambulate with her knee locked in extension for the time being. Additionally, she is to continue aspirin twice a day for DVT prophylaxis. We will see her back in 4 weeks for repeat evaluation. The patient is to call the office in the meantime if she has any concerns. Dictated By: VICKI RIVER for DG FALL/CITLALLI Conf#: [id number] DID#: [id number] NGHIA
--- NOTE | 2017-02-21 18:49 | RADRPT ---
PROCEDURE: Right knee radiographs. CLINICAL INDICATION: Right knee pain. Postop. TECHNIQUE: Two views. Frontal and lateral. COMPARISON: 02/04/2017. FINDINGS: There is no fracture or dislocation. Surgical drains have been removed. Posterior skin flor are noted. There is a total right knee revision arthroplasty which appears satisfactory. There is no lytic or blastic lesion. There is no joint effusion. IMPRESSION: 1. Surgical drains removed. 2. Satisfactory postoperative appearance of the right knee. RPTAT: QQ .Сергей Barr MD, MD Date Time Electronically viewed and signed by .Сергей Barr MD, on 02/21/2017 18:48 .R/
== END | disposition home or self-care (01) ==
LOC: HKI 13:38
PROVIDERS: ATTEND Orthopaedic Surgery
DX: Z47.1 Aftercare following joint replacement surgery (principal); Z96.651 Presence of right artificial knee joint

== ENCOUNTER → 2017-03-28 | Outpatient (CLI) | payer OTHER | END | disposition home or self-care (01) | LOC: HKI 13:24 | PROVIDERS: ATTEND Orthopaedic Surgery | DX: Z47.1 Aftercare following joint replacement surgery (principal); Z96.651 Presence of right artificial knee joint ==

== ENCOUNTER → 2017-05-30 | Outpatient (CLI) | payer OTHER ==
--- NOTE | 2017-05-30 14:19 | RADRPT ---
PROCEDURE: Right knee radiographs. CLINICAL INDICATION: Right knee pain. Postop. TECHNIQUE: Three views. Weight bearing. Frontal, lateral, and patellar view. COMPARISON: 02/21/2017. FINDINGS: There is no fracture or dislocation. Medial skin flor have been removed. There is a total right knee arthroplasty which appears satisfactory. There is no lytic or blastic lesion. There is no joint effusion. IMPRESSION: 1. The the skin flor removed. 2. Satisfactory the I cough postoperative appearance of the right knee. RPTAT: QQ .Сергей Barr MD, MD Date Time Electronically viewed and signed by .Сергей Barr MD, MD on 05/30/2017 14:19 .R/
--- NOTE | 2017-05-30 15:52 | RADRPT ---
PROCEDURE: Left knee radiographs. CLINICAL INDICATION: Left knee pain. TECHNIQUE: Four views. Weight bearing. Frontal, lateral, oblique, and patellar view. COMPARISON: No prior studies are available for comparison. FINDINGS: There is no fracture or dislocation. The soft tissues are normal. There are degenerative changes of the left knee with joint space narrowing, osteophytes, subarticula r sclerosis, and deformity. There is no lytic or blastic lesion. There is no radiopaque foreign body. IMPRESSION: 1. Severe degenerative changes of the left knee. 2. No acute abnormality. RPTAT: QQ .Сергей Barr MD, MD Date Time Electronically viewed and signed by .Сергей Barr MD, on 05/30/2017 15:51 .R/
== END | disposition home or self-care (01) ==
LOC: HKI 13:24
PROVIDERS: ATTEND Orthopaedic Surgery
DX: Z47.1 Aftercare following joint replacement surgery (principal); Z96.652 Presence of left artificial knee joint; M17.12 Unilateral primary osteoarthritis, left knee
CPT/HCPCS: 73562; 73564; Z7500; G0463

== ENCOUNTER → 2017-06-27 | Outpatient (CLI) | payer OTHER ==
--- NOTE | 2017-06-27 15:45 | RADRPT ---
PROCEDURE: Limited x-ray of both lower extremities. CLINICAL INDICATION: Bilateral leg pain. TECHNIQUE: Single frontal view of both lower extremities was obtained from the hips to the calves. COMPARISON: Left knee radiographs dated 05/30/2017. FINDINGS: There are mild degenerative changes of the hips with osteophytes noted. There is a right knee total arthroplasty which appears satisfactory. There are severe degenerative changes of the left knee wi th associated varus deformity. IMPRESSION: 1. Mild degenerative changes of both hips. 2. Right knee total arthroplasty. 3. Severe degenerative changes of the left knee. RPTAT: QQ .Сергей Barr MD, MD Date Time Electronically viewed and signed by .Сергей Barr MD, MD on 06/27/2017 15:45 .R/
== END | disposition home or self-care (01) ==
LOC: HKI 10:20
PROVIDERS: ATTEND Orthopaedic Surgery
DX: M25.562 Pain in left knee (principal); M17.12 Unilateral primary osteoarthritis, left knee; Z96.651 Presence of right artificial knee joint
CPT/HCPCS: 77073; Z7500; G0463

== ENCOUNTER 2017-07-03 07:37 | Inpatient (IN) | payer OTHER ==
[2017-07-02 12:33] VITALS: BMI 27.3
[2017-07-03] VITALS (24 sets, daily range): BP systolic 113–169; BP diastolic 58–80; PULSE 52–82; RESP 12–20; Ht 147.3 cm; Wt 59.0 kg
[~2017-07-03] VITALS: Ht 147.3 cm; Wt 59.0 kg
[~2017-07-03 07:37] MED LIST changes: +EPHEDrine SULFATE 50 MG/5 ML SYG ONE; +LOSA25TA5 PO
[2017-07-03] MEDS ORDERED: ETOMIDATE 20 MG INJ ONE (08:21)
[2017-07-03] MEDS ORDERED: CEFAZOLIN 1 GM INJ ONE (08:22)
[2017-07-03] MEDS ORDERED: FENTAnyl 50 MCG/ML VIAL ONE (08:22)
[2017-07-03] MEDS ORDERED: GLYCOPYRROLATE 0.4 MG INJ ONE (08:22)
[2017-07-03] MEDS ORDERED: MIDAZOLAM 1 MG/ML 2 ML INJ ONE (08:22)
[2017-07-03] MEDS ORDERED: ONDANSETRON 4 MG INJ ONE (08:22)
[2017-07-03] MEDS ORDERED: PROPOFOL 20 ML ONE (08:22)
[2017-07-03] MEDS ORDERED: ROCURONIUM 50 MG INJ ONE (08:22)
[2017-07-03] MEDS ORDERED: NEOSTIGMINE 3 MG/3 ML SYRINGE ONE (08:22)
[2017-07-03] MEDS ORDERED: PROPOFOL 100 ML ONE (08:22)
[2017-07-03] MEDS ORDERED: DEXAMETHASONE 4 MG/ML 1 ML INJ ONE ×2 (08:22→08:40)
[2017-07-03] MEDS ORDERED: ONDANSETRON 4 MG IV X 1 DOSE IV SCH (10:00)
[2017-07-03] MEDS ORDERED: CEFAZOLIN 2GM/50 ML (PMX) 50 ML X1 BEFORE INCISION IVPB SCH (10:00)
[2017-07-03] MEDS ORDERED: oxyCODONE (CR) 10 MG TAB [oxyCONTIN] X1 DOSE PO SCH (10:00)
[2017-07-03] MEDS ORDERED: PAIN COCKTAIL-CEFUROXIME IRR SCH ×7 (10:00)
[2017-07-03] MEDS ORDERED: TRANEXAMIC ACID 590 MG in SOD CHLORIDE 0.9% 100 ML IVPB SCH (10:00)
[2017-07-03] MEDS ORDERED: TRANEXAMIC ACID 590 MG in SOD CHLORIDE 0.9% 94.1 ML IV SCH (10:00)
[2017-07-03] MEDS ORDERED: PREGABALIN 300 MG PO X1 PO SCH (10:00)
[2017-07-03] MEDS ORDERED: CELECOXIB 400 MG PO X1 DOSE PO SCH (10:00)
[2017-07-03] MEDS ORDERED: LACTATED RINGER'S 1,000 ML IV SCH (10:00)
[2017-07-03] MEDS ORDERED: EXPAREL NOTE (BUPIVICAINE LIPOSOMAL) XX SCH (10:00)
[2017-07-03] MEDS ORDERED: BUPIVACAINE LIPOSOME/PF 266 MG/20 ML VIAL INFIL SCH (10:00)
[2017-07-03] MEDS ORDERED: traMADOL 50 MG TAB X 1 DOSE PO SCH (10:00)
[2017-07-03] MEDS ORDERED: SODIUM CL BACTERIOSTATIC 30 ML INJ ONE (10:02)
[2017-07-03] MEDS ORDERED: VANCOMYCIN 1 GM INJ ONE (10:02)
[2017-07-03] MEDS ORDERED: POLYMYXIN B 500000 UNIT INJ ONE (10:02)
--- NOTE | 2017-07-03 10:02 | HPN ---
Date/Time of Note Date/Time of Note DATE: 07/03/17 TIME: 10:02 Interval H&P Admission Note Pt. seen H&P reviewed: No system changes No changes from H&P on 07/01/17 by DG Barfield MD Jul 03, 2017 10:02
[2017-07-03] MEDS ORDERED: BACITRACIN 50000 UNITS INJ IRR ONE (11:25)
[2017-07-03] MEDS ORDERED: ALBUTEROL 0.083% (NEB) 2.5 MG/3 ML AMP HHN PRN (11:30)
[2017-07-03] MEDS ORDERED: TRIMETHOBENZAMIDE 100 MG/ML VIAL IM PRN (11:30)
[2017-07-03] MEDS ORDERED: HYDROmorphONE (0.2 MG/ML) 10ML SYG IV PRN ×3 (11:30)
[2017-07-03] MEDS ORDERED: MEPERIDINE 25 MG INJ IV PRN (11:30)
[2017-07-03] MEDS ORDERED: hydrALAzine 20 MG INJ IV PRN (11:30)
[2017-07-03] MEDS ORDERED: OXYCODONE/ACETAMINOPHEN (5/325) TAB PO PRN ×2 (11:30)
[2017-07-03] MEDS ORDERED: DIPHENHYDRAMINE 50 MG INJ IV PRN (11:30)
[2017-07-03] MEDS ORDERED: MIDAZOLAM 1 MG/ML 2 ML INJ IV PRN (11:30)
[2017-07-03] MEDS ORDERED: EPHEDrine SULFATE 50 MG/5 ML SYG IV PRN (11:30)
[2017-07-03] MEDS ORDERED: ONDANSETRON 4 MG INJ IV PRN ×2 (11:30→13:00)
[2017-07-03] MEDS ORDERED: LABETALOL HCL 20MG INJ IV PRN (11:30)
[2017-07-03] MEDS ORDERED: FENTAnyl 50 MCG/ML VIAL IV PRN ×3 (11:30)
[2017-07-03] MEDS ORDERED: IPRATROPIUM (NEB) 0.5 MG/2.5 ML AMP HHN PRN (11:30)
[2017-07-03] MEDS ORDERED: SUGAMMADEX SODIUM 200 MG/2 ML VIAL IV ONE (12:43)
[2017-07-03] MEDS ORDERED: NA PHOSPHATE/BIPHOS 133 ML ENEMA PR PRN (13:00)
[2017-07-03] MEDS ORDERED: DIPHENHYDRAMINE 25 MG CAP PO PRN (13:00)
[2017-07-03] MEDS ORDERED: BISACODYL 10 MG SUPP PR PRN (13:00)
[2017-07-03] MEDS ORDERED: HYDROCODONE/APAP (7.5/325) TAB PO PRN ×2 (13:00)
[2017-07-03] MEDS ORDERED: NACL 0.9% 3 ML SYG IV SCH (13:00)
[2017-07-03] MEDS ORDERED: MAGNESIUM HYDROXIDE 30ML CUP PO PRN (13:00)
[2017-07-03] MEDS ORDERED: ASPIRIN (EC) 325 MG TAB PO ONE (13:00)
[2017-07-03] MEDS ORDERED: HYDROmorphONE 1 MG/ML SYG IV PRN (13:00)
--- NOTE | 2017-07-03 13:05 | OPR ---
Date/Time of Note Date/Time of Note DATE: 07/03/17 TIME: 13:02 Operative Report Procedure Description DATE: 07/03/2017 PREOPERATIVE DIAGNOSIS: Left knee osteoarthritis POSTOPERATIVE DIAGNOSIS: Left knee osteoarthritis OPERATION PERFORMED: Left total knee arthroplasty. SURGEON: Dg Hernández MD NURSE PRACTICAL: Sid Kraus PA-C COMPONENTS USED: DePuy Attune size 3 femoral component, size 3 tibial baseplate , 5 mm polyethylene insert, 32 patellar button ANESTHESIA: Spinal plus general endotracheal intubation, plus periarticular injection ANESTHESIOLOGIST: Familia Seymour M.D. TOURNIQUET TIME: 66 minutes. ESTIMATED BLOOD LOSS: 50 cc INTRAVENOUS FLUIDS: 1,800 cc Crystal SPECIMENS: Bone and soft tissue. DRAINS: Hemovac x1. COMPLICATIONS: None. DISPOSITION: The patient tolerated the procedure well and was taken to the recovery room in stable condition. INDICATIONS: The patient is a 76-year-old woman who has had progressively worsening pain in the left knee with radiographic evidence of severe osteoarthritis and a marketed varus deformity. She has not improved with nonsurgical means of treatment including activity modifications, pain medications, and intra-articular injections. Despite these measures she has had worsening pain. I felt the patient would benefit from a total knee arthroplasty. The risks, benefits, and alternatives of the procedure were explained in detail to the patient. I explained the risks of the surgery to include but not be limited to, bleeding and possible need for blood transfusion; infection; pain; stiffness; neurovascular injury with possible numbness, weakness, and/or paralysis anywhere from the knee down to the toes; fracture; instability; dislocation; wear and/or loosening of the prosthesis and possible need for future revision; blood clots; pulmonary embolism; and anesthetic complications such as heart attack, stroke, GI bleed, pneumonia, and/or . Ample time was allowed for the patient to ask questions, all of which were addressed and answered. The patient understood the risks involved and wished to proceed. Informed consent was signed prior to the procedure. PROCEDURE: The patient's left knee was initialed with a marking pen in the preoperative area to identify the correct operative site. The patient was brought to the operating room and transferred from the [facility] to the operating table where a spinal anesthetic was administered. The patient was then anesthetized and intubated. A Marion catheter was placed. A timeout was performed to confirm that the left leg was the correct operative site. The patient was given 2 g of Ancef within one hour prior to the procedure. A tourniquet was placed on the operative proximal thigh. The operative knee and lower extremity were prepped and draped in the usual sterile fashion. The operative lower extremity was elevated and exsanguinated with an Esmarch tourniquet. The proximal thigh tourniquet was inflated to 300 mmHg. The knee was flexed. A midline incision was made and carried down through the subcutaneous tissue and fat with sharp dissection. Limited medial and lateral flaps were raised. A medium parapatellar approach was performed. Synovial fluid was normal in color and consistency. The patella was everted and the knee flexed. There were severe tricompartmental osteoarthritic changes noted. A medial release was performed at the joint line to the midcoronal plane. The ACL and PCL and remnants of the menisci were excised. The stepped drill was used to open up the femoral canal which was irrigated and sucked dry. The intramedullary guide orestes was passed up the femur, and the distal cutting block was pinned into place for a 7 degree valgus cut, taking 10 mm of bone off distally. The oscillating saw was used to make the cut. The tibia was subluxed anteriorly. The tibial cutoff jig was placed over the center of the talus distally and over the junction of the medial and middle third of the tibial tubercle proximally. The guide was pinned into place and the oscillating saw was used to make the cut. The tibia was sized. The extension gap was checked and accommodated a 5 mm spacer block with the knee in full extension. There was no varus or valgus instability. At this point, the femur was sized with the posterior referencing guide. Two holes were drilled in 3 degrees of external rotation. The two holes were in line with the transepicondylar axis, perpendicular to Winters's line, and in line with the tibial cutoff jig brought up with the knee flexed 90 degrees and tensed with 2 lamina spreaders, suggesting the femoral rotation was correct. The four-in-one cutting block was pinned into place. The anterior and posterior cuts and chamfer cuts were made with the oscillating saw. The flexion gap was checked and accommodated the 5 mm spacer block at 90 degrees. There was no varus or valgus instability, suggesting the flexion and extension gaps were now equal. The central box was cut out on the femur. The tibia was drilled and punched in proper rotation. Trial components were placed into position with a trial insert. The patella was cut down to 13 mm and sized. Three holes were drilled and the trial button placed in position. With all the trials now in place, the knee was taken through range of motion and came to full extension as evidenced by the fact that with the foot on my abdomen and axial loading, there was no tendency for the knee to flex. The knee was able to be flexed to 125 degrees with good patellar tracking with no lateral tilt or subluxation. At this point, I was satisfied with the overall range of motion, stability, and patellar tracking. The trials were removed. The real components were opened. Two bags of cement were mixed, one with and one without premixed antibiotic. The knee was irrigated with antibiotic saline and sucked dry. Once the cement was in a doughy stage, the real components were cemented into place. The knee was held in full extension, and the patellar component was held with a patellar clamp. All excess cement was removed with curettes. As the cement was hardening, the synovial/capsular layer was infiltrated with a mixture of 150 mg of 0.5% Bupivacaine, 8 mg of Duramorph, 300 mcg of epinephrine, 30 mg of Toradol, 100 mcg of clonidine, 750 mg of cefuroxime and 86 mL of normal saline, followed by an injection of 266 mg of liposomal Bupivacaine. A Hemovac drain was placed in the deep portion of the wound and brought out the anterolateral thigh. Once the cement was completely hardened, the trial liner was removed, and the real insert was opened. The tourniquet was let down, and there was good hemostasis. The knee was then irrigated with a mixture of betadine/saline and then antibiotic saline with pulsatile lavage. The real insert was impacted into the tibia and reduced onto to the femur. The arthrotomy was closed with a few interrupted #1 Ethibond in a figure-of- eight fashion, and then closed in a watertight fashion with a running #2 Stratafix suture. Knee flexion was checked against gravity and came to 125 degrees. The subcutaneous layer was irrigated and closed with 2-0 Statafix, and then 3-0 Vicryl and then flor on the skin. The wound was covered with an occlusive dressing, and secured with cast padding and a bias dressing. The drain was secured with 3-0 nylon. The sponge and needle counts were correct at the end of the case. The patient was then awakened, extubated, and taken to the recovery room in stable condition. DG HERNÁNDEZ MD Jul 03, 2017 13:05
[2017-07-03] MEDS: CEFAZOLIN 2 GM/50 ML (PMX) 50 ML IVPB SCH ×2 (13:36→20:19)
[2017-07-03] MEDS: traMADol 50 MG TAB PO SCH ×2 (13:36→18:00)
[2017-07-03] MEDS: LACTATED RINGER'S 1,000 ML IV SCH ×2 (13:36→21:31)
--- NOTE | 2017-07-03 13:39 | PN ---
Date/Time of Note Date/Time of Note DATE: 07/03/17 TIME: 13:37 Assessment/Plan Lines/Catheters IV Catheter Type (from Nrsg): Peripheral IV Davila in Place (from Nrsg): Yes Assessment/Plan Assessment/Plan Stable in PACU, s/p left TKA -continue Ancef -pain meds as needed -ASA/SCDs -OOB with PT -check AM labs -monitor drain -d/c davila in AM XR of the left knee is pending at this time Subjective 24 Hr Interval Summary Stable in PACU. Denies pain. Moving all extremities. Exam/Review of Systems Vital Signs Vitals Vital Signs Date Time Temp Pulse Resp B/P Pulse Ox O2 Delivery O2 Flow Rate FiO2 07/03/17 13:23 64 14 153/78 100 Nasal Cannula 2.0 07/03/17 13:09 97.6 Exam Free Text/Dictation Hemovac: minimal Dressing dry Incision clean, dry, and intact without redness or drainage Thigh soft 5/5 Quadriceps, Tibialis Anterior, EHL, Gastroc, Soleus, Peroneals Normal sensation Palpable DT/PT, CR <2 sec No distal edema VICKI SOLO PA-C Jul 03, 2017 13:39
--- NOTE | 2017-07-03 13:41 | RADRPT ---
PROCEDURE: XR Knee. CLINICAL INDICATION: Status post knee replacement TECHNIQUE: AP and lateral view of the left knee were obtained. The images reviewed on a PACS work station. COMPARISON: May 30, 2017 FINDINGS: Complete left knee replacement is identified. Prosthetic components are in appropriate position and alignment. No fractures or destructive lesions are observed. Surgical drain is seen in the knee. Soft tissue air is procedural in nature. IMPRESSION: Status post left knee replacement. Prosthetic components are in appropriate position and alignment. RPTAT: AA .Dariel Fontenot MD, MD Date Time Electronically viewed and signed by .Dariel Fontenot MD, MD on 07/03/2017 13:41 .P/
[2017-07-03 14:24] LABS: HEMATOCRIT 34.6 % (37.0-47.0)
[2017-07-03 14:48] LABS: CALCIUM 8.9 mg/dl (8.4-10.2); CREATININE 0.62 mg/dl (0.44-1.00)
--- NOTE | 2017-07-03 14:49 | PDOCDIS ---
Discharge Instructions DIAGNOSIS Discharge Diagnosis s/p left TKA CONDITION Patient Condition: Good HOME CARE INSTRUCTIONS: Diet Instructions: Reduced Calorie ACTIVITY: Activity Restrictions: Slowly Increase Activity Rest between Activity Avoid heavy lifting Do not operate Machinery Do not operate Power Tool Avoid Heavy Housework Keep Limb Elevated Weight Bearing Bathing Restrictions: Shower FOLLOW UP/APPOINTMENTS Follow-up Plan follow up in the office on 07/14/17 VICKI SOLO PA-C Jul 03, 2017 14:49
[2017-07-03] MEDS ORDERED: ASPI325T32 PO (14:51)
[2017-07-03] MEDS ORDERED: PREG50CA PO (14:51)
[2017-07-03] MEDS ORDERED: PANT40TA4 PO (14:51)
[2017-07-03] MEDS ORDERED: TRAM50TA2 PO (14:51)
[2017-07-03] MEDS ORDERED: HYDR-3605 PO (14:51)
[2017-07-03] MEDS ORDERED: BACITRACIN 50000 UNITS INJ ONE (15:19)
[2017-07-03] MEDS ORDERED: TRANEXAMIC ACID 590 MG in SOD CHLORIDE 0.9% 100 ML IVPB ONE ×2 (16:00→19:00)
[2017-07-03] MEDS: PANTOPRAZOLE (EC) 40 MG TAB PO SCH (18:06)
[2017-07-03] MEDS: DOCUSATE SODIUM 100 MG CAP PO SCH (20:19)
[2017-07-03] MEDS: PREGABALIN 50 MG CAP PO SCH (20:19)
[2017-07-04 05:11] LABS: HEMATOCRIT 29.9 % (37.0-47.0); HEMOGLOBIN 9.2 g/dl (12.0-16.0)
[2017-07-04 05:30] LABS: CALCIUM 8.6 mg/dl (8.4-10.2); CREATININE 0.61 mg/dl (0.44-1.00); POTASSIUM 4.7 mmol/L (3.5-5.1)
[2017-07-04] MEDS: LACTATED RINGER'S 1,000 ML IV SCH ×3 (06:23→20:55)
[2017-07-04] MEDS: CEFAZOLIN 2 GM/50 ML (PMX) 50 ML IVPB SCH (06:23)
[2017-07-04] MEDS: traMADol 50 MG TAB PO SCH ×4 (06:24→17:44)
[2017-07-04] MEDS: PANTOPRAZOLE (EC) 40 MG TAB PO SCH ×2 (06:24→17:43)
[2017-07-04 07:49] VITALS: BP 116/61; RESP 18
--- NOTE | 2017-07-04 08:54 | PN ---
Date/Time of Note Date/Time of Note DATE: 07/04/17 TIME: 08:52 Assessment/Plan Lines/Catheters IV Catheter Type (from Nrsg): Peripheral IV Marion in Place (from Nrsg): Yes (D/C NOW) Assessment/Plan Assessment/Plan Stable POD #1, s/p left TKA -d/c Ancef -pain meds as needed -ASA/SCDs -OOB with PT -check AM labs -d/c planning for home Subjective 24 Hr Interval Summary No acute overnight events. Denies pain. Did not start PT yesterday. VSS, afebrile. Will plan to go home upon discharge. Exam/Review of Systems Vital Signs Vitals Vital Signs Date Time Temp Pulse Resp B/P Pulse Ox O2 Delivery O2 Flow Rate FiO2 07/04/17 07:49 97.5 63 18 116/61 98 07/03/17 20:00 Nasal Cannula 2.0 Intake and Output 07/03/17 07/03/17 07/04/17 15:00 23:00 07:00 Intake Total 2705.9 ml 953.9 ml 400 ml Output Total 750 ml 340 ml 915 ml Balance 1955.9 ml 613.9 ml -515 ml Exam Free Text/Dictation Hemovac: 255cc Dressing dry Incision clean, dry, and intact without redness or drainage Thigh soft 5/5 Quadriceps, Tibialis Anterior, EHL, Gastroc, Soleus, Peroneals Normal sensation Palpable DT/PT, CR <2 sec No distal edema Results Result Diagram: 07/04/17 0430 07/04/17 0430 VICKI SOLO PA-C Jul 04, 2017 08:54
[2017-07-04] MEDS: ASPIRIN (EC) 325 MG TAB PO SCH ×2 (08:56→21:32)
[2017-07-04] MEDS: PREGABALIN 50 MG CAP PO SCH ×2 (08:56→21:32)
[2017-07-04] MEDS: LOSARTAN 50 MG TAB PO SCH (08:57)
[2017-07-04] MEDS: DOCUSATE SODIUM 100 MG CAP PO SCH ×2 (08:57→21:32)
[2017-07-04 09:37] LABS: ADD UMIC YES; UR ASCORBIC ACID NEGATIVE (NEGATIVE); UR BACTERIA FEW /HPF (NONE SEEN); UR BILIRUBIN (Dip) NEGATIVE (NEGATIVE); UR BLOOD (Dip) 3+ mg/dL (NEGATIVE); UR CLARITY CLOUDY (CLEAR); UR COLOR YELLOW (YELLOW); UR GLUCOSE (Dip) NEGATIVE (NEGATIVE); UR KETONES (Dip) NEGATIVE (NEGATIVE); UR LEUKOCYTE ESTERASE (Dip) 1+ Leu/ul (NEGATIVE); UR MUCUS FEW /HPF (NONE SEEN); UR NITRITE (Dip) NEGATIVE (NEGATIVE); UR RBC > 182 /HPF (0-5); UR SPECIFIC GRAVITY (Dip) 1.023 (1.003-1.030); UR TOTAL PROTEIN (Dip) 1+ mg/dl (NEGATIVE); UR UROBILINOGEN (Dip) NEGATIVE (NEGATIVE); UR WBC CLUMPS FEW /HPF (NONE SEEN)
[2017-07-04 14:47] VITALS: BP 128/75; RESP 18
--- NOTE | 2017-07-04 16:32 | CONS ---
Date/Time of Note Date/Time of Note DATE: 07/04/17 TIME: 16:29 Assessment/Plan Assessment/Plan Chief Complaint/Hosp Course 1. Osteoarthritis status post left-sided knee replacement Pain control Management per orthopedics 2. Hypertension-controlled Continue home meds Prophylaxis: Aspirin Problems: Consultation Date/Type/Reason Admit Date/Time Jul 03, 2017 at 07:37 Hx of Present Illness Patient 76-year-old female with a history of ulcer arthritis and hypertension. Patient was admitted after elective left knee replacement. Patient does have history of right knee replacement the past. Patient does report some pain at this time but states that the medication does help her. Constitutional: improved, no complaints Eyes: no complaints ENT: no complaints Respiratory: no complaints Cardiovascular: no complaints Gastrointestinal: no complaints Genitourinary: no complaints Musculoskeletal: bone/joint pain Skin: no complaints Neurologic: no complaints Endocrine: no complaints Lymphatic: no complaints Psychological: nl mood/affect, no complaints Immunologic: no complaints Past Medical History Medical History: hypertension Past Surgical History History of right-sided knee replacement and now left-sided Family History Significant Family History: no pertinent family hx Social History Alcohol Use: none Smoking Status: Never smoker Drug Use: none Exam/Review of Systems Vital Signs Vitals Vital Signs Date Time Temp Pulse Resp B/P Pulse Ox O2 Delivery O2 Flow Rate FiO2 07/04/17 14:47 97.9 66 18 128/75 98 07/03/17 20:00 Nasal Cannula 2.0 Intake and Output 07/03/17 07/03/17 07/04/17 15:00 23:00 07:00 Intake Total 2705.9 ml 953.9 ml 400 ml Output Total 750 ml 340 ml 915 ml Balance 1955.9 ml 613.9 ml -515 ml Exam Constitutional: alert, oriented Respiratory: clear to auscultation Cardiovascular: regular rate and rhythm Gastrointestinal: soft, No distended Musculoskeletal: nl extremities to inspection Results Result Diagram: 07/04/17 0430 07/04/17 0430 Results 24 hrs Laboratory Tests Test 07/04/17 04:30 07/04/17 05:00 Hemoglobin 9.2 L Hematocrit 29.9 L Sodium Level 141 Potassium Level 4.7 Chloride Level 102 Carbon Dioxide Level 26 Anion Gap 18 H Blood Urea Nitrogen 14 Creatinine 0.61 Glucose Level 132 Calcium Level 8.6 Urine Color YELLOW Urine Clarity CLOUDY A Urine pH 5.0 Urine Specific [place] 1.023 Urine Ketones NEGATIVE Urine Nitrite NEGATIVE Urine Bilirubin NEGATIVE Urine Urobilinogen NEGATIVE Urine Leukocyte Esterase 1+ H Urine Microscopic RBC > 182 H Urine Microscopic WBC 87 H Urine Bacteria FEW A Urine Mucus FEW A Urine Hemoglobin 3+ H Urine Glucose NEGATIVE Urine Total Protein 1+ H Medications Medications Current Medications Miscellaneous Information 1 ea NOTE XX ; Start 07/03/17 at 10:00; Stop 07/06/17 at 10:01 Losartan Potassium 50 mg 50 mg QAM PO Last administered on 07/04/17 08:57; Admin Dose 50 MG; Start 07/04/17 at 09:00 Lactated Ringer's (Lr) 1,000 ml @ 125 mls/hr Q8H IV Last administered on 06:23; Admin Dose 125 MLS/HR; Start 07/03/17 at 12:55 Tramadol HCl (Ultram) 50 mg Q6 PO Last administered on 07/04/17 12:20; Admin Dose 50 MG; Start 07/03/17 at 12:00; Stop 07/06/17 at 11:59 Hydromorphone HCl (Dilaudid) 1 mg Q3H PRN IV PAIN LEVEL 8-10; Start 07/03/17 at 13:00 Ondansetron HCl (Zofran Inj) 4 mg Q6H PRN IV NAUSEA AND/OR VOMITING; Start at 13:00 Bisacodyl (Dulcolax Supp) 10 mg Q12H PRN [place] CONSTIPATION; Start 07/03/17 at 13: 00 Magnesium Hydroxide (Milk Of Mag) 30 ml BID PRN PO CONSTIPATION; Start at 13:00 Sodium Biphosphate/ Sodium Phosphate (Fleet Enema) 133 ml DAILY PRN [place] CONSTIPATION; Start 07/03/17 at 13:00 Docusate Sodium (Colace) 100 mg BID PO Last administered on 07/04/17 08:57; Admin Dose 100 MG; Start 07/03/17 at 21:00 Diphenhydramine HCl (Benadryl) 25 mg Q6H PRN PO PRURITUS; Start 07/03/17 at 13: 00 Acetaminophen/ Hydrocodone Bitart ([place] (7.5-325)) 1 tab Q4H PRN PO PAIN LEVEL 1-3; Start 07/03/17 at 13:00 Acetaminophen/ Hydrocodone Bitart ([place] (7.5-325)) 2 tab Q4H PRN PO PAIN LEVEL 4-7; Start 07/03/17 at 13:00 Aspirin (Ecotrin) 325 mg BID PO Last administered on 07/04/17 08:56; Admin Dose 325 MG; Start 07/04/17 at 09:00 Pantoprazole (Protonix Tab) 40 mg BID@18 PO Last administered on 07/04/17 06:24; Admin Dose 40 MG; Start 07/03/17 at 18:00 Pregabalin (Lyrica) 50 mg BID PO Last administered on 07/04/17 08:56; Admin Dose 50 MG; Start 07/03/17 at 21:00 ABIMAEL FAROOQ Jul 04, 2017 16:32
[2017-07-04 19:58] VITALS: BP 112/69; RESP 20
[2017-07-05 02:27] VITALS: BP 117/62; RESP 17
[2017-07-05] MEDS: LACTATED RINGER'S 1,000 ML IV SCH ×3 (04:55→20:55)
[2017-07-05] MEDS: PANTOPRAZOLE (EC) 40 MG TAB PO SCH ×2 (05:54→17:41)
[2017-07-05] MEDS: traMADol 50 MG TAB PO SCH ×5 (05:54→23:45)
[2017-07-05 06:00] LABS: HEMOGLOBIN 8.8 g/dl (12.0-16.0)
[2017-07-05 06:30] LABS: CALCIUM 8.2 mg/dl (8.4-10.2); CREATININE 0.69 mg/dl (0.44-1.00); POTASSIUM 3.8 mmol/L (3.5-5.1)
[2017-07-05 07:00] VITALS: BP 141/69; RESP 18
[2017-07-05] MEDS: PREGABALIN 50 MG CAP PO SCH ×2 (08:28→20:33)
[2017-07-05] MEDS: ASPIRIN (EC) 325 MG TAB PO SCH ×2 (08:28→20:33)
[2017-07-05] MEDS: DOCUSATE SODIUM 100 MG CAP PO SCH ×2 (08:28→20:33)
[2017-07-05] MEDS: LOSARTAN 50 MG TAB PO SCH (08:29)
--- NOTE | 2017-07-05 11:04 | PN ---
Date/Time of Note Date/Time of Note DATE: 07/05/17 TIME: 11:03 Assessment/Plan Lines/Catheters IV Catheter Type (from Nrsg): Peripheral IV Marion in Place (from Nrsg): No Assessment/Plan Assessment/Plan Stable, POD #2, s/p left TKA -pain meds as needed -ASA/SCDs -OOB with PT -check AM labs -dressing changed -plan to d/c home tomorrow Subjective 24 Hr Interval Summary No acute overnight events. Having mild pain. Progressing with PT. VSS, afebrile. Will plan to d/c home tomorrow. Exam/Review of Systems Vital Signs Vitals Vital Signs Date Time Temp Pulse Resp B/P Pulse Ox O2 Delivery O2 Flow Rate FiO2 07/05/17 07:00 97.4 66 18 141/69 99 07/03/17 20:00 Nasal Cannula 2.0 Intake and Output 07/04/17 07/04/17 07/05/17 15:00 23:00 07:00 Intake Total 425 ml 500 ml 850 ml Output Total 1400 ml Balance 425 ml 500 ml -550 ml Exam Free Text/Dictation Dressing dry Incision clean, dry, and intact without redness or drainage Thigh soft 5/5 Quadriceps, Tibialis Anterior, EHL, Gastroc, Soleus, Peroneals Normal sensation Palpable DT/PT, CR <2 sec No distal edema Results Result Diagram: 07/05/17 0500 07/05/17 0500 VICKI SOLO PA-C Jul 05, 2017 11:04
--- NOTE | 2017-07-05 13:15 | PN ---
Date/Time of Note Date/Time of Note DATE: 07/05/17 TIME: 13:14 Assessment/Plan VTE Prophylaxis VTE Prophylaxis Intervention: other Lines/Catheters IV [facility] Type ([facility]): Peripheral IV Urinary Cath still in place: No Assessment/Plan Chief Complaint/Hosp Course 1. Osteoarthritis status post left-sided knee replacement Pain control Management per orthopedics 2. Hypertension-controlled Continue home meds Prophylaxis: Aspirin Problems: Subjective 24 Hr Interval Summary Constitutional: no complaints Exam/Review of Systems Vital Signs Vitals Vital Signs Date Time Temp Pulse Resp B/P Pulse Ox O2 Delivery O2 Flow Rate FiO2 07/05/17 07:00 97.4 66 18 141/69 99 07/03/17 20:00 Nasal Cannula 2.0 Intake and Output 07/04/17 07/04/17 07/05/17 15:00 23:00 07:00 Intake Total 425 ml 500 ml 850 ml Output Total 1400 ml Balance 425 ml 500 ml -550 ml Exam Constitutional: alert, oriented Respiratory: clear to auscultation Cardiovascular: regular rate and rhythm Gastrointestinal: soft, No distended Musculoskeletal: nl extremities to inspection Results Result Diagram: 07/05/17 0500 07/05/17 0500 Results 24 hrs Laboratory Tests Test 07/05/17 05:00 Hemoglobin 8.8 L Hematocrit 28.0 L Sodium Level 136 Potassium Level 3.8 Chloride Level 102 Carbon Dioxide Level 29 Anion Gap 9 # Blood Urea Nitrogen 11 Creatinine 0.69 Glucose Level 91 # Hemoglobin A1c 4.5 Calcium Level 8.2 L Medications Medications Current Medications Miscellaneous Information 1 ea NOTE XX ; Start 07/03/17 at 10:00; Stop 07/06/17 at 10:01 Losartan Potassium 50 mg 50 mg QAM PO Last administered on 07/05/17 08:29; Admin Dose 50 MG; Start 07/04/17 at 09:00 Lactated Ringer's (Lr) 1,000 ml @ 125 mls/hr Q8H IV Last administered on 06:23; Admin Dose 125 MLS/HR; Start 07/03/17 at 12:55 Tramadol HCl (Ultram) 50 mg Q6 PO Last administered on 07/05/17 12:32; Admin Dose 50 MG; Start 07/03/17 at 12:00; Stop 07/06/17 at 11:59 Hydromorphone HCl (Dilaudid) 1 mg Q3H PRN IV PAIN LEVEL 8-10; Start 07/03/17 at 13:00 Ondansetron HCl (Zofran Inj) 4 mg Q6H PRN IV NAUSEA AND/OR VOMITING; Start at 13:00 Bisacodyl (Dulcolax Supp) 10 mg Q12H PRN [place] CONSTIPATION; Start 07/03/17 at 13: 00 Magnesium Hydroxide (Milk Of Mag) 30 ml BID PRN PO CONSTIPATION Last administered on 07/05/17 06:05; Admin Dose 30 ML; Start 07/03/17 at 13:00 Sodium Biphosphate/ Sodium Phosphate (Fleet Enema) 133 ml DAILY PRN [place] CONSTIPATION; Start 07/03/17 at 13:00 Docusate Sodium (Colace) 100 mg BID PO Last administered on 07/05/17 08:28; Admin Dose 100 MG; Start 07/03/17 at 21:00 Diphenhydramine HCl (Benadryl) 25 mg Q6H PRN PO PRURITUS; Start 07/03/17 at 13: 00 Acetaminophen/ Hydrocodone Bitart ([place] (7.5-325)) 1 tab Q4H PRN PO PAIN LEVEL 1-3; Start 07/03/17 at 13:00 Acetaminophen/ Hydrocodone Bitart ([place] (7.5-325)) 2 tab Q4H PRN PO PAIN LEVEL 4-7; Start 07/03/17 at 13:00 Aspirin (Ecotrin) 325 mg BID PO Last administered on 07/05/17 08:28; Admin Dose 325 MG; Start 07/04/17 at 09:00 Pantoprazole (Protonix Tab) 40 mg BID@,18 PO Last administered on 07/05/17 05:54; Admin Dose 40 MG; Start 07/03/17 at 18:00 Pregabalin (Lyrica) 50 mg BID PO Last administered on 07/05/17 08:28; Admin Dose 50 MG; Start 07/03/17 at 21:00 ABIMAEL FAROOQ Jul 05, 2017 13:14
[2017-07-05 14:00] VITALS: BP 145/62; RESP 20
[2017-07-05 20:02] VITALS: BP 112/72; RESP 18
[2017-07-06 01:38] VITALS: BP 114/70; RESP 18
[2017-07-06] MEDS: LACTATED RINGER'S 1,000 ML IV SCH ×2 (04:55→12:55)
[2017-07-06] MEDS: PANTOPRAZOLE (EC) 40 MG TAB PO SCH (06:27)
[2017-07-06] MEDS: traMADol 50 MG TAB PO SCH (06:27)
[2017-07-06 06:39] LABS: HEMATOCRIT 26.9 % (37.0-47.0); HEMOGLOBIN 8.4 g/dl (12.0-16.0)
[2017-07-06 07:10] LABS: CALCIUM 8.1 mg/dl (8.4-10.2); CREATININE 0.67 mg/dl (0.44-1.00)
[2017-07-06 08:41] VITALS: BP 116/65; RESP 18
[2017-07-06] MEDS: PREGABALIN 50 MG CAP PO SCH (09:46)
[2017-07-06] MEDS: ASPIRIN (EC) 325 MG TAB PO SCH (09:46)
[2017-07-06] MEDS: LOSARTAN 50 MG TAB PO SCH (09:46)
[2017-07-06] MEDS: DOCUSATE SODIUM 100 MG CAP PO SCH (09:46)
[2017-07-06] MEDS ORDERED: CIPR500T4 PO (14:57)
[2017-07-06] MEDS ORDERED: CEPH500C PO (15:10)
--- NOTE | 2017-07-06 15:10 | PN ---
Date/Time of Note Date/Time of Note DATE: 07/06/17 TIME: 15:07 Assessment/Plan Lines/Catheters IV Catheter Type (from Nrsg): Saline Lock Marion in Place (from Nrsg): No Assessment/Plan Assessment/Plan POD # 3. Stable. -D/C to home -Keflex 500 mg po qid for small area of redness -Cipro 500 mg po bid for UTI -Patient instructed to take probiotic yogurt bid while on abx -Home PT -ASA/SCDs at home -F/u in 1 week Subjective 24 Hr Interval Summary Doing well. Eager to go home. Walked well with PT today. Daughter at bedside. Exam/Review of Systems Vital Signs Vitals Vital Signs Date Time Temp Pulse Resp B/P Pulse Ox O2 Delivery O2 Flow Rate FiO2 07/06/17 08:41 98.1 69 18 116/65 96 07/03/17 20:00 Nasal Cannula 2.0 Intake and Output 07/05/17 07/05/17 07/06/17 15:00 23:00 07:00 Intake Total 1100 ml 950 ml Output Total 900 ml 900 ml Balance 200 ml 50 ml Exam Free Text/Dictation Dressing dry Incision clean, dry, and intact without redness or drainage except one spot at midpoint of incision with bruising vs slight redness 5/5 Tibialis Anterior, EHL, Gastroc Soleus, Peroneals Normal sensation Palpable DP/PT, CR < 2 Sec No distal edema Urine Culture: + Pseudomonas (sens to Cipro) Results Result Diagram: 07/06/17 0514 07/06/17 0514 DG HERNÁNDEZ MD Jul 06, 2017 15:10
--- NOTE | 2017-07-06 19:24 | PN ---
Date/Time of Note Date/Time of Note DATE: 07/06/17 TIME: 19:23 Assessment/Plan VTE Prophylaxis VTE Prophylaxis Intervention: other Lines/Catheters IV [facility] (from [facility]): Saline Lock Urinary Cath still in place: No Assessment/Plan Chief Complaint/Hosp Course 1. Osteoarthritis status post left-sided knee replacement Pain control Management per orthopedics 2. Hypertension-controlled Continue home meds Prophylaxis: Aspirin Discharged today by orthopedics Problems: Subjective 24 Hr Interval Summary Constitutional: no complaints Exam/Review of Systems Vital Signs Vitals Vital Signs Date Time Temp Pulse Resp B/P Pulse Ox O2 Delivery O2 Flow Rate FiO2 07/06/17 08:41 98.1 69 18 116/65 96 07/03/17 20:00 Nasal Cannula 2.0 Intake and Output 07/05/17 07/05/17 07/06/17 15:00 23:00 07:00 Intake Total 1100 ml 950 ml Output Total 900 ml 900 ml Balance 200 ml 50 ml Exam Constitutional: alert, oriented Respiratory: clear to auscultation Cardiovascular: regular rate and rhythm Gastrointestinal: soft, No distended Musculoskeletal: nl extremities to inspection Results Result Diagram: 07/06/17 0514 07/06/17 0514 Results 24 hrs Laboratory Tests Test 07/06/17 05:14 Hemoglobin 8.4 L Hematocrit 26.9 L Sodium Level 134 L Potassium Level 4.0 Chloride Level 100 Carbon Dioxide Level 30 Anion Gap 8 Blood Urea Nitrogen 10 Creatinine 0.67 Glucose Level 89 Calcium Level 8.1 L ABIMAEL FAROOQ Jul 06, 2017 19:24
--- NOTE | 2017-07-07 08:08 | DS ---
Date/Time of Note Date/Time of Note DATE: 07/07/17 TIME: 08:06 Discharge Summary Admission/Discharge Info Admit Date/Time Jul 03, 2017 at 07:37 Discharge Date/Time Jul 06, 2017 at 16:06 Discharge Diagnosis s/p left TKA Patient Condition: Good Hospital Course This is a 76-year-old female, who was seen in the clinic initially complaining of left knee pain. X-rays demonstrated advanced osteoarthritis of the left knee , and it was thought she would benefit from a left total knee arthroplasty. On 07/03/2017 the patient was admitted and taken to the operating room, where she underwent a left total knee arthroplasty. There were no intraoperative palpitations. The patient tolerated procedure well. She was taken to recovery room in stable condition. Pain was well-controlled oral pain medication. She was started on aspirin and SCDs for DVT prophylaxis. She remained hemodynamically stable neurovascularly intact throughout her hospital stay. She began physical therapy on postoperative day 1, and continued to make good progress. She was deemed stable for discharge home on postoperative day 3. Prior to discharge, the incision was inspected and noted to be clean, dry, and intact. Dressing changes were done prior to patient going home. Discharge instructions: The patient be discharged home in stable condition. She is to resume a normal diet. She is weightbearing as tolerated on the left lower extremity. She will begin physical therapy with home health. She was discharged home with medication noted above, and is to resume all of her normal home medication. She is to call the office or go to the emergency room for any concerns including increased redness, swelling, drainage, fever, or any concerns regarding the operation or site of incision. Home Meds Active Scripts Cephalexin* (Cephalexin*) 500 Mg Capsule, 500 MG PO Q6, #28 CAP Prov:DG HERNÁNDEZ MD 07/06/17 Ciprofloxacin Hcl* (Ciprofloxacin Hcl*) 500 Mg Tablet, 500 MG PO BID for 3 Days , #6 TAB Prov:ABIMAEL FAROOQ 07/06/17 Pantoprazole* (Pantoprazole*) 40 Mg Tablet.dr, 40 MG PO BID@06,18 for 40 Days, # 40 Prov:VICKI SOLO PA-C 07/03/17 Pregabalin* (Lyrica*) 50 Mg Capsule, 50 MG PO BID for 30 Days, #60 CAP Prov:VICKI SOLO PA-C 07/03/17 Tramadol HCl (Tramadol HCl) 50 Mg Tablet, 50 MG PO Q6 for 30 Days, #60 TAB Prov:VICKI SOLO PA-C 07/03/17 Hydrocodone/Acetaminophen (Hydrocodon-Acetaminoph 7.5-325) 1 Each Tablet, 1 TAB PO Q4H Y for PAIN LEVEL 1-3 for 30 Days, #60 TAB Prov:VICKI SOLO PA-C 07/03/17 Aspirin (Aspir-Silvia) 325 Mg Tablet., 325 MG PO BID for 40 Days, #80 Prov:VICKI SOLO PA-C 07/03/17 Reported Medications Losartan Potassium* (Losartan Potassium*) 50 Mg Tablet, 50 MG PO QAM, TAB 07/02/17 Discontinued Reported Medications Hydrochlorothiazide* (Hydrochlorothiazide*) 12.5 Mg Tablet, 12.5 MG PO DAILY, # 30 TAB 01/03/17 Discontinued Scripts Aspirin (Aspir-Silvia) 325 Mg Tablet., 325 MG PO BID for 42 Days, #84 Prov:VICKI SOLO PA-C 02/12/17 Oxycodone Hcl* (IR) (Roxicodone*) 5 Mg Tab, 5 MG PO Q4H Y for PAIN LEVEL 1-3 for 30 Days, #60 TAB Prov:VICKI SOLO PA-C 02/12/17 Pantoprazole* (Pantoprazole*) 40 Mg Tablet., 40 MG PO BID@06,18 for 40 Days, # 40 Prov:VICKI SOLO PA-C 02/12/17 Pregabalin* (Lyrica*) 25 Mg Capsule, 50 MG PO BID for 30 Days, #60 CAP Prov:VICKI SOLO PA-C 02/12/17 Losartan Potassium* (Losartan Potassium*) 50 Mg Tablet, 50 MG PO BID for 30 Days , TAB Prov:AIRAM CUMMINGS NP 01/07/17 Follow-up Plan Follow-up in the office on 07/16/2017 Primary Care Provider VICKI Stewart PA-C Jul 07, 2017 08:08
== END 2017-07-06 16:06 | disposition home health service (06) | DRG 470 ==
LOC: REC 07:37 → MS1 16:15
PROVIDERS: ADMIT Orthopaedic Surgery; ATTEND Orthopaedic Surgery
PROC: 0SRD0J9 Replacement of Left Knee Joint with Synthetic Substitute, Cemented, Open Approach (ICD-10-PCS; principal; 2017-07-03 10:00)
DX: M17.12 Unilateral primary osteoarthritis, left knee (principal); I10 Essential (primary) hypertension; R01.1 Cardiac murmur, unspecified; Z96.651 Presence of right artificial knee joint
CPT/HCPCS: 73560; 80048; 81001; 83036; 85014; 85018; 86850; 86900; 86901; 86920; 87081; 87086; 88304; 88311; 97110; 97116; 97162; 97166; 97530; 97535; C1776; J0360; J0690; J1100; J2250; J2405; J2710; J3010; J3370; J7120

== ENCOUNTER → 2017-07-14 | Outpatient (CLI) | payer OTHER ==
[~2017-07-14] MED LIST changes: +CEPH500C PO; +CIPR500T4 PO; -EPHEDrine SULFATE 50 MG/5 ML SYG ONE; +HYDR-3605 PO; -HYDR12.58 PO; -LOSA25TA5 PO; -LYRI25 PO; -OXYC-481 PO; +PREG50CA PO; +TRAM50TA2 PO
--- NOTE | 2017-07-14 10:00 | RADRPT ---
PROCEDURE: X-RAY LEFT KNEE CLINICAL INDICATION: Total knee replacement. Status post surgery. Follow-up. TECHNIQUE: Three views of the left knee are available for review. COMPARISON: 07/02/2017. FINDINGS: Patient is status post total knee replacement. Knee replacement was performed after the prior examin ation of 07/02/2017. The knee replacement is in good position and alignment without evidence of migr ation, loosening, infection, or fracture. No bone destructive or erosive changes are seen. No acut e fracture is identified. There is a small effusion. IMPRESSION: 1. Appropriate postoperative appearance of left knee replacement. 2. No evidence for fracture. RPTAT: XX .Ronnell Fournier MD, MD Date Time Electronically viewed and signed by .Ronnell Fournier MD, on 07/14/2017 10:00 .T/
--- NOTE | 2017-07-14 10:04 | PN ---
Date/Time of Note Date/Time of Note DATE: 07/14/17 TIME: 10:02 Outpatient Progress Note HPI The patient presents today for her first postoperative evaluation. She is 10 days status post left total knee arthroplasty. She is doing well overall. She denies any significant pain. She has not even been taking pain medication. She denies any fevers or chills. She is taking aspirin twice daily for DVT prophylaxis. She has had only one home health physical therapy evaluation thus far. She presents today for her first postoperative evaluation. Physical Exam On exam today, she is alert and oriented 4, and in no acute distress. Exam of the left knee demonstrates it to be clean dry and intact. Ankur are in place. There is no erythema, warmth, pus, or drainage noted. Her range of motion is excellent, 0110. Varus and valgus forces are stable. Compartments are soft. She is neurovascularly intact distally. Imaging: X-rays left knee were obtained today and reviewed by me. They demonstrate good anatomic alignment. There are no fractures or dislocations identified. Allergies Coded Allergies: No Known Allergy (Unverified , 07/03/17) Family Hx Patient History: Endocrine and metabolic disease G8 SIBLING (DIABETES IN ONE SISTER ) Hypertension 33 FATHER, Onset:Unknown 32 MOTHER, Onset:Unknown G8 SIBLING, Onset:Unknown (HYPERTENSION IN BROTHER ) Assessment/Plan Assessment: 10 days status post left total knee arthroplasty Plan: The ankur removed today, and Steri-Strips were applied. She is to continue doing home health physical therapy and transition to an outpatient physical therapy program. She is also to continue aspirin 325 mg twice daily for DVT prophylaxis. She will follow-up with Dr. Hernández at [facility] in 4 weeks for a repeat evaluation. Medications Home Meds Active Scripts Cephalexin* (Cephalexin*) 500 Mg Capsule, 500 MG PO Q6, #28 CAP Prov:DG HERNÁNDEZ MD 07/06/17 Ciprofloxacin Hcl* (Ciprofloxacin Hcl*) 500 Mg Tablet, 500 MG PO BID for 3 Days , #6 TAB Prov:ABIMAEL FAROOQ 07/06/17 Pantoprazole* (Pantoprazole*) 40 Mg Tablet., 40 MG PO BID@06,18 for 40 Days, # 40 Prov:VICKI SOLO PA-C 07/03/17 Pregabalin* (Lyrica*) 50 Mg Capsule, 50 MG PO BID for 30 Days, #60 CAP Prov:VICKI SOLO PA-C 07/03/17 Tramadol HCl (Tramadol HCl) 50 Mg Tablet, 50 MG PO Q6 for 30 Days, #60 TAB Prov:VICKI SOLO PA-C 07/03/17 Hydrocodone/Acetaminophen (Hydrocodon-Acetaminoph 7.5-325) 1 Each Tablet, 1 TAB PO Q4H Y for PAIN LEVEL 1-3 for 30 Days, #60 TAB Prov:VICKI SOLO PA-C 07/03/17 Aspirin (Aspir-Silvia) 325 Mg Tablet.dr, 325 MG PO BID for 40 Days, #80 Prov:VICKI SOLO PA-C 07/03/17 Reported Medications Losartan Potassium* (Losartan Potassium*) 50 Mg Tablet, 50 MG PO QAM, TAB 07/02/17 VICKI SOLO PA-C Jul 14, 2017 10:04
== END | disposition home or self-care (01) ==
LOC: HKI 09:39
PROVIDERS: ATTEND Orthopaedic Surgery
DX: Z47.1 Aftercare following joint replacement surgery (principal); Z96.652 Presence of left artificial knee joint